=== PATIENT | male | born 1960 | race Hispanic/Latino ===

== ENCOUNTER 2018-06-23 21:01 | Inpatient (IN) | payer SELFPAY ==
[2018-06-23] MEDS ORDERED: Dextrose 5 % And 0.9 % NaCl 1,000 ML IV SCH (22:00)
[2018-06-23] MEDS ORDERED: Lorazepam 2 MG/ML VIAL SLOW IVP PRN (22:13)
[2018-06-23] MEDS: Thiamine HCl 200 MG/2 ML VIAL SLOW IVP SCH ×2 (22:28→22:58)
[2018-06-23] MEDS: Dextrose 5 %-0.45 % NaCl 1,000 ML IV SCH (22:33)
[2018-06-23 22:44] LABS: INR-International Normal Ratio 1.3; PTT 30.2 SEC (22.9-36.1); Prothrombin Time 16.4 SEC (12.0-14.7)
[2018-06-23] MEDS: ADMIXTURE FEE CHEMO IVP SCH (22:58)
[2018-06-23] MEDS: OCTREOTIDE ACETATE IVPB SCH (22:58)
[2018-06-23] MEDS: SODIUM CHLORIDE 0.9% IVP SCH (22:58)
[2018-06-23] MEDS: PANTOPRAZOLE IVP SCH (22:58)
[2018-06-23] MEDS: SODIUM CHLORIDE 0.9% IVPB SCH (22:58)
[2018-06-23 23:03] LABS: ALT (SGPT) 48 U/L (8-55); AST (SGOT) 46 U/L (5-34); Albumin 3.4 g/dL (3.5-5.0); Alkaline Phosphatase 76 U/L (40-150); Anion Gap 12 mmol/L (10-20); BUN (Urea Nitrogen) 17 mg/dL (8.4-25.7); Bilirubin, Total 1.1 mg/dL (0.2-1.2); Calc. Creatinine Clearance 111 mL/min (70-130); Calcium 7.9 mg/dL (7.8-10.44); Carbon Dioxide 22 mmol/L (22-29); Chloride 110 mmol/L (98-107); Estimated GFR-MDRD Greater than 90; Glucose 149 mg/dL (70-105); Potassium 4.7 mmol/L (3.5-5.1); Protein, Total 5.4 g/dL (6.0-8.3); Sodium 139 mmol/L (136-145)
[2018-06-23 23:45] LABS: #Lymphocytes 1.4 thou/uL (1.20-3.40); #Monocytes 0.4 thou/uL (0.11-0.59); #Neutrophils 5.6 thou/uL (1.40-6.50); %Basophils 0.1 % (0.0-1.0); %Eosinophils 0.1 % (0.0-10.0); %Lymphocytes 18.9 % (21.0-51.0); %Monocytes 5.5 % (0.0-10.0); %Neutrophils 75.5 % (42.0-75.0); Hemoglobin 8.9 g/dL (14.0-18.0); MDiff Complete? YES; Macrocytosis SLIGHT = 6-15 cells (100X) (0-5/hpf); Mean Corpuscular HGB CONC 35.4 g/dL (32.0-36.0); Mean Corpuscular Hemoglobin 37.2 pg (27.0-31.0); Mean Platelet Volume 7.5 fL (7.4-10.4); PLT Morphology Comment Appears Decreased; Platelet Count 105 thou/uL (130-400); RBC Distribution Width 12.6 % (11.5-14.5); Red Blood Cell (RBC) Count 2.39 mill/uL (4.70-6.10); White Blood Cell (WBC) Count 7.4 thou/uL (4.8-10.8)
--- NOTE | 2018-06-24 01:11 | HP ---
DATE OF ADMISSION: 06/23/2018 CHIEF COMPLAINT: Vomiting blood. HISTORY OF PRESENT ILLNESS: This is a 57-year-old male with a known history of chronic live r disease with history of chronic smoking and alcohol and severe alcohol consumption. Patient was ne kb hospitalized according to him and has no other known medical issues. He noticed a sudden onset o f vomiting, which started last night with profuse blood vomiting 2-3 times and to the point that he w as feeling dizzy, so he came to the ER and had a thorough evaluation and he was noted to having melan otic stool at the freestanding ER. Patient was transferred to [facility] as a direct admit to the [facility]. Patient was seen in the [facility] with physical therapist technician. Patient denies having any chest pain, n o nausea, no vomiting, no diarrhea at this time. PAST MEDICAL HISTORY: History of chronic alcoholism. PAST SURGICAL HISTORY: None. SOCIAL HISTORY: Patient is a known smoker, smokes half pack a day, and does drink alcohol, 2-3 beers every day. No history of illicit drug use otherwise. FAMILY HISTORY: No significant family history of coronary artery disease or any cancers in the famil y were noted. ALLERGIES: No known drug allergies. HOME MEDICATIONS: None. REVIEW OF SYSTEMS: All 12 systems are reviewed with the patient thoroughly and found to be negative at this time except the ones described in the HPI. Constitutional: Weight loss or gain, sense of we ll-being, ability to conduct usual activities, exercise tolerance. Skin/Breast: Rash, itching, zhu ges in hair growth or loss, nail changes, breast lumps, tenderness, swelling, nipple discharge. Eyes : Vision, double vision, tearing, blind spots, pain. ENT/Mouth: Headaches (location, time of onset , duration, precipitating factors), vertigo, lightheadedness, injury. Vision, double vision, tearing, blind spots, pain, nose bleeding, colds, obstruction, discharge, dental difficulties, gingival bleed ing, dentures, neck stiffness, pain, tenderness, masses in thyroid or other areas. Cardiovascular: Precordial pain, substernal distress, palpitations, syncope, dyspnea on exertion, orthopnea, nocturna l paroxysmal dyspnea, edema, cyanosis, hypertension, heart murmurs, varicosities, phlebitis, claudica tion. Respiratory: Pain, shortness of breath, wheezing, stridor, cough, hemoptysis, fever or night sweats. Gastrointestinal: Poor appetite, dysphagia, indigestion, abdominal pain, heartburn, eructat ion, nausea, vomiting, hematemesis, jaundice, constipation, or diarrhea, abnormal stools (mika-colore d, tarry, bloody, greasy, foul smelling), flatulence, hemorrhoids, recent changes in bowel habits. G enitourinary: Urgency, frequency, dysuria, nocturia, hematuria, polyuria, oliguria, unusual (or zhu ge in) color of urine, stones, hesitancy, change in size of stream, dribbling, acute retention or inc ontinence, libido, potency. Musculoskeletal: Pain, swelling, redness or heat of muscles or joints, limitation, of motion, muscular weakness, atrophy, cramps. Neurologic/Psychiatric: Convulsions, par alyses, tremor, incoordination, paresthesias, difficulties with memory of speech, sensory or motor di sturbances, or muscular coordination (ataxia, tremor), emotional problems, anxiety, depression, previ ous psychiatric care, unusual perceptions, hallucinations. Allergy/Immunologic: Skin rash, anemia, bleeding tendency, polydipsia, polyuria, intolerance to heat or cold. PHYSICAL EXAMINATION: VITAL SIGNS: Blood pressure is 115/59, heart rate is 95, respiratory rate 16, saturation 99%. GENERAL: The patient is moderately built and moderately nourished, does not appear to be in acute di stress at this time. Alert and oriented x3. HEENT: Atraumatic, normocephalic. PERRLA. Extraocular movements were intact. Oral mucosa is pink and moist. CARDIOVASCULAR: S1, S2 normal. No murmurs, rubs, or gallops. LUNGS: Bilateral air entry was equal. No wheezing, no crackles. ABDOMEN: Soft, nontender. No guarding, no rebound tenderness. Bowel sounds normal. MUSCULOSKELETAL: No calf tenderness. No pedal edema. EXTREMITIES: No joint tenderness, no joint swelling. SKIN: No cyanosis, no erythema, no rash, no pallor. NEUROLOGIC: Cranial nerve examination II-XII intact. No focal deficit noted at this time. LABORATORY DATA: WBC is 7.4, hemoglobin is 8.9, hematocrit is 25.1, platelets are 105. His sodium i s 139, potassium 4.7, chloride 110, bicarb is 22, BUN is 17, creatinine is 0.73, blood sugar 149. T 46, ALT 48. ASSESSMENT AND PLAN: 1. Acute severe upper gastrointestinal bleed secondary to chronic alcohol use. 2. Acute thrombocytopenia. 3. Acute anemia of blood loss. 4. Possible history of alcoholic liver cirrhosis. PLAN: 1. Plan is to admit the patient to the [facility] and continue the patient with a Protonix drip at this ti md and we will also start him on octreotide drip, as the patient had severe hematemesis and severely tachycardic at this time. We will consult GI in the morning and keep the patient n.p.o. 2. Patient has acute blood loss and his hemoglobin dropped to 8.9 and tachycardia at this time. We will give 1 unit of PRBC to keep the hemoglobin close to 10 at this time, because of the acute bleedi ng. 3. Patient has severe thrombocytopenia likely from chronic liver disease. We will closely monitor. We will get an ultrasound of the abdomen to look for an evidence of liver cirrhosis. 4. Deep venous thrombosis prophylaxis, SCDs. 5. Patient has history of alcoholism. We will start the patient on thiamine 100 mg daily and with f olic acid. I spent 75 minutes with this patient.
[2018-06-24 07:27] LABS: Anion Gap 11 mmol/L (10-20); BUN (Urea Nitrogen) 14 mg/dL (8.4-25.7); Calc. Creatinine Clearance 113 mL/min (70-130); Calcium 7.5 mg/dL (7.8-10.44); Carbon Dioxide 21 mmol/L (22-29); Chloride 109 mmol/L (98-107); Estimated GFR-MDRD Greater than 90; Glucose 186 mg/dL (70-105); Potassium 3.9 mmol/L (3.5-5.1); Sodium 137 mmol/L (136-145)
[2018-06-24] MEDS: Folic Acid 1 MG TAB PO SCH (09:39)
[2018-06-24] MEDS: Dextrose 5 %-0.45 % NaCl 1,000 ML IV SCH (09:42)
[2018-06-24] MEDS ORDERED: cefTRIAXone Sodium 1,000 MG in Syringe 0 ML IVPB SCH (11:30)
--- NOTE | 2018-06-24 12:13 | OP ---
DATE OF PROCEDURE: 06/24/2018 PROCEDURE: Esophagogastroduodenoscopy (diagnostic). INDICATION FOR PROCEDURE: Hematemesis, melena. DESCRIPTION OF PROCEDURE: After the risks of the procedure were explained to the patient including risks of bleeding, infection, perforation, reaction to anesthesia and/or pain, informed consent was obtained. The patient was then taken to the endoscopy suite where deep sedation was administered via propofol and anesthesia support. Once adequate sedation was achieved, the standard gastroscope was introduced into the mouth with intubation of the esophagus, stomach and the proximal small intestine with the findings listed below. The patient tolerated the procedure well with no immediate perioperative complications. FINDINGS: Esophagus: Normal-appearing mucosa was seen in the proximal and mid esophagus. What appeared to be possible small esophageal varices that flattened completely with insufflation were seen in the distal esophagus extending to the GE junction. They did not exhibit any signs of active/recent bleeding nor did they exhibit any evidence of red spots, fibrin clots, or red faviola sign. There was no evidence of erosions, ulcerations, mass lesions or active/recent bleeding also seen in the distal esophagus. The diaphragmatic pinch was seen at approximately 37 cm while the GE junction was seen at 35 cm denoting a 2 cm hiatal hernia. Stomach: In the proximal stomach within the gastric cardia/within the hernia sac itself were noted to be small red dots with what appeared to be possible red faviola sign within the gastric cardia; however, there were no gastric varices associated with these findings. Given the relative lack of esophageal varices and lack of gastric varices in association with this finding, no intervention was taken at this time; however, throughout the entire remainder of the stomach , including the gastric fundus, body and proximal antrum, there was mild to moderate increased mucosal erythema in a mosaic pattern without any evidence of erosions, ulcerations or active/recent bleeding. Normal appearing mucosa was seen in the gastric antrum. Again, no evidence of active/recent bleeding was seen during this portion of the exam. Duodenum: Normal-appearing mucosa was seen in both the duodenal bulb and second portion of the duodenum. There was no evidence of erosions, ulcerations , mass lesions or active/recent bleeding. IMPRESSION: 1. Possible small distal esophageal varices that flattened completely with insufflation (esophageal varices grade I). 2. 2 cm hiatal hernia. 3. No evidence of gastric varices, but red spots were seen in the gastric cardia concerning for red faviola sign vs portal hypertensive gastropathy vs Camer[place] erosions, but no active bleeding seen in this region as well. 4. [id number] portal hypertensive gastropathy. RECOMMENDATIONS: 1. We would continue to trend H and H and transfuse as necessary to maintain an H and H of 7/21. 2. Continue to monitor clinically for signs of active GI bleeding. 3. We would continue octreotide drip for now with a total therapy duration of 72 hours. 4. We would continue the pantoprazole drip for the next 24 hours, then transfer to pantoprazole 40 mg b.i.d. 5. We would place the patient on ceftriaxone 1 g daily for infection prophylaxis in a patient with an upper gastrointestinal bleed in light of possible cirrhosis. 6. Agree with placing the patient on a possible withdrawal protocol given the amount of alcohol he has been drinking as an outpatient. 7. We would place the patient on propranolol 20 b.i.d. for portal hypertensive gastropathy and probable bleeding from this site. 8. If the patient has repeat episode of hematemesis, continued drop in his H and H or continued melena, would recommend repeat upper endoscopy with possible band ligation of the red spots within the gastric cardia. We will continue to follow. Please call with any questions. KENNEDY
--- NOTE | 2018-06-24 12:22 | CON ---
DATE OF CONSULTATION: 06/24/2018 REASON FOR CONSULTATION: Hematemesis, melena. CONSULTING PHYSICIAN: Dr. Carlos A Mckeon HISTORY OF PRESENT ILLNESS: The patient is a 57-year-old male with past medical history of tobacco abuse, alcohol dependence and chronic liver disease presenting with complaints of hematemesis. He states that he was in his usual state of health until yesterday when he had acute onset of nausea that was shortly followed by vomiting. With his vomitus, he vomited bright red blood approximately 3-4 times continuing into today. He also endorsed approximately 3-4 black color liquid stools during the same time period as well. With the onset of both the nausea, vomiting, and diarrhea, he also had associated increased dizziness, but no loss of consciousness. With the onset of these symptoms prompted him to seek medical care assistance at one of the freestanding Urgent Care Clinics. While in the urgent care clinic, he was noted to have significant anemia as well as melena and ultimately transferred to [facility] for further evaluation. Upon evaluation today, he currently denies any further nausea or vomiting, fevers, chills, shortness of breath, chest pain, dysphagia, odynophagia or further episodes of melena. He does, however, endorse some periumbilical abdominal pain that has been present since this morning characterized as a sharp/cramping type pain, nonradiating and reaching a severity of approximately 3/10. There is no clear alleviating or exacerbating factors with his abdominal pain. REVIEW OF SYSTEMS: A 10-category review of systems was obtained with all responses negative except for the pertinent positives as listed in the HPI. PAST MEDICAL HISTORY: As per HPI. PAST SURGICAL HISTORY: None. FAMILY HISTORY: States that his father was diagnosed with an unknown cancer at the age of 62. Uncle with colon cancer diagnosed after the age of 60. SOCIAL HISTORY: He smokes approximately one half pack per day, but also drinks approximately 2-3 beers daily with more in the weekends consuming upwards of 6- 10 beers on the weekends. Denies any illicit drug use. HOME MEDICATIONS: None. ALLERGIES: No known drug allergies. PHYSICAL EXAMINATION: VITAL SIGNS: Temperature 98.1, pulse 86, blood pressure 105/60, respiratory rate 20, satting 98% on room air. GENERAL: The patient is lying in bed in no acute distress. He is alert and oriented x4. Jordanian speaking only. NECK: Supple. No JVD noted. CARDIOVASCULAR: Regular rate and rhythm with no discernible murmurs, gallops or rubs. LUNGS: Clear to auscultation bilaterally with no discernible wheezes or rales. ABDOMEN: Normoactive bowel sounds, soft, nondistended, mild tenderness to palpation in the suprapubic/periumbilical regions. EXTREMITIES: No cyanosis, clubbing or edema. LABORATORY DATA: CBC with a white blood cell count of 7.4, hemoglobin 8.9, hematocrit 25.1, platelets 105. Chemistry with a sodium of 137, potassium 3.9, chloride 109, CO2 21, BUN 14, creatinine 0.73, glucose 186, AST 46, ALT 48, alkaline phosphatase 76, total bilirubin 1.1, albumin 3.4. INR 1.3, APRI score 1.1. FIB-4 score 3.48. IMAGING DATA: No current GI imaging is available for review. ASSESSMENT AND PLAN: The patient is a 57-year-old male with past medical history of tobacco abuse, alcohol dependence and chronic liver disease presenting with a probable upper GI bleed. Upper GI bleed. The patient is presenting with a longstanding history of alcohol dependence/abuse who was in his usual state of health until yesterday when he had the acute onset of both nausea and vomiting with hematemesis from the first episode. He continued to have hematemesis x3 after that in addition to 3-4 black liquid stools concerning for an upper GI bleeding source. He denies any use of frequent NSAIDs that may contribute to the current problem; however, with his alcohol history, the prospect of cirrhosis is more likely especially with noninvasive calculations of both the APRI and FIB-4 scores showing elevated levels with probable fibrosis and more specifically probable cirrhosis. Differential could also include peptic ulcer disease, arteriovenous malformation, Dieulafoy lesion, esophagitis, gastritis, esophageal varices, gastric varices or possible GI neoplasm. RECOMMENDATIONS: 1. We would keep patient n.p.o. for now with plans for EGD later on this morning. 2. We will proceed with EGD later on today for evaluation of the upper GI tract and identification of a possible GI bleeding source. 3. Would obtain right upper quadrant abdominal ultrasound for visualization of the liver and probable cirrhosis. 4. Strongly recommend alcohol cessation with withdrawal protocols in place given the significant amount of alcohol he is consuming as an outpatient. 5. Further recommendations to follow upper endoscopy. We will continue to follow. Please call with any questions. KENNEDY
[2018-06-24 12:32] LABS: Hemoglobin 8.4 g/dL (14.0-18.0)
[2018-06-24 14:05] VITALS: BMI 27.3
[2018-06-24] MEDS ORDERED: Lidocaine 1% PF 5 ML VIAL ONE (15:02)
[2018-06-24] MEDS ORDERED: PROPOFOL 200 MG/20 ML VIAL ONE (15:02)
[2018-06-24] MEDS: cefTRIAXone\\ROCEPHIN 1 GM in Sodium Chloride 0.9% 100 ML IVPB SCH (15:24)
--- NOTE | 2018-06-24 15:32 | ULT ---
ULTRASOUND ABDOMEN COMPLETE: HISTORY: A 57-year-old male with liver disease, possible cirrhosis. COMPARISON: None. FINDINGS: Liver: Echotexture diffusely slightly heterogeneous. Margins questionably slightly nodular. Not en larged. Gallbladder: Diffuse mural thickening, up to 5 mm, surrounded by pericholecystic fluid/edema. No ga llstones or sludge identified. Common duct: 4 mm. Spleen: 13.5 x 7.5 x 11 cm. Although the greatest dimension is less than 15 cm, the hilum has a lob ulated contour. Pancreas: Nonspecific sonographic appearance. Kidneys: No hydronephrosis. Abdominal aorta: No aneurysm. Inferior vena cava: Hepatic portion unremarkable. Portal vein: Hepatopetal flow in main portal vein. IMPRESSION: 1. Questionable hepatic cirrhosis. 2. Mural thickening and pericholecystic fluid/edema involving the gallbladder. Possible etiologies include hypoalbuminemia and liver disease, and acute cholecystitis. 3. Questionable mild splenomegaly. JN R POS: TPC
[2018-06-24 15:45] LABS: Hemoglobin 8.3 g/dL (14.0-18.0)
--- NOTE | 2018-06-24 15:47 | PDOC.PN ---
- Subjective Encounter Start Date: 06/24/18 Encounter Start Time: 15:45 Subjective: feels much better. passing dark stoolsbut no vomiting -: no abd pain - Objective Resuscitation Status: Resuscitation Status FULL:Full Resuscitation MAR Reviewed: Yes Vital Signs & Weight: Vital Signs (12 hours) Temp Pulse Pulse Resp BP BP Pulse Ox 06/24/18 12:00 98.5 F 93 18 114/73 100 06/24/18 08:00 98.1 F 86 20 06/24/18 07:00 98.1 F 86 20 105/60 98 06/24/18 04:22 98.2 F 75 19 102/61 99 06/24/18 04:01 98.9 F 86 15 102/61 100 Weight Admit Weight 154 lb Weight 154 lb I&O: 06/23/18 06/24/18 06/25/18 06:59 06:59 06:59 Intake Total 1225 Balance 1225 Result Diagrams: 06/24/18 12:21 06/24/18 06:52 Additional Labs: Laboratory Tests 06/23/18 06/24/18 22:28 12:21 Hgb 8.9 L 8.4 L labs reviewed Phys Exam - Physical Examination Constitutional: NAD HEENT: PERRLA, moist MMs, sclera anicteric, oral pharynx no lesions Neck: no nodes, no JVD, supple, full ROM Respiratory: no wheezing, no rales, no rhonchi, clear to auscultation bilateral Cardiovascular: RRR, no significant murmur, no rub Gastrointestinal: soft, non-tender, no distention, positive bowel sounds Musculoskeletal: no edema, pulses present Neurological: non-focal, normal sensation, moves all 4 limbs Psychiatric: normal affect, A&O x 3 Skin: no rash Dx/Plan (1) UGIB (upper gastrointestinal bleed) Code(s): K92.2 - GASTROINTESTINAL HEMORRHAGE, UNSPECIFIED Status: Acute Comment: Monitor H/H.Stable for now. S/P EGD w/o any active bleed (2) Acute blood loss anemia Code(s): D62 - ACUTE POSTHEMORRHAGIC ANEMIA Status: Acute (3) Cholelithiasis and acute cholecystitis without obstruction Code(s): K80.00 - CALCULUS OF GALLBLADDER W ACUTE CHOLECYST W/O OBSTRUCTION Status: Acute (4) Alcohol abuse Code(s): F10.10 - ALCOHOL ABUSE, UNCOMPLICATED Status: Chronic Comment: [facility] protocol (5) Thrombocytopenia Code(s): D69.6 - THROMBOCYTOPENIA, UNSPECIFIED Status: Acute Comment: roshni chronic from Splenomegaly forn liver disease - Plan out of bed/ambulate, DVT proph w/SCDs Cont octreotide & PPI drip. -: add Propranolol for possible varices. -: add rocephin for roshni Cholecystitis,SBP prophylaxis -: monitor H/H serially. -: [facility] protocol * . Review of Systems - Review of Systems Constitutional: negative: fever, chills, sweats, weakness, malaise, other ENT: negative: Ear Pain, Ear Discharge, Nose Pain, Nose Discharge, Nose Congestion, Mouth Pain, Mouth Swelling, Throat Pain, Throat Swelling, Other Respiratory: negative: Cough, Dry, Shortness of Breath, Hemoptysis, SOB with Excertion, Pleuritic Pain, Sputum, Wheezing Cardiovascular: negative: chest pain, palpitations, orthopnea, paroxysmal nocturnal dyspnea, edema, light headedness, other Gastrointestinal: negative: Nausea, Vomiting, Abdominal Pain, Diarrhea, Constipation, Melena, Hematochezia, Other Genitourinary: negative: Dysuria, Frequency, Incontinence, Hematuria, Retention , Other Musculoskeletal: negative: Neck Pain, Shoulder Pain, Arm Pain, Back Pain, Hand Pain, Leg Pain, Foot Pain, Other Skin: negative: Rash, Lesions, Theo, Bruising, Other Neurological: negative: Weakness, Numbness, Incoordination, Change in Speech, Confusion, Seizures, Other - Medications/Allergies Allergies/Adverse Reactions: Allergies Allergy/AdvReac Type Severity Reaction Status Date / Time No Known Allergies Allergy Verified 06/23/18 21:34 Medications: Current Medications Folic Acid (Folvite) 1 mg PO DAILY VARINDER Last Admin: 06/24/18 09:39 Dose: Not Given Dextrose/Sodium Chloride (D5 1/2 Ns) 1,000 mls @ 100 mls/hr IV .Q10H VARINDER Last Admin: 06/24/18 09:42 Dose: 1,000 mls Octreotide Acetate 1,250 mcg/ (Sodium Chloride) 250 mls @ 10 mls/hr IVPB INF VARINDER PRN Reason: 50 MCG/HR Last Admin: 06/23/18 22:58 Dose: 250 mls Pantoprazole Sodium 80 mg/Miscellaneous Medication 1 units/ Sodium Chloride 100 mls @ 10 mls/hr IVP INF VARINDER Last Admin: 06/23/18 22:58 Dose: 100 mls Thiamine HCl 100 mg/ Sodium (Chloride) 51 mls @ 100 mls/hr IVPB Q24HR@2300 VARINDER Ceftriaxone Sodium 1 gm/ (Sodium Chloride) 100 mls @ 200 mls/hr IVPB 1300 VARINDER Stop: 06/29/18 13:01 Last Admin: 06/24/18 15:24 Dose: 100 mls Lorazepam (Ativan) 1 mg SLOW IVP Q4H PRN PRN Reason: Anxiety/Agitation Morphine Sulfate (Morphine) 2 mg SLOW IVP Q4H PRN PRN Reason: Breakthrough Pain Propranolol HCl (Inderal) 20 mg PO Q12HR [facility] Sodium Chloride (Flush - Normal Saline) 10 ml IVF PRN PRN PRN Reason: Saline Flush
[2018-06-24 18:16] LABS: Hemoglobin 8.1 g/dL (14.0-18.0)
[2018-06-24] MEDS: Propranolol 10 MG TAB PO SCH (20:11)
[2018-06-24] MEDS: PANTOPRAZOLE IVP SCH (20:11)
[2018-06-24] MEDS: SODIUM CHLORIDE 0.9% IVP SCH (20:11)
[2018-06-24] MEDS: ADMIXTURE FEE CHEMO IVP SCH (20:11)
[2018-06-24] MEDS: SODIUM CHLORIDE 0.9% IVPB SCH (22:20)
[2018-06-24] MEDS: OCTREOTIDE ACETATE IVPB SCH (22:20)
--- NOTE | 2018-06-25 04:09 | CON ---
DATE OF SERVICE: 06/24/18 HISTORY OF PRESENT ILLNESS: Mr. Vickers is a 57-year-old male with history of heavy drinking. He was vomiting blood and experiencing hematochezia as well as melena by his report. He has undergone endoscopy and since endoscopies had no blood in his stool. PAST MEDICAL HISTORY: Remarkable for alcoholic liver disease. SOCIAL HISTORY: He is half a pack a day smoker. Drinks beer every day. Does not use drugs. FAMILY HISTORY: Negative for lung disease in early age. ALLERGIES: He has no drug allergies. MEDICATIONS: He is on no medications prior to admission. REVIEW OF SYSTEMS: 10-point review of systems completed, otherwise negative. PHYSICAL EXAMINATION: GENERAL: 57-year-old male with history of heavy drinking. VITAL SIGNS: Afebrile, rate 76, respiratory rate is 18, oximetry is 100% on room air. Blood pressure 101/69. HEENT: Pupils are equal. Sclerae is anicteric. LUNGS: Clear. HEART: Regular rhythm, no S3. ABDOMEN: Minimally tender in his epigastrium. EXTREMITIES: Without clubbing, cyanosis, or edema. NEUROLOGIC: Nonfocal. LABORATORY DATA: White count 7.4, hemoglobin has been stable between 8.1 and 8.9 grams. MCV is 105 as expected. Platelet count 205 as expected with alcoholism. Electrolytes are unremarkable. Glucose was 149-186 today. Liver enzymes are mildly elevated with an AST of 46, ALT of 48. Bilirubin is 1.1. IMPRESSION: ? variceal bleed. Endoscopy was not conclusive. PLAN: Continue supportive care. Monitor his hemoglobin and hematocrit, management with the assistance of Gastroenterology, stable to move out of the intermediate care unit in my opinion. This is a 70 minute consult with greater than 50% of time spent on unit with coordination of care. KENNEDY
[2018-06-25 04:31] LABS: #Lymphocytes 1.2 thou/uL (1.20-3.40); #Monocytes 0.3 thou/uL (0.11-0.59); #Neutrophils 1.6 thou/uL (1.40-6.50); %Basophils 0.6 % (0.0-1.0); %Eosinophils 1.4 % (0.0-10.0); %Lymphocytes 37.7 % (21.0-51.0); %Monocytes 9.3 % (0.0-10.0); %Neutrophils 51.1 % (42.0-75.0); Hemoglobin 7.8 g/dL (14.0-18.0); Mean Corpuscular HGB CONC 35.4 g/dL (32.0-36.0); Mean Corpuscular Hemoglobin 37.4 pg (27.0-31.0); Mean Platelet Volume 7.8 fL (7.4-10.4); Platelet Count 73 thou/uL (130-400); Red Blood Cell (RBC) Count 2.08 mill/uL (4.70-6.10); White Blood Cell (WBC) Count 3.2 thou/uL (4.8-10.8)
[2018-06-25 04:41] LABS: Anion Gap 8 mmol/L (10-20); BUN (Urea Nitrogen) 12 mg/dL (8.4-25.7); Calc. Creatinine Clearance 110 mL/min (70-130); Calcium 7.5 mg/dL (7.8-10.44); Carbon Dioxide 25 mmol/L (22-29); Chloride 110 mmol/L (98-107); Estimated GFR-MDRD Greater than 90; Glucose 131 mg/dL (70-105); Potassium 3.9 mmol/L (3.5-5.1); Sodium 139 mmol/L (136-145)
[2018-06-25] MEDS: SODIUM CHLORIDE 0.9% IVP SCH (05:29)
[2018-06-25] MEDS: ADMIXTURE FEE CHEMO IVP SCH (05:29)
[2018-06-25] MEDS: PANTOPRAZOLE IVP SCH (05:29)
[2018-06-25] MEDS: Folic Acid 1 MG TAB PO SCH (08:15)
[2018-06-25] MEDS: Propranolol 10 MG TAB PO SCH ×2 (12:29→21:00)
[2018-06-25] MEDS: cefTRIAXone\\ROCEPHIN 1 GM in Sodium Chloride 0.9% 100 ML IVPB SCH (12:30)
[2018-06-25 14:39] LABS: Hemoglobin 8.3 g/dL (14.0-18.0)
--- NOTE | 2018-06-25 16:31 | PRG ---
DATE OF SERVICE: 06/25/2018 REASON FOR CONSULTATION: Hematemesis, melena, possible cirrhosis SUBJECTIVE: The patient did well overnight with no acute events or problems during that time. Per nursing staff he did have some hypotension this morning ( 86/45) so the propranolol was held. Today, he states that he has had no additional episodes of hematemesis nor melena. Currently, he denies any nausea , vomiting, fevers, chills, abdominal pain, GI bleeding, diarrhea or constipation. He has been able to tolerate a clear liquid diet with no problems. OBJECTIVE: VITAL SIGNS: Temperature 98.3, pulse 77, blood pressure 109/64, respiratory rate 17, satting 98% on room air. GENERAL: The patient is lying in bed, in no acute distress. Alert and oriented x4. CARDIOVASCULAR: Regular rate and rhythm. LUNGS: Clear to auscultation bilaterally. ABDOMEN: Normoactive bowel sounds, soft, nontender, nondistended. EXTREMITIES: No cyanosis, clubbing or edema. LABORATORY DATA: CBC with a white blood cell count of 3.2, hemoglobin 8.3, hematocrit 23.7, platelets 73. Chemistry with a sodium of 139, potassium 3.9, chloride 110, carbon dioxide 25, BUN 12, creatinine 0.75, glucose 131. IMAGING DATA: Abdominal ultrasound obtained on 06/24/2018 showed diffuse slightly heterogeneous echotexture to the liver with questionable slightly nodular margins. However, there was no hepatomegaly or splenomegaly noted. The gallbladder also exhibited diffuse mural thickening up to 5 mm surrounded by pericholecystic fluid/edema. No gallstones or sludge were identified. The pancreas, kidneys, abdominal aorta, inferior vena cava and portal vein were all normal without abnormalities. ASSESSMENT AND PLAN: The patient is a 57-year-old male with past medical history of tobacco abuse, alcohol dependence and chronic liver disease presenting probable with upper GI bleeding and possible cirrhosis. Possible cirrhosis: The patient initially presented with a longstanding history of alcohol dependence/abuse who was in his usual state until approximately 48 hours ago when he had the acute onset of both nausea and vomiting with hematemesis and melenic type stools. He ultimately underwent upper endoscopy on 06/24/2018, which showed mild to moderate portal hypertensive gastropathy as well as small dilated blood vessels in the gastric cardia in the absence of both gastric and esophageal varices. He has not had any further episodes of hematemesis or melena since the upper endoscopy and his H&H has been stable during that same time period as well. Abdominal ultrasound showed slightly nodular morphology to the liver concerning for possible cirrhosis and when coupled with the thrombocytopenia seen on this admission, is again concerning for cirrhosis especially with elevated APRI and FIB-4 scores. RECOMMENDATIONS: 1. We would advance patient's diet to a low sodium, high protein diet as part of cirrhotic type diet. 2. Can transfer patient to pantoprazole 40 mg b.i.d. oral. 3. We would discontinue octreotide given the lack of evidence of esophageal or gastric varices. 4. With hypotension experienced overnight with administration of propranolol, we would decrease propranolol to 10 mg b.i.d. and assess for response. The patient may not be a candidate for nonselective beta blockade due to hypotension associated with medication administration. 5. Strongly recommend alcohol cessation with withdrawal protocols in place. 6. I will order a full liver workup for evaluation of possible other underlying liver disease contributing to possible cirrhosis seen during this admission. 7. We would continue patient on ceftriaxone 1 gram daily for infection prophylaxis in a patient with upper GI bleed with possible cirrhosis. Can discharge patient on ciprofloxacin 500mg daily for total duration of antibiotic therapy being 5 days. 8. We would continue to trend H&H and transfuse as necessary to maintain an H& H of 06/15. We will continue to follow. Please call with any questions. MTDD
--- NOTE | 2018-06-25 17:06 | PDOC.PN ---
- Subjective Encounter Start Date: 06/25/18 Encounter Start Time: 17:05 Subjective: feels well. no more Abd pain,vomiting blood,or BRB TN -: RN reports low BP w Propranolol - Objective Resuscitation Status: Resuscitation Status FULL:Full Resuscitation MAR Reviewed: Yes Vital Signs & Weight: Vital Signs (12 hours) Temp Pulse Resp BP Pulse Ox 06/25/18 15:47 98.3 F 77 17 109/64 06/25/18 11:34 97.2 F L 67 12 97/56 L 06/25/18 08:00 98.4 F 64 16 102/69 06/25/18 07:31 98.8 F 79 14 85/59 L 98 Weight Admit Weight 154 lb Weight 150 lb 5 oz I&O: 06/24/18 06/25/18 06/26/18 06:59 06:59 06:59 Intake Total 1225 1850 Output Total 6 Balance 1225 1844 Result Diagrams: 06/25/18 14:30 06/25/18 03:57 Additional Labs: Laboratory Tests 06/23/18 06/24/18 06/24/18 22:28 12:21 15:37 Hgb 8.9 L 8.4 L 8.3 L 06/24/18 06/25/18 06/25/18 18:09 03:57 14:30 Hgb 8.1 L 7.8 L 8.3 L labs reviewed Phys Exam - Physical Examination Constitutional: NAD HEENT: PERRLA, moist MMs, sclera anicteric, oral pharynx no lesions Neck: no nodes, no JVD, supple, full ROM Respiratory: no wheezing, no rales, no rhonchi, clear to auscultation bilateral Cardiovascular: RRR, no significant murmur, no rub Gastrointestinal: soft, non-tender, no distention, positive bowel sounds Musculoskeletal: no edema, pulses present Neurological: non-focal, normal sensation, moves all 4 limbs Psychiatric: normal affect, A&O x 3 Skin: no rash Dx/Plan (1) UGIB (upper gastrointestinal bleed) Code(s): K92.2 - GASTROINTESTINAL HEMORRHAGE, UNSPECIFIED Status: Acute Comment: Monitor H/H.Stable for now. S/P EGD w/o any active bleed (2) Acute blood loss anemia Code(s): D62 - ACUTE POSTHEMORRHAGIC ANEMIA Status: Acute (3) Cholelithiasis and acute cholecystitis without obstruction Code(s): K80.00 - CALCULUS OF GALLBLADDER W ACUTE CHOLECYST W/O OBSTRUCTION Status: Acute Comment: IV ABx (4) Alcohol abuse Code(s): F10.10 - ALCOHOL ABUSE, UNCOMPLICATED Status: Chronic Comment: [facility] protocol (5) Thrombocytopenia Code(s): D69.6 - THROMBOCYTOPENIA, UNSPECIFIED Status: Acute Comment: roshni chronic from Splenomegaly from liver disease - Plan continue antibiotics, out of bed/ambulate, DVT proph w/SCDs H/H stable. Change IV to PO PPI BID -: DC octreotide drip as EGD did not show Varices per GI -: cont empiric ABx -: OK to transfet to tele -: roshni FIELDS home in am if BP/Hb stable * . Review of Systems - Review of Systems Constitutional: negative: fever, chills, sweats, weakness, malaise, other ENT: negative: Ear Pain, Ear Discharge, Nose Pain, Nose Discharge, Nose Congestion, Mouth Pain, Mouth Swelling, Throat Pain, Throat Swelling, Other Respiratory: negative: Cough, Dry, Shortness of Breath, Hemoptysis, SOB with Excertion, Pleuritic Pain, Sputum, Wheezing Cardiovascular: negative: chest pain, palpitations, orthopnea, paroxysmal nocturnal dyspnea, edema, light headedness, other Gastrointestinal: negative: Nausea, Vomiting, Abdominal Pain, Diarrhea, Constipation, Melena, Hematochezia, Other Genitourinary: negative: Dysuria, Frequency, Incontinence, Hematuria, Retention , Other Musculoskeletal: negative: Neck Pain, Shoulder Pain, Arm Pain, Back Pain, Hand Pain, Leg Pain, Foot Pain, Other Skin: negative: Rash, Lesions, Theo, Bruising, Other Neurological: negative: Weakness, Numbness, Incoordination, Change in Speech, Confusion, Seizures, Other - Medications/Allergies Allergies/Adverse Reactions: Allergies Allergy/AdvReac Type Severity Reaction Status Date / Time No Known Allergies Allergy Verified 06/23/18 21:34 Medications: Current Medications Ferrous Sulfate (Feosol) 325 mg PO TID[facility] Folic Acid (Folvite) 1 mg PO DAILY [facility] Last Admin: 06/25/18 08:15 Dose: 1 mg Ceftriaxone Sodium 1 gm/ (Sodium Chloride) 100 mls @ 200 mls/hr IVPB 1300 VARINDER Stop: 06/29/18 13:01 Last Admin: 06/25/18 12:30 Dose: 100 mls Lorazepam (Ativan) 1 mg SLOW IVP Q4H PRN PRN Reason: Anxiety/Agitation Morphine Sulfate (Morphine) 2 mg SLOW IVP Q4H PRN PRN Reason: Breakthrough Pain Pantoprazole Sodium (Protonix) 40 mg PO Q12HR VARINDER Propranolol HCl (Inderal) 10 mg PO Q12HR VARINDER Sodium Chloride (Flush - Normal Saline) 10 ml IVF PRN PRN PRN Reason: Saline Flush Thiamine HCl (Thiamine) 100 mg PO DAILY VARINDER
[2018-06-25] MEDS: Ferrous Sulfate 325 MG TAB PO SCH (18:03)
--- NOTE | 2018-06-25 18:11 | PRG ---
DATE OF SERVICE: 06/25/2018 SUBJECTIVE: Mr. Vickers denies having any bleeding. OBJECTIVE: VITAL SIGNS: Have been stable. He is afebrile, heart rate 67, respiratory rate 12, and blood pressu re 97/56. LUNGS: Clear. HEART: Regular rhythm. ABDOMEN: Soft and nontender. LABORATORY DATA: Hemoglobin was 8.1 last night, 7.8 this morning, and 8.3 this afternoon. IMPRESSION: ? variceal bleed, clinically stable. He can move out of the Intermediate Care Unit.
[2018-06-26 04:08] LABS: Hemoglobin 8.2 g/dL (14.0-18.0)
[2018-06-26 04:45] LABS: HBSAB Concentration 1.98 mIU/mL; Hep B Core Total Ab Non-Reactive (NonReactive); Hep B Core Total Index 0.08 S/CO (0-0.79); Hep B Surf AB Non-Reactive (NonReactive); Hep B Surf Ag Non-Reactive S/CO (NonReactive); Hep C IgG Ab Non-Reactive (NonReactive); Hep C Index 0.05 S/CO (0-0.79)
[2018-06-26] MEDS: Folic Acid 1 MG TAB PO SCH (08:30)
[2018-06-26] MEDS: Ferrous Sulfate 325 MG TAB PO SCH ×2 (08:30→13:32)
[2018-06-26] MEDS: Propranolol 10 MG TAB PO SCH (08:30)
--- NOTE | 2018-06-26 11:39 | PRG ---
DATE OF SERVICE: 06/26/2018 REASON FOR CONSULTATION: Hematemesis, melena, possible cirrhosis. SUBJECTIVE: The patient did well overnight with no acute events or problems. He did not have any fu rther episodes of hypotension with administration of propranolol yesterday. Today, he states that he is doing well with no complaints of nausea, vomiting, fevers, chills, abdominal pain, GI bleeding, d iarrhea, constipation, encephalopathy or jaundice. He had been able to tolerate a low sodium diet we with no difficulties. OBJECTIVE: VITAL SIGNS: Temperature 98.2, pulse 63, blood pressure 112/67, respiratory rate 18, satting 96% on room air. GENERAL: The patient is lying in bed, in no acute distress. Alert and oriented x4. HEART: Regular rate and rhythm. LUNGS: Clear to auscultation bilaterally. ABDOMEN: Normoactive bowel sounds, soft, nontender, nondistended. EXTREMITIES: No cyanosis, clubbing or edema. LABORATORY DATA: CBC with a hemoglobin of 8.2, hematocrit 22.8. Serologies for both hepatitis B and hepatitis C were both negative. Immunoglobulin profile was normal. IMAGING DATA: No current GI imaging is available for review. ASSESSMENT AND PLAN: The patient is a 57-year-old male with past medical history of tobacco abuse, a lcohol dependence and chronic liver disease presenting with upper GI bleeding and probable cirrhosis. Probable cirrhosis: The patient initially presented with a longstanding history of alcohol dependenc e/abuse, who presented with acute onset of hematemesis and melenic type stools. He subsequently unde rwent upper endoscopy on 06/24/2018 which showed mild to moderate portal hypertensive gastropathy as well as small dilated blood vessels in the gastric cardia, both consistent with portal hypertensive g astropathy and most likely the source of his hematemesis/melena. Over the last 48 hours, he has not had any further episodes of hematemesis or melena and has had stabilization of his H&H as well. Abdo ivy ultrasound obtained during this admission showed nodular morphology to the liver concerning for possible cirrhosis and when coupled with thrombocytopenia and elevated APRI and FIB-4 scores is sugg estive of cirrhosis. RECOMMENDATIONS: 1. We would continue the patient on pantoprazole 40 mg b.i.d. until seen in clinic. 2. We would continue propranolol 10 mg b.i.d. until seen as an outpatient in clinic. 3. We will follow up on the full liver workup obtained during this admission for possible other unde rlying liver disease contributing to possible cirrhosis. 4. We would consider transferring the patient to ciprofloxacin 500 mg daily for antibiotic prophylax is for infection in a cirrhotic individual with an upper GI bleed with total antibiotic therapy being 5 days (would received 2 additional days of antibiotics as an outpatient). 5. Strongly recommend alcohol cessation. 6. Continue current diet. 7. We would continue to trend H&H and transfuse as necessary to maintain an H&H of 7/ while inpati ent. From our standpoint, the patient is stable to be discharged with follow up in the GI clinic as an out patient. We will sign off at this time. Please call with any additional questions.
[2018-06-26 11:42] VITALS: BP 103/64; TEMP 98.1
[2018-06-26] MEDS: cefTRIAXone\\ROCEPHIN 1 GM in Sodium Chloride 0.9% 100 ML IVPB SCH (13:33)
--- NOTE | 2018-06-26 13:42 | DIS ---
DATE OF ADMISSION: 06/24/2018 DATE OF DISCHARGE: 06/26/2018 CONDITION AT THE TIME OF DISCHARGE: Stable and improved. DISCHARGE DISPOSITION: Home. PRIMARY CARE PHYSICIAN: None. Patient is instructed to follow up and set up a primary care physicia n. DISCHARGE DIAGNOSES: 1. Upper gastrointestinal bleed, likely secondary to alcoholic gastritis or esophagitis with possibl e variceal bleed. 2. Acute blood loss anemia. 3. Cholecystitis with possible acute cholecystitis. 4. Chronic alcohol abuse. 5. Thrombocytopenia from chronic alcoholism. CONSULTATION INHOUSE: Gastroenterology, Dr. Jansen. PROCEDURES DONE IN THE HOSPITAL: Include EGD which does not show any specific esophageal or gastric varices. There was some possibility of distal esophageal varices that flattened completely with insu fflation during EGD. He had mild to moderate portal hypertensive gastropathy. DISCHARGE MEDICATIONS: Are as follows; thiamine 100 mg daily, propranolol 10 mg p.o. b.i.d., Protoni x 40 mg p.o. b.i.d., folic acid 1 mg daily, ferrous sulfate 325 mg p.o. t.i.d., ciprofloxacin 500 mg p.o. daily for 3 more days. OUTPATIENT FOLLOWUP: 1. Primary care physician. 2. GI, Dr. Jansen. HISTORY OF PRESENTING ILLNESS: Mr. Vickers is a pleasant 57-year-old male without any sign ificant past medical history or past medical care except for chronic heavy alcoholism who presented t o the ER with complaints of vomiting blood. He has never had the similar symptoms in the past and beltre s never been admitted. He had profuse bloody vomiting 2-3 times and was feeling dizzy prior to comin g to the ER. He was admitted to [facility]. At the time of admission, he was hemodynamically stable with blood pressure of 115/59. His hemoglobin was 8.9 with hematocrit of 25.1. He was started on octreot chetan drip and Protonix drip, given his history of alcoholism and possibility of variceal bleed and por antonette hypertension. He was started on IV fluids as well. He was found to be thrombocytopenic with a p latelet count of 105. Please see admission history and physical for further detail for full informat ion. HOSPITAL COURSE: The patient was seen by Dr. Jansen and serial hemoglobin and hematocrit were followe d. His hemoglobin remained stable and he did not have any bleeding while he was here. He was transf used with 1 unit of blood when his hemoglobin went down from 8.1-7.8 without any bleed. His workup f or hepatic pathology including acute hepatitis panel was negative. IgG, IgA and IgM were checked and were within normal ranges. He underwent an EGD which did not show any specific varices per se, but that the possibility of esoph ageal varices as above. He had some portal hypertensive gastropathy. He was eventually weaned off o f the octreotide and Protonix drip as his hemoglobin and hematocrit was stable and diet was advanced and he had no more bleeding. He was started on inderal for portal hypertension with some resultant h ypotension, so the dose was adjusted. He was started on empiric antibiotics, IV hospital in setting of cirrhosis and GI bleed. He was discharged on oral antibiotics. Abdominal ultrasound was done which showed questionable hepatic cirrhosis and mild pericholecystic fl uid and mural thickening of the gallbladder with the possibility of cholecystitis. CBD was not dilat ed. He was treated and continued on antibiotics for this. As of this morning, he is back to his baseline and is hemodynamically stable and was cleared for disc harge from GI purposes. He will follow up with Dr. Jansen in the outpatient setting. Extensive alcoh olic counseling was provided to the patient. He was seen and examined prior to discharge. PHYSICAL EXAMINATION: VITAL SIGNS: This morning, temperature 98.1, pulse of 59, respirations 20, saturating 97% on room ai r, blood pressure 103/64. GENERAL: No acute distress, awake, alert, oriented x3. CHEST: Clear to auscultation. ABDOMEN: Soft, nontender and nondistended. Discharge plan was discussed with the patient and his son present in the room and they verbalized und erstanding. DISCHARGE LABORATORY DATA: Hemoglobin 8.2, which was 8.9 on presentation with hematocrit of 22.8, ot herwise unremarkable. Total time spent 32 minutes.
[2018-06-26 14:53] LABS: ANA Symphony (Qualitative) Negative (Negative); EliA Vaculitis New Method **** NEW METHOD ****; Mitochondrial Ab 0.7 U/mL (<4 Negative); dsDNA IgG Antibody Less than 0.5 IU/mL (<10 Negative)
[2018-06-26 19:13] LABS: H. pylori IgA ABS Less than 9.0 units (0.0-8.9); H. pylori IgG ABS Greater than 9.40 (0.00-0.79); H. pylori IgM ABS Less than 9.0 units (0.0-8.9)
== END 2018-06-26 15:38 | disposition home or self-care (01) | DRG 378 ==
LOC: IMCU/EMU 21:23 → T4-A 06-25 19:23
PROVIDERS: ADMIT Internal Medicine; ATTEND Internal Medicine
PROC: 30233N1 Transfusion of Nonautologous Red Blood Cells into Peripheral Vein, Percutaneous Approach (ICD-10-PCS; principal; 2018-06-24)
PROC: 0DJ08ZZ Inspection of Upper Intestinal Tract, Via Natural or Artificial Opening Endoscopic (ICD-10-PCS; 2018-06-24)
DX: K92.0 Hematemesis (principal); D62 Acute posthemorrhagic anemia; K76.6 Portal hypertension; K76.9 Liver disease, unspecified; F10.20 Alcohol dependence, uncomplicated; F17.210 Nicotine dependence, cigarettes, uncomplicated; D69.6 Thrombocytopenia, unspecified; K44.9 Diaphragmatic hernia without obstruction or gangrene; K31.89 Other diseases of stomach and duodenum; K92.1 Melena; I99.8 Other disorder of circulatory system; K29.20 Alcoholic gastritis without bleeding; K81.9 Cholecystitis, unspecified
CPT/HCPCS: 36415; 36430; 76700; 80048; 80053; 82103; 82390; 83516; 85014; 85018; 85025; 85610; 85730; 86038; 86225; 86704; 86706; 86803; 86850; 86900; 86901; 87340; C9113; J0696; J2001; J2354; J2704; J3411; J7050; P9016

== ENCOUNTER 2018-10-15 18:23 | Inpatient (IN) | payer OTHER, SELFPAY ==
[2018-10-15 18:50] LABS: #Lymphocytes 1.4 thou/uL (1.20-3.40); #Monocytes 0.3 thou/uL (0.11-0.59); #Neutrophils 5.4 thou/uL (1.40-6.50); %Basophils 0.6 % (0.0-1.0); %Eosinophils 0.6 % (0.0-10.0); %Lymphocytes 19.2 % (21.0-51.0); %Monocytes 3.5 % (0.0-10.0); %Neutrophils 76.1 % (42.0-75.0); Hemoglobin 8.9 g/dL (14.0-18.0); Mean Corpuscular Hemoglobin 31.7 pg (27.0-31.0); Mean Corpuscular Volume 95.9 fL (78.0-98.0); Mean Platelet Volume 8.3 fL (7.4-10.4); Platelet Count 125 thou/uL (130-400); RBC Distribution Width 14.8 % (11.5-14.5); Red Blood Cell (RBC) Count 2.82 mill/uL (4.70-6.10); White Blood Cell (WBC) Count 7.1 thou/uL (4.8-10.8)
[2018-10-15 18:56] LABS: INR-International Normal Ratio 1.2; PTT 29.7 SEC (22.9-36.1); Prothrombin Time 15.2 SEC (12.0-14.7)
[2018-10-15] MEDS ORDERED: Pantoprazole 40 MG VIAL ONE (19:12)
[2018-10-15 19:14] LABS: ALT (SGPT) 32 U/L (8-55); AST (SGOT) 35 U/L (5-34); Albumin 3.5 g/dL (3.5-5.0); Alkaline Phosphatase 122 U/L (40-150); Anion Gap 10 mmol/L (10-20); BUN (Urea Nitrogen) 15 mg/dL (8.4-25.7); Bilirubin, Total 1.6 mg/dL (0.2-1.2); Calc. Creatinine Clearance 0 mL/min (70-130); Calcium 9.1 mg/dL (7.8-10.44); Carbon Dioxide 23 mmol/L (22-29); Chloride 108 mmol/L (98-107); Estimated GFR-MDRD Greater than 90; Globulin 2.5 g/dL (2.4-3.5); Glucose 177 mg/dL (70-105); Potassium 4.4 mmol/L (3.5-5.1); Sodium 137 mmol/L (136-145)
--- NOTE | 2018-10-15 19:54 | PDOC.FPRHP ---
- History of Present Illness Chief Complaint: hematemesis History of Present Illness: Patient is a 58YO gentleman with a PMH significant for alcoholic cirrhosis with known esophageal varices who presented to the ED with a chief complaint of dark, bloody vomit that started around 4PM today. The patient stated that around 3PM he began to feel weak and had a dry mouth and about 1 hour later her threw up a couple of times and noticed that there was some dark blood in his vomit. He said it was not a large amount but enough for him to notice. He then threw up a few more times around 5:30PM but did not have anymore vomiting after that time. He denied any associated sore throat, abdominal pain, fever or chills. He did endorse some diarrhea but stated that there was no bright red blood and said his stool was not black either. ED Course: Patient was given 1L of NS, 40mg IV protonix, 1g of IV rocephin, & 250mcg of IV octreotide. Was also started on NS @ 125mL/hr and IV octreotide at 50mcg/hr. - Allergies/Adverse Reactions Allergies Allergy/AdvReac Type Severity Reaction Status Date / Time No Known Allergies Allergy Verified 06/23/18 21:34 - Home Medications Medication Instructions Recorded Confirmed Type Propranolol [Inderal] 10 mg PO BID #60 tab 06/26/18 10/16/18 Rx - History PMHx: alcoholic cirrhosis w/ esophageal varices PSHx: None FHx: colon CA- uncle HTN - mother Social: Former EtOH & tobacco use. None since his last admission this past May. No drug use. - Review of Systems General: denies: fever/chills Eyes: denies: vision changes ENT: reports: other (no sore throat). denies: nasal congestion Respiratory: denies: cough, congestion, shortness of breath Cardiovascular: denies: chest pain, palpitation Gastrointestinal: reports: nausea, vomiting, diarrhea, GI bleeding. denies: constipation, abdominal pain Genitourinary: reports: other (no hematuria). denies: dysuria Skin: denies: rashes, jaundice Musculoskeletal: denies: pain, arthritis/arthralgias Neurological: denies: syncope Psychological: denies: anxiety, depression - Vital signs BP: 152/81 HR: 103 RR: 19 Tmax: 98.4F Pox: 99% on RA Wt: 67.13kg - Physical Exam Constitutional: NAD, awake, alert and oriented, well developed HEENT: normocephalic and atraumatic, conjunctiva clear, no scleral icterus, grossly normal vision, grossly normal hearing, MMM, oropharynx clear Neck: supple, FROM Chest: no-tender to palpation, no lesions Heart: normal S1/S2, pulses present, no edema (tachycardic with regular rate) Lungs: CTAB, no respiratory distress, no wheezing Abdomen: soft, non-tender, bowel sounds present Musculoskeletal: normal structure, ROM grossly normal Neurological: no focal deficit, CN II-XII intact Skin: no rash/lesions, good turgor, no jaundice Heme/Lymphatic: no unusual bruising or bleeding Psychiatric: normal mood and affect, good judgment and insight, intact recent and remote memory FMR H&P: Results - Labs Result Diagrams: 10/16/18 02:49 10/16/18 02:49 Lab results: WBC 7.1 thou/uL (4.8-10.8) 10/15/18 18:40 Hgb 8.9 g/dL (14.0-18.0) L 10/15/18 18:40 Hct 27.0 % (42.0-52.0) L 10/15/18 18:40 MCV 95.9 fL (78.0-98.0) 10/15/18 18:40 Plt Count 125 thou/uL (130-400) L 10/15/18 18:40 Neutrophils % 76.1 % (42.0-75.0) H 10/15/18 18:40 Sodium 137 mmol/L (136-145) 10/15/18 18:40 Potassium 4.4 mmol/L (3.5-5.1) 10/15/18 18:40 Chloride 108 mmol/L (98-107) H 10/15/18 18:40 Carbon Dioxide 23 mmol/L (22-29) 10/15/18 18:40 BUN 15 mg/dL (8.4-25.7) 10/15/18 18:40 Creatinine 0.81 mg/dL (0.6-1.3) 10/15/18 18:40 Glucose 177 mg/dL (70-105) H 10/15/18 18:40 Calcium 9.1 mg/dL (7.8-10.44) 10/15/18 18:40 Total Bilirubin 1.6 mg/dL (0.2-1.2) H 10/15/18 18:40 AST 35 U/L (5-34) H 10/15/18 18:40 ALT 32 U/L (8-55) 10/15/18 18:40 Alkaline Phosphatase 122 U/L (40-150) 10/15/18 18:40 Serum Total Protein 6.0 g/dL (6.0-8.3) 10/15/18 18:40 Albumin 3.5 g/dL (3.5-5.0) 10/15/18 18:40 - EKG Interpretation EKG: NSR. FMR H&P: A/P - Problem List (1) UGIB (upper gastrointestinal bleed) Current Visit: No Status: Acute Code(s): K92.2 - GASTROINTESTINAL HEMORRHAGE , UNSPECIFIED (2) Acute blood loss anemia Current Visit: No Status: Acute Code(s): D62 - ACUTE POSTHEMORRHAGIC ANEMIA (3) Tobacco abuse Current Visit: Yes Status: Resolved Code(s): Z72.0 - TOBACCO USE (4) Esophageal varices in alcoholic cirrhosis Current Visit: Yes Status: Chronic Code(s): K70.30 - ALCOHOLIC CIRRHOSIS OF LIVER WITHOUT ASCITES; I85.10 - SECONDARY ESOPHAGEAL VARICES WITHOUT BLEEDING - Plan 58YO male w/ a PMH significant for esophageal varices 2/2 alcoholic cirrhosis who presents to the ED w/ a CC of several episodes of hematemesis this afternoon. Upper GI bleed: - Hgb 8.9 on admission and patient has been in and out of tachycardia. Was given 1L of NS and GI, Dr. Warner, was consulted in the ED. Most likely 2/2 known esophageal varices but could be due to new PUD. - Will keep NPO and continue on IVFs w/ D5NS @ 125mL/hr overnight in anticipation of EGD in the AM per GI. - Will also continue IV octreotide & rocephin per GI recs and start on IV protonix Q12H. - Will continue to monitor H/H closely w/ hemagrams Q4H. - Will continue to monitor vitals closely overnight. Anemia 2/2 suspected variceal bleed: - Hgb 8.9 on admission which is stable from previous admission ~5 months ago. - Will continue w/ IVFs and continue to monitor H/H closely w/ hemagrams Q4H. - Will type and cross and transfuse PRN. - Will resume PO iron and home dose of vitamin B1 once able to take PO. h/o known esophageal varices: - Will resume home propanolol once cleared to take PO and treatment for upper GI bleed as outlined above. - GI on board, appreciate recs. Alcoholic Cirrhosis: - Aware, patient follows w/ Dr. Jansen with GI. - Patient no longer drinking since last hospital admission. HTN: - BPs have been elevated w/ SBP ranging from 150s-160s since arrival to ED. However, per patient he did not taker his home propanolol dose today. - Will resume home propanolol dose once taking PO and continue to monitor closely. Hyperglycemia: - BG of 177 on admission w/ a recent fasting BG of 102. - Suspect possible DMII or pre-DMII. - Will order a repeat BMP in the AM. FMR H&P: Upper Level - Pertinent history 58 yo M with PMHx alcohol cirrhosis presents after a few episodes of hematemesis this afternoon. He started feeling poorly at work around 3 pm and then had 2 episodes of light hematemesis (dark, mixed with vomit) around 4pm. He then got home and took a shower at which point he became nauseous and had another episode. At that time he proceeded to ER. He also endorses 3 loose stools this afternoon without any visible blood or melena. He felt a little dizzy during this time but that has since resolved. - Pertinent findings Gen: awake, alert, oriented HEENT: sclera anicteric, no conjunctival injection, slightly pale conjunctiva CV: tachycardic, regular rhythm, no murmur noted RESP: CTAB ABD: soft, nontender, nondistended EXT: pulses 2+ throughout Neuro: strength 5/5 in all extremities, symmetric facial movements - Plan Date/Time: 10/15/181950 58 yo M who presents with hematemsis likely 2/2 esophageal varices 1. Upper GI bleed: Dr. Warner consulted in ED and will see in AM if he remains stable overnight. Octreotide drip started. NPO and will start on IV fluids. Continue rocephin and octreotide as well as PPI. q4h H&H. Type and screen. H&H stable from labs done in June (9.1/26.8). Extensive w/u done on last admission and he last saw Dr. Jansen on 08/28/18. At that time a repeat RUQ sono was recommended for 6 months from now and repeat EGD in 2 years. I, Delia Dick MD, PGY-3, have evaluated this patient and agree with findings/ plan as outlined by design intern resident. Pertinent changes/additions are listed here. Attending Addendum - Attending Addendum Date/Time: 10/16/18 0711 I personally evaluated the patient and discussed the management with Dr. Batista on 10/15/2018 I agree with the History, Examination, Assessment and Plan documented above with any addition or exceptions noted below- 58 yo male with h/o alcohol use none since May and h/o portal gastropathy presents after few episodes of hematemesis. States that he had a few bouts of vomiting and noted some bright red blood in vomitus. Denies any abdominal pain, nausea, diarrhea, BRBPR. Denies any fever/chills. No change in stool. Followed by GI as outpatient due to h/u GI bleed that occurred in May 2018. PMH/PSH/Meds/SH reviewed and agree with resident's documentation. Afebrile P100 BP 152/80 Exam repeated by me and agree with resident's findings. Labs: H/H= 8.9/27, Qif=422, INR=1.2, FQ=549 , K=4.4, Cv=237, CO2=23, BUN/Cr=15/0.81, Jloy=852, tbili=1.6, AST/ALT=35/32. A/P: 1) Hematemesis- possible variceal bleed vs gastric/duodenal ulcer vs gastritis- monitor serial H/H. Continue octreotide and protonix drip. Consult GI. 2) H/o alcohol abuse- reports last drink was in May; continue to monitor. 3 ) Hyperglycemia- will check serial accuchecks and HgbA1c.
[2018-10-15] MEDS ORDERED: cefTRIAXone\\ROCEPHIN 1 GM VIAL ONE (20:21)
[2018-10-15] MEDS ORDERED: Octreotide Acetate 500 MCG/ML VIAL SLOW IVP SCH (20:30)
[2018-10-15] MEDS ORDERED: Octreotide Acetate 1,250 MCG in Sodium Chloride 0.9% 250 ML 250 ML IVPB SCH (20:30)
[2018-10-15] MEDS ORDERED: Ondansetron ODT 4 MG TAB SL PRN (23:06)
[2018-10-15] MEDS ORDERED: Dextrose 5 % And 0.9 % NaCl 1,000 ML IV SCH (23:06)
[2018-10-15] MEDS ORDERED: Ondansetron PF 4 MG/2 ML Vial IVP PRN (23:06)
[2018-10-16] MEDS ORDERED: Sodium Chloride 0.9% 1,000 ML IV SCH (02:53)
[2018-10-16] MEDS ORDERED: Ondansetron ODT 4 MG TAB PO PRN (02:53)
[2018-10-16] MEDS ORDERED: Ondansetron PF 4 MG/2 ML Vial IVP PRN (02:53)
[2018-10-16] MEDS ORDERED: Acetaminophen 500 MG TAB PO PRN (02:53)
[2018-10-16 03:13] LABS: Hemoglobin 7.1 g/dL (14.0-18.0); Mean Corpuscular HGB CONC 31.9 g/dL (32.0-36.0); Mean Corpuscular Hemoglobin 30.8 pg (27.0-31.0); Mean Corpuscular Volume 96.6 fL (78.0-98.0); Mean Platelet Volume 8.7 fL (7.4-10.4); Platelet Count 78 thou/uL (130-400); RBC Distribution Width 14.8 % (11.5-14.5); Red Blood Cell (RBC) Count 2.29 mill/uL (4.70-6.10); White Blood Cell (WBC) Count 4.1 thou/uL (4.8-10.8)
[2018-10-16 03:21] LABS: Anion Gap 10 mmol/L (10-20); BUN (Urea Nitrogen) 14 mg/dL (8.4-25.7); Calc. Creatinine Clearance 114 mL/min (70-130); Calcium 8.1 mg/dL (7.8-10.44); Carbon Dioxide 21 mmol/L (22-29); Chloride 113 mmol/L (98-107); Estimated GFR-MDRD Greater than 90; Glucose 180 mg/dL (70-105); Potassium 4.2 mmol/L (3.5-5.1); Sodium 140 mmol/L (136-145)
--- NOTE | 2018-10-16 06:17 | PDOC.FM ---
- Subjective Subjective: Patient doing well this AM. No significant overnight events. Patient has not had any further episodes of bloody emesis. He states he feels great and has felt great even yesterday when he had bloody emesis. He states that the only reason he came in was because he was scared. He denies chest pain, shortness of breath, diaphoresis, abdominal pain, bloody stools. - Objective MAR Reviewed: Yes Vital Signs & Weight: Vital Signs (12 hours) Temp Pulse Resp BP Pulse Ox 10/16/18 02:55 98.4 F 90 20 101/60 100 10/15/18 22:50 98.6 F 99 16 124/66 97 Weight Weight 69.717 kg I&O: 10/14/18 10/15/18 10/16/18 06:59 06:59 06:59 Intake Total 1000 Balance 1000 Result Diagrams: 10/16/18 07:08 10/16/18 02:49 EKG Reviewed by me: No Radiology Reviewed by me: No <Vianney Somers - Last Filed: 10/16/18 08:57> - Objective Vital Signs & Weight: Weight Admit Weight 69.218 kg Weight 67.857 kg Result Diagrams: 10/18/18 12:46 10/17/18 04:37 <Blanche Kee - Last Filed: 10/21/18 09:41> Phys Exam - Physical Examination Constitutional: NAD HEENT: moist MMs Neck: supple Respiratory: clear to auscultation bilateral Cardiovascular: RRR Gastrointestinal: soft, non-tender, no distention, positive bowel sounds Musculoskeletal: no edema, pulses present Neurological: non-focal Psychiatric: normal affect, A&O x 3 Skin: no rash, cap refill <2 seconds <Vianney Somers - Last Filed: 10/16/18 08:57> Dx/Plan (1) Acute blood loss anemia Code(s): D62 - ACUTE POSTHEMORRHAGIC ANEMIA Status: Acute (2) UGIB (upper gastrointestinal bleed) Code(s): K92.2 - GASTROINTESTINAL HEMORRHAGE, UNSPECIFIED Status: Acute (3) Esophageal varices in alcoholic cirrhosis Code(s): K70.30 - ALCOHOLIC CIRRHOSIS OF LIVER WITHOUT ASCITES; I85.10 - SECONDARY ESOPHAGEAL VARICES WITHOUT BLEEDING Status: Chronic (4) Tobacco abuse Code(s): Z72.0 - TOBACCO USE Status: Resolved (5) Thrombocytopenia Code(s): D69.6 - THROMBOCYTOPENIA, UNSPECIFIED Status: Chronic (6) Alcohol abuse Code(s): F10.10 - ALCOHOL ABUSE, UNCOMPLICATED Status: Resolved - Plan Plan: 58YO male w/ a PMH significant for esophageal varices 2/2 alcoholic cirrhosis who presents to the ED w/ a CC of several episodes of hematemesis yesterday afternoon. Upper GI bleed: - Hgb 8.9 on admission. Was given 1L of NS and GI, Dr. Warner, was consulted in the ED. Most likely 2/2 known esophageal varices but could be due to new PUD. - Keep NPO and continue on IVFs w/ NS @ 125 mL/hr in anticipation of EGD this AM per GI. - Continue IV octreotide & rocephin per GI recs. - Continue IV protonix Q12H. - Continue to monitor H/H closely w/ hemagrams Q4H. H/H this AM 7.1/22.1. Asymptomatic and VSS. Type and crossed 2 units pRBC's. - Continue to monitor vitals closely. Anemia 2/2 suspected variceal bleed: - Hgb 8.9 on admission which is stable from previous admission ~5 months ago. Hg fell to 7.1 this AM. - Continue w/ IVFs and continue to monitor H/H closely w/ hemagrams Q4H. - Transfuse if Hg <7 or patient symptomatic. - Continue PO iron h/o known esophageal varices: - Will resume home propanolol once cleared to take PO and treat for upper GI bleed as outlined above. - GI consulted, appreciate recs. Alcoholic Cirrhosis: - Aware, patient follows w/ Dr. Jansen with GI. - Patient no longer drinking since last hospital admission. HTN: - BP 101/60 this AM. - Will resume home propanolol dose once taking PO and continue to monitor closely. Hyperglycemia: - BG of 177 on admission w/ a recent fasting BG of 102. - Suspect possible DMII or pre-DMII. Will get HgA1c. Dispo: Stable. Plan for EGD today per GI. Appreciate recs. <Vianney Somers - Last Filed: 10/16/18 08:57> (1) Acute blood loss anemia Code(s): D62 - ACUTE POSTHEMORRHAGIC ANEMIA Status: Acute (2) Tobacco abuse Code(s): Z72.0 - TOBACCO USE Status: Chronic (3) Esophageal varices in alcoholic cirrhosis Code(s): K70.30 - ALCOHOLIC CIRRHOSIS OF LIVER WITHOUT ASCITES; I85.10 - SECONDARY ESOPHAGEAL VARICES WITHOUT BLEEDING Status: Chronic <Blanche Kee - Last Filed: 10/21/18 09:41> Attending Addendum - Attending Addendum Date/Time: 10/21/18928 I personally evaluated the patient and discussed the management with Dr. Somers on 10/16/18 I agree with the History, Examination, Assessment and Plan documented above with any addition or exceptions noted below- Patient without complaints. No further hematemesis. Afebrile VSS. A/P: 1) Upper GI bleed most likely secondary to varices- continue octreotide and protonix. Plan for EGD today with GI. Hgb= 7.1 today. Continue to monitor serial H/H. Transfuse below 7mg/dL. 2) Cirrhosis - stable. <Blanche Kee - Last Filed: 10/21/18 09:41>
[2018-10-16 07:21] LABS: Mean Corpuscular HGB CONC 31.9 g/dL (32.0-36.0); Mean Corpuscular Hemoglobin 30.9 pg (27.0-31.0); Mean Corpuscular Volume 96.8 fL (78.0-98.0); Mean Platelet Volume 8.3 fL (7.4-10.4); Platelet Count 68 thou/uL (130-400); RBC Distribution Width 14.6 % (11.5-14.5); Red Blood Cell (RBC) Count 2.27 mill/uL (4.70-6.10); White Blood Cell (WBC) Count 3.4 thou/uL (4.8-10.8)
[2018-10-16] MEDS: Pantoprazole 40 MG VIAL IVP SCH ×2 (08:27→20:19)
[2018-10-16] MEDS ORDERED: Propranolol 10 MG TAB PO SCH ×2 (09:00)
[2018-10-16] MEDS ORDERED: Ondansetron PF 4 MG/2 ML Vial ONE (09:54)
[2018-10-16] MEDS ORDERED: Succinylcholine Chloride 20 MG/ML 10 ml SYRINGE FS ONE (09:54)
[2018-10-16] MEDS ORDERED: PROPOFOL 200 MG/20 ML VIAL ONE (09:54)
[2018-10-16] MEDS ORDERED: Lidocaine 1% PF 5 ML VIAL ONE (09:54)
[2018-10-16] MEDS ORDERED: PHENYLEPHRINE-NS 100 MCG/ML 10 ML SYRINGE ONE (09:54)
[2018-10-16] MEDS: Sodium Chloride 0.9% 1,000 ML IV SCH ×3 (10:31→22:31)
[2018-10-16 11:41] LABS: Hemoglobin 6.9 g/dL (14.0-18.0); Mean Corpuscular HGB CONC 31.7 g/dL (32.0-36.0); Mean Corpuscular Hemoglobin 30.7 pg (27.0-31.0); Mean Corpuscular Volume 96.8 fL (78.0-98.0); Mean Platelet Volume 8.4 fL (7.4-10.4); Platelet Count 74 thou/uL (130-400); RBC Distribution Width 14.8 % (11.5-14.5); Red Blood Cell (RBC) Count 2.25 mill/uL (4.70-6.10); White Blood Cell (WBC) Count 3.4 thou/uL (4.8-10.8)
[2018-10-16 12:39] LABS: Hemoglobin A1c 6.4 % (4.0-6.0)
[2018-10-16] MEDS ORDERED: Promethazine HCl 25 MG/ML VIAL IM PRN (18:10)
[2018-10-16] MEDS ORDERED: Ondansetron HCl/PF 4 MG/2 ML Vial IVP PRN (18:10)
[2018-10-16] MEDS ORDERED: Promethazine HCl 25 MG/ML VIAL SLOW IVP PRN (18:10)
--- NOTE | 2018-10-16 19:24 | CON ---
DATE OF CONSULTATION: 10/16/2018 REASON FOR CONSULTATION: Hematemesis. CONSULTING PHYSICIAN: Blanche Kee M.D. HISTORY OF PRESENT ILLNESS: The patient is a 58-year-old male with past medical history of tobacco abuse, alcohol dependence and alcoholic cirrhosis complicated by esophageal varices, presenti with complaints of hematemesis. The patient was admitted to the hospital in 05/2018 with complain ts of hematemesis associated with increased nausea and vomiting. He subsequently underwent EGD at at time which showed small nonbleeding esophageal varices as well as portal hypertensive gastropathy that was felt to be contributing to the hematemesis. He was subsequently placed on nonselective beta blockade and during his most recent clinic visit had been doing well while taking propranolol every day; however, yesterday he experienced the acute onset of nausea, vomiting, and diarrhea associated w ith the vomiting of minimal bouts of blood characterizes approximately 1-2 tablespoons only. He only experiences 2 episodes of emesis/hematemesis and denies any hematochezia or melena associated with t his. With the episodes of hematemesis, he did feel better after actually throwing up and since then has not had any further recurrences of the hematemesis. Of note, he did not take his propranolol yes terday with a missed dose with these symptoms occurring shortly thereafter during the day. He also e ndorsed increased diarrhea, having approximately 3-4 semisolid liquid stools over the last 24 hours, but no stated melena associated with that. Currently, he is asymptomatic and denies nausea, vomiting , fevers, chills, abdominal pain, hematemesis, melena, hematochezia, diarrhea, constipation, odynopha isabel, dysphagia or weight loss. REVIEW OF SYSTEMS: A 10-category review of systems was obtained with all responses negative except f or the pertinent positives as listed in the HPI. PAST MEDICAL HISTORY: As per HPI. PAST SURGICAL HISTORY: None. FAMILY HISTORY: Father diagnosed with unknown cancer at the age of 62. Uncle diagnosed with colon c ancer after the age of 60. SOCIAL HISTORY: Smokes approximately one half pack per day, but denies any alcohol use since his hos pitalization in 04/2018. Denies any illicit drug use. OUTPATIENT MEDICATIONS: Propranolol 10 mg b.i.d. as well as B12 supplement. ALLERGIES: No known drug allergies. PHYSICAL EXAMINATION: VITAL SIGNS: Temperature 98.1, pulse 82, blood pressure 107/59, respiratory rate 16, satting 97% on room air. GENERAL: The patient is lying in bed in no acute distress. He is alert and oriented x4. NECK: Supple. No JVD noted. No cervical or supraclavicular lymphadenopathy noted either. CARDIOVASCULAR: Regular rate and rhythm with no discernible murmurs, gallops or rubs. LUNGS: Clear to auscultation bilaterally with no discernible wheezes or rales. ABDOMEN: Normoactive bowel sounds, soft, nontender, nondistended. EXTREMITIES: No cyanosis, clubbing or edema. LABORATORY DATA: CBC with a white blood cell count of 3.4, hemoglobin 6.9, hematocrit 21.8, platelet s 74. INR 1.2. Chemistry with a sodium of 140, potassium 4.2, chloride 113, CO2 of 21, BUN 14, crea tinine 0.71, glucose 180, AST 35, ALT 32, alkaline phosphatase 122, total bilirubin 1.6. IMAGING DATA: No current GI imaging is available for review. ASSESSMENT AND PLAN: The patient is a 58-year-old male with past medical history of tobacco abuse, a lcohol dependence and alcoholic cirrhosis of the liver, complicated by small (grade I) esophageal delma ices, presenting with hematemesis. Hematemesis. The patient is presenting with acute onset of nausea, vomiting, and diarrhea with vomit ing approximately 2 tablespoons of bright red blood with immediate resolution of symptoms afterwards. Currently, doing well without any further complaints nor any further episodes of hematemesis since he has been admitted to the hospital. However, upon review of his records, his H and H has remained stable or decreased somewhat since his H and H drawn in 05/2018, which is worrisome for either a bone marrow process or chronic active gastrointestinal bleeding. At this time, given his small esophagea l varices and the amount of blood loss, it is unlikely to be an esophageal varix bleed, but rather th e portal hypertensive gastropathy seen on the prior upper endoscopy; however, this will need to be ru led out. RECOMMENDATIONS: 1. We would continue to trend H and H and transfuse as necessary to maintain an H and H of 06/15. 2. Continue to monitor clinically for signs of active gastrointestinal bleeding. 3. Continue n.p.o. status with plans for EGD later on tonight. 4. Further recommendations to follow upper endoscopy. We will continue to follow. Please call with any questions.
--- NOTE | 2018-10-16 19:41 | OP ---
DATE OF PROCEDURE: 10/16/2018 INDICATION FOR PROCEDURE: Hematemesis. PROCEDURE: Esophagogastroduodenoscopy with band ligation. DESCRIPTION OF PROCEDURE: After the risks and benefits of the procedure were explained to the patien t including risks of bleeding, infection, perforation, reactions to anesthesia, aspiration and/or nathalia n, informed consent was obtained. The patient was then taken to the endoscopy suite where he had pro pofol was administered via anesthesia support. Once adequate sedation was achieved, the standard gas troscope was introduced into the mouth with intubation of the esophagus, stomach and the proximal sma ll intestine upon withdrawal of the scope into the esophagus. There was noted large esophageal varic es with a fibrin clot that upon suctioning started to actively bleed, the gastroscope was removed and the patient underwent endotracheal tube intubation with transfer to general anesthesia at that time. Once the patient was intubated, the gastroscope was reintroduced in the mouth with band ligation de vice and band ligation x3 was then performed with good hemostasis achieved. At the end of the proced ure, there was no active bleeding seen, and the patient was transferred to PACU in satisfactory condi tion. EGD FINDINGS: Esophagus: Normal appearing mucosa was seen in the proximal and mid esophagus; however, a large (gra de 2) esophageal varices were seen in the distal esophagus with the presence of a small fibrin clot/n ipple along one of the varices themselves with suctioning of this area, it caused the varix to start oozing blood which then impeded visualization of the esophageal mucosa. The scope was then withdrawn from the patient, while the patient was undergoing endotracheal tube intubation. A band ligation de vice was attached to the gastroscope and reintroduced into the mouth after general anesthesia was per formed. Band ligation x3 was then performed along these large esophageal varices with good hemostasi s achieved and no bleeding seen at the end of the procedure. There was also a 4-5 cm hiatal hernia w ith the presence of esophageal red faviola sign along the distal aspect of the gastric folds. Band liga tion was also performed at this point, but included as part of the 3 bands placed. Stomach: Mild mucosal erythema was seen in the gastric cardia, fundus, body, greater curvature, antr um and incisura in a mosaic pattern, but did not exhibit any associated erosions, ulcerations, mass l esions or active/recent bleeding. Duodenum: Normal appearing mucosa was seen in both the duodenal bulb and second portion of the duode num. There was no evidence of erosions, ulcerations, mass lesions or active/recent bleeding. IMPRESSION: 1. Large (grade 2) esophageal varices in the distal esophagus with high risk stigmata of recent blee radha, now status post band ligation x3 with good hemostasis achieved. 2. Mild portal hypertensive gastropathy. 3. A 4-5 cm hiatal hernia. RECOMMENDATIONS: 1. We would continue to trend H and H and transfuse as necessary to maintain an H and H of 7/. 2. Continue to monitor clinically for signs of active gastrointestinal bleeding. 3. We would continue patient on octreotide drip for a total therapy of 72 hours along with PPI drip for 24 hours total therapy and then transfer to pantoprazole 40 mg b.i.d. 4. We would continue ceftriaxone for infection prophylaxis and the patient with gastrointestinal ble ed. 5. Patient will need a repeat upper endoscopy in approximately 3-4 weeks for possible repeat band li gation at that time. 6. We would continue propranolol 10 mg b.i.d. and titrate to target heart rate of 55-65 beats a emile te as much as patient can tolerate. We will continue to follow. Please call with any questions.
[2018-10-16] MEDS: cefTRIAXone\\ROCEPHIN 1 GM in Sodium Chloride 0.9% 100 ML IVPB SCH (20:17)
[2018-10-16 20:33] LABS: Hemoglobin 8.1 g/dL (14.0-18.0); Platelet Count 73 thou/uL (130-400)
[2018-10-16] MEDS: Octreotide Acetate 1,250 MCG in Sodium Chloride 0.9% 250 ML 250 ML IVPB SCH (22:32)
[2018-10-17 05:01] LABS: #Lymphocytes 1.2 thou/uL (1.20-3.40); #Monocytes 0.3 thou/uL (0.11-0.59); #Neutrophils 2.2 thou/uL (1.40-6.50); %Basophils 0.5 % (0.0-1.0); %Eosinophils 1.1 % (0.0-10.0); %Lymphocytes 31.6 % (21.0-51.0); %Monocytes 8.6 % (0.0-10.0); %Neutrophils 58.2 % (42.0-75.0); Hemoglobin 8.1 g/dL (14.0-18.0); Mean Corpuscular Hemoglobin 29.6 pg (27.0-31.0); Mean Corpuscular Volume 92.5 fL (78.0-98.0); Mean Platelet Volume 8.6 fL (7.4-10.4); Platelet Count 69 thou/uL (130-400); RBC Distribution Width 18.1 % (11.5-14.5); Red Blood Cell (RBC) Count 2.73 mill/uL (4.70-6.10); White Blood Cell (WBC) Count 3.8 thou/uL (4.8-10.8)
[2018-10-17 05:12] LABS: ALT (SGPT) 35 U/L (8-55); AST (SGOT) 53 U/L (5-34); Albumin 2.9 g/dL (3.5-5.0); Alkaline Phosphatase 85 U/L (40-150); Anion Gap 11 mmol/L (10-20); BUN (Urea Nitrogen) 12 mg/dL (8.4-25.7); Bilirubin, Total 1.2 mg/dL (0.2-1.2); Calc. Creatinine Clearance 102 mL/min (70-130); Calcium 7.7 mg/dL (7.8-10.44); Carbon Dioxide 20 mmol/L (22-29); Chloride 112 mmol/L (98-107); Estimated GFR-MDRD Greater than 90; Globulin 2.1 g/dL (2.4-3.5); Glucose 138 mg/dL (70-105); Potassium 3.7 mmol/L (3.5-5.1); Sodium 139 mmol/L (136-145)
[2018-10-17] MEDS: Sodium Chloride 0.9% 1,000 ML IV SCH ×2 (08:07→16:32)
[2018-10-17] MEDS: Propranolol 10 MG TAB PO SCH ×3 (08:08→20:46)
[2018-10-17] MEDS: Pantoprazole 40 MG VIAL IVP SCH ×2 (08:08→20:37)
--- NOTE | 2018-10-17 08:31 | PDOC.FM ---
- Subjective Subjective: 58 yo M s/p vericeal banding in esophagus. Resting comfortably this am. Complains of minimal pain. No vomiting. No blood in stool. No acute events over night. Denies any new symptoms - Objective MAR Reviewed: Yes Vital Signs & Weight: Vital Signs (12 hours) Temp Pulse Resp BP Pulse Ox 10/17/18 07:35 98.3 F 81 16 117/66 97 10/17/18 03:17 98.8 F 88 19 116/61 98 Weight Admit Weight 69.218 kg Weight 69.037 kg I&O: 10/16/18 10/17/18 10/18/18 06:59 06:59 06:59 Intake Total 1000 2670 Balance 1000 2670 Result Diagrams: 10/17/18 04:37 10/17/18 04:37 <Blake Hicks - Last Filed: 10/17/18 08:28> - Objective Vital Signs & Weight: Vital Signs (12 hours) Temp Pulse Resp BP Pulse Ox 10/17/18 07:35 98.3 F 81 16 117/66 97 10/17/18 03:17 98.8 F 88 19 116/61 98 Weight Admit Weight 69.218 kg Weight 69.037 kg I&O: 10/16/18 10/17/18 10/18/18 06:59 06:59 06:59 Intake Total 1000 2670 Balance 1000 2670 Result Diagrams: 10/17/18 04:37 10/17/18 04:37 <Quique Don - Last Filed: 10/17/18 11:29> Phys Exam - Physical Examination Constitutional: NAD HEENT: PERRLA, moist MMs Neck: no nodes Respiratory: clear to auscultation bilateral Cardiovascular: RRR, no significant murmur Gastrointestinal: soft, non-tender, no distention, positive bowel sounds Musculoskeletal: no edema Neurological: moves all 4 limbs Psychiatric: A&O x 3 Skin: no rash <Blake Hicks - Last Filed: 10/17/18 08:28> Dx/Plan (1) Acute blood loss anemia Code(s): D62 - ACUTE POSTHEMORRHAGIC ANEMIA Status: Acute (2) UGIB (upper gastrointestinal bleed) Code(s): K92.2 - GASTROINTESTINAL HEMORRHAGE, UNSPECIFIED Status: Resolved (3) Esophageal varices in alcoholic cirrhosis Code(s): K70.30 - ALCOHOLIC CIRRHOSIS OF LIVER WITHOUT ASCITES; I85.10 - SECONDARY ESOPHAGEAL VARICES WITHOUT BLEEDING Status: Chronic (4) Tobacco abuse Code(s): Z72.0 - TOBACCO USE Status: Chronic (5) Thrombocytopenia Code(s): D69.6 - THROMBOCYTOPENIA, UNSPECIFIED Status: Chronic (6) Alcohol abuse Code(s): F10.10 - ALCOHOL ABUSE, UNCOMPLICATED Status: Resolved - Plan Plan: Upper GI bleed: - Hgb 8.9 on admission. S/p EGD with banding - Continue IV octreotide & rocephin per GI recs. - Continue IV protonix Q12H. - No concerns for continued bleeding at this time. H&H stable3 - Appreciate GI recommendation Anemia 2/2 suspected variceal bleed: - continue PO iron h/o known esophageal varices: - Continue PO beta alan - GI consulted, appreciate recs. Alcoholic Cirrhosis: - patient no longer uses etoh HTN: - Controlled Hyperglycemia: - No accuchecks over 180, however glucose is persistently elevated. - A1c is 6.4. Patient is at high risk for developing DM. - Consider starting metformin here, would recommend further work up and management in outpt setting Dispo: Stable. Advance diet per GI recommendations and continue to monitor for re bleeding. <Blake Hicks - Last Filed: 10/17/18 08:28> Attending Addendum - Attending Addendum Date/Time: 10/17/18 1128 I personally evaluated the patient and discussed the management with Dr. Hicks. I agree with the History, Examination, Assessment and Plan documented above with any addition or exceptions noted below. Doing well s/p variceal banding. H/H stable. Continue Octreotide, Protonix, Rocephin and titrate Inderal. Await further GI recs. <Quique Don - Last Filed: 10/17/18 11:29>
[2018-10-17] MEDS: Ferrous Sulfate 325 MG TAB PO SCH ×2 (09:53→16:31)
--- NOTE | 2018-10-17 13:27 | PRG ---
DATE OF SERVICE: 10/17/2018 REASON FOR CONSULTATION: Cirrhosis, hematemesis. SUBJECTIVE: The patient did well overnight with no acute events or problems. He did state that he h ad some mild tightness in his chest at the substernal region yesterday, but this has resolved upon wa bob today. He currently denies any nausea, vomiting, fevers, chills, chest pain, abdominal pain, he matemesis, hematochezia, or melena. OBJECTIVE: VITAL SIGNS: Temperature 98.4, pulse 71, blood pressure 112/67, respiratory rate 18, satting 96% on room air. GENERAL: The patient was lying in bed in no acute distress. He is alert and oriented x4. CARDIOVASCULAR: Regular rate and rhythm. LUNGS: Clear to auscultation bilaterally. ABDOMEN: Normoactive bowel sounds, soft, nontender, nondistended. EXTREMITIES: No cyanosis, clubbing or edema. LABORATORY DATA: CBC with a white blood cell count of 3.8, hemoglobin 8.1, hematocrit 25.2, platelet s 69. Chemistry with a sodium of 139, potassium 3.7, chloride 112, CO2 of 20, BUN 12, creatinine 0.8 7, glucose 138, AST 53, ALT 35, alkaline phosphatase 85, total bilirubin 1.2. IMAGING DATA: EGD performed on 10/16/2018 showed the presence of large (grade 2) esophageal varices with a fibrin clot overlying one of these esophageal varices. These were successfully intervened upo n with band ligation x3 with good hemostasis achieved. Otherwise, there was mild portal hypertensive gastropathy seen within the entire stomach. No other further bleeding sources were seen. ASSESSMENT AND PLAN: The patient is a 58-year-old male with past medical history of tobacco abuse, a lcohol dependence and alcoholic cirrhosis of the liver, complicated by esophageal varices, presenting with a probable variceal bleed. Hematemesis/variceal bleeding: The patient is presenting with acute onset of nausea, vomiting, and d iarrhea that occurred approximately 48 hours ago with vomitus containing approximately 2 tablespoons of bright red blood and immediate resolution of the nausea and vomiting afterwards. He subsequently underwent EGD on 10/16/2018 which showed larger esophageal varices which showed a small fibrin clot a long one of these varices being a likely source of his recent hematemesis. During the course of the procedure itself, he did exhibit some oozing of blood that interfered with visualization, but was suc cessfully intervened upon with band ligation x3. Currently, the patient is doing well with no acute events or problems overnight and a stable H&H, making further bleeding from this site highly unlikely . RECOMMENDATIONS: 1. We would continue to trend H&H and transfuse as necessary to maintain an H&H of 7/21. 2. Continue to monitor clinically for signs of active gastrointestinal bleeding. 3. We would advance the patient's diet as tolerated today. 4. We would continue octreotide for at least another 24 hours given his recent esophageal varix blee ding. 5. Continue proton-pump inhibitor and antibiotics in light of variceal bleeding and infection prophy laxis in a cirrhotic individual. 6. We would continue propranolol 20 mg twice daily with titration to target heart rate of 55-65 beat s per minute. We will continue to follow. Please call with any questions.
[2018-10-17] MEDS: cefTRIAXone\\ROCEPHIN 1 GM in Sodium Chloride 0.9% 100 ML IVPB SCH (20:37)
[2018-10-17] MEDS: Octreotide Acetate 1,250 MCG in Sodium Chloride 0.9% 250 ML 250 ML IVPB SCH (23:03)
[2018-10-18] MEDS: Sodium Chloride 0.9% 1,000 ML IV SCH ×3 (00:40→20:55)
--- NOTE | 2018-10-18 08:34 | PDOC.FM ---
- Subjective Subjective: Patient seen resting comfortably in bed. Denies abd pain or n/v. No bleeding or melanotic stool. Denies new symptoms or concerns. No acute events over night. Tolerated liquid diet yesterday - Objective MAR Reviewed: Yes Vital Signs & Weight: Vital Signs (12 hours) Temp Pulse Resp BP Pulse Ox 10/18/18 03:35 98.7 F 73 20 107/66 98 Weight Admit Weight 69.218 kg Weight 69.031 kg I&O: 10/17/18 10/18/18 10/19/18 06:59 06:59 06:59 Intake Total 2670 3545 Output Total 2700 Balance 2670 845 Result Diagrams: 10/17/18 04:37 10/17/18 04:37 <Blake Hicks - Last Filed: 10/18/18 08:32> - Objective Vital Signs & Weight: Vital Signs (12 hours) Temp Pulse Resp BP Pulse Ox 10/18/18 08:00 98.4 F 68 16 113/67 96 10/18/18 03:35 98.7 F 73 20 107/66 98 Weight Admit Weight 69.218 kg Weight 69.031 kg I&O: 10/17/18 10/18/18 10/19/18 06:59 06:59 06:59 Intake Total 2670 3545 Output Total 2700 Balance 2670 845 Result Diagrams: 10/17/18 04:37 10/17/18 04:37 <Quique Don - Last Filed: 10/18/18 10:55> Phys Exam - Physical Examination Constitutional: NAD HEENT: moist MMs Neck: no JVD Respiratory: clear to auscultation bilateral Cardiovascular: RRR, no significant murmur Gastrointestinal: non-tender, no distention Musculoskeletal: pulses present Neurological: moves all 4 limbs Psychiatric: normal affect, A&O x 3 Skin: no rash <Blake Hicks - Last Filed: 10/18/18 08:32> Dx/Plan (1) Acute blood loss anemia Code(s): D62 - ACUTE POSTHEMORRHAGIC ANEMIA Status: Acute (2) UGIB (upper gastrointestinal bleed) Code(s): K92.2 - GASTROINTESTINAL HEMORRHAGE, UNSPECIFIED Status: Resolved (3) Esophageal varices in alcoholic cirrhosis Code(s): K70.30 - ALCOHOLIC CIRRHOSIS OF LIVER WITHOUT ASCITES; I85.10 - SECONDARY ESOPHAGEAL VARICES WITHOUT BLEEDING Status: Chronic (4) Tobacco abuse Code(s): Z72.0 - TOBACCO USE Status: Chronic (5) Thrombocytopenia Code(s): D69.6 - THROMBOCYTOPENIA, UNSPECIFIED Status: Chronic (6) Alcohol abuse Code(s): F10.10 - ALCOHOL ABUSE, UNCOMPLICATED Status: Resolved - Plan Plan: Upper GI bleed, resolved - Continue IV octreotide & rocephin per GI recs. Will dc tomorrow - Continue IV protonix Q12H. - No concerns for continued bleeding at this time. H&H stable3 - Appreciate GI recommendation - Advance diet as tolerated Anemia 2/2 suspected variceal bleed: - continue PO iron h/o known esophageal varices: - Continue PO beta alan - GI consulted, appreciate recs. Alcoholic Cirrhosis: - patient no longer uses etoh HTN: - Controlled Hyperglycemia: - No accuchecks over 180, however glucose is persistently elevated. - A1c is 6.4. Patient is at high risk for developing DM. - Consider starting metformin here, would recommend further work up and management in outpt setting Thrombocytopenia - related to cirrhosis, stable Dispo: Stable. Advance diet per GI recommendations and continue to monitor for re bleeding. <Blake Hicks - Last Filed: 10/18/18 08:32> Attending Addendum - Attending Addendum Date/Time: 10/18/18 1054 I personally evaluated the patient and discussed the management with Dr. Hicks. I agree with the History, Examination, Assessment and Plan documented above with any addition or exceptions noted below. Patient doing well, tolerating diet normally. Will advance. Await further GI recs this afternoon but hopeful discharge today or tomorrow depending clinical course. <Quique Don - Last Filed: 10/18/18 10:55>
[2018-10-18] MEDS: Ferrous Sulfate 325 MG TAB PO SCH ×2 (09:37→17:37)
[2018-10-18] MEDS: Pantoprazole 40 MG VIAL IVP SCH ×2 (09:38→20:55)
[2018-10-18] MEDS: Propranolol 10 MG TAB PO SCH ×3 (10:40→20:55)
[2018-10-18 11:50] VITALS: BMI 26.1
[2018-10-18 13:00] LABS: Hemoglobin 8.3 g/dL (14.0-18.0); Platelet Count 81 thou/uL (130-400)
--- NOTE | 2018-10-18 17:47 | PRG ---
DATE OF SERVICE: 10/18/2018 REASON FOR CONSULTATION: Cirrhosis, hematemesis. SUBJECTIVE: The patient did well overnight and today with no acute events or problems. He currently denies any symptoms including nausea, vomiting, fevers, chills, GI bleeding, diarrhea, constipation, or abdominal pain. He has been able to get up and walk to the bathroom today with no problem with t he increased dose of propranolol, but has not been ambulating otherwise. He did tolerate the clear l iquid and full liquid diet well with his diet being advanced as tolerated at the current time. OBJECTIVE: VITAL SIGNS: Temperature 98.4, pulse 60, blood pressure 121/64, respiratory rate 16, saturating 96% on room air. GENERAL: The patient was lying in bed in no acute distress. Alert and oriented x4. CARDIOVASCULAR: Regular rate and rhythm. LUNGS: Clear to auscultation bilaterally. ABDOMEN: Normoactive bowel sounds. Soft, nontender, nondistended. No shifting dullness. EXTREMITIES: No cyanosis, clubbing, or edema. LABORATORY DATA: No current labs are available for review today. IMAGING DATA: No current GI imaging is available for review today. ASSESSMENT AND PLAN: The patient is a 58-year-old male with past medical history of tobacco abuse, a lcohol dependence, and alcoholic cirrhosis of the liver, complicated by esophageal varices, presentin g with probable variceal bleed. Hematemesis, variceal bleeding. The patient presented with acute onset of nausea, vomiting, and diar renae that occurred approximately 48 hours prior to admission with his vomitus containing approximatel y 2 tablespoons of bright red blood. He subsequently underwent EGD on 10/16/2018, which showed large r esophageal varices as well as a small fibrin clot, while one of the varices being the likely source of his recent hematemesis. This was successfully intervened upon with band ligation x3. Since inte rvention, the patient has been doing well with no acute events or problems since then. He had been i ncreased on his propranolol to 20 mg b.i.d. and has been tolerating this dose well. RECOMMENDATIONS: 1. We would continue to trend H&H and transfuse as necessary to maintain an H&H of 06/15. 2. Continue to monitor clinically for signs of active gastrointestinal bleeding. 3. We would continue to advance the patient's diet today and assess for tolerance. 4. The octreotide could be discontinued today in favor of possible discharge. 5. We would continue proton pump inhibitor and antibiotics for approximately 2 more days for varicea l bleeding and infection prophylaxis in a cirrhotic individual (would continue ciprofloxacin 500 b.i. d. for the next 2 days). 6. We would continue propranolol 20 mg twice daily with titration to target heart rate of 55-65 beat s per minute. At this point, the patient is doing well with no events or problems post-intervention and could be co nsidered a candidate for discharge. We will sign off at this time. Please call with any additional questions.
[2018-10-18] MEDS: cefTRIAXone\\ROCEPHIN 1 GM in Sodium Chloride 0.9% 100 ML IVPB SCH (20:54)
--- NOTE | 2018-10-19 07:08 | PDOC.FM ---
- Subjective Subjective: Patient doing well. No significant overnight events. Patient tolerating PO. He is hungry and ordered breakfast this AM. No BM since admission, but patient has not been eating until last night. Denies any further episodes of emesis. - Objective MAR Reviewed: Yes Vital Signs & Weight: Vital Signs (12 hours) Temp Pulse Resp BP Pulse Ox 10/19/18 04:00 98.3 F 71 16 105/53 L 97 10/18/18 20:00 98.7 F 67 14 113/64 94 L Weight Admit Weight 69.218 kg Weight 69.031 kg I&O: 10/18/18 10/19/18 10/20/18 06:59 06:59 06:59 Intake Total 3545 2340 Output Total 2700 Balance 845 2340 Result Diagrams: 10/18/18 12:46 10/17/18 04:37 EKG Reviewed by me: No Radiology Reviewed by me: Yes <Vianney Somers - Last Filed: 10/19/18 10:34> - Objective Vital Signs & Weight: Vital Signs (12 hours) Temp Pulse Resp BP Pulse Ox 10/19/18 08:03 98.1 F 64 16 112/66 95 10/19/18 04:00 98.3 F 71 16 105/53 L 97 Weight Admit Weight 69.218 kg Weight 67.857 kg I&O: 10/18/18 10/19/18 10/20/18 06:59 06:59 06:59 Intake Total 3545 3819 Output Total 2700 Balance 845 3819 Result Diagrams: 10/18/18 12:46 10/17/18 04:37 <Quique Don - Last Filed: 10/19/18 11:15> Phys Exam - Physical Examination Constitutional: NAD HEENT: moist MMs Neck: supple Respiratory: clear to auscultation bilateral Cardiovascular: RRR Gastrointestinal: soft, non-tender, no distention, positive bowel sounds Musculoskeletal: no edema Neurological: non-focal Psychiatric: normal affect, A&O x 3 Skin: no rash, cap refill <2 seconds <Vianney Somers - Last Filed: 10/19/18 10:34> Dx/Plan (1) Acute blood loss anemia Code(s): D62 - ACUTE POSTHEMORRHAGIC ANEMIA Status: Acute (2) UGIB (upper gastrointestinal bleed) Code(s): K92.2 - GASTROINTESTINAL HEMORRHAGE, UNSPECIFIED Status: Resolved (3) Esophageal varices in alcoholic cirrhosis Code(s): K70.30 - ALCOHOLIC CIRRHOSIS OF LIVER WITHOUT ASCITES; I85.10 - SECONDARY ESOPHAGEAL VARICES WITHOUT BLEEDING Status: Chronic (4) Tobacco abuse Code(s): Z72.0 - TOBACCO USE Status: Chronic (5) Thrombocytopenia Code(s): D69.6 - THROMBOCYTOPENIA, UNSPECIFIED Status: Chronic (6) Alcohol abuse Code(s): F10.10 - ALCOHOL ABUSE, UNCOMPLICATED Status: Resolved - Plan Plan: 58 year old male presents with known alcoholic cirrhosis presents with hematemesis Upper GI bleed 2/2 esophageal varices, resolved - D/c'd octreotide - 2 more days of antibiotics per GI recs - Continue IV protonix Q12H. - No concerns for continued bleeding at this time. H&H stable. - Appreciate GI recommendation - Tolerating PO Anemia 2/2 suspected variceal bleed: - continue PO iron as outpatient. Will prescribe stool softener, as well. - Banded in EGD h/o known esophageal varices: - Continue PO beta alan. - GI consulted, appreciate recs. Alcoholic Cirrhosis: - patient no longer uses etoh HTN: - Controlled Hyperglycemia: - No accuchecks over 180, however glucose is persistently elevated. - A1c is 6.4. Patient is at high risk for developing DM. - Consider starting metformin here, would recommend further work up and management in outpt setting Thrombocytopenia - related to cirrhosis, stable Dispo: Stable. Plan for d/c home today with above recommendations. <Vianney Somers - Last Filed: 10/19/18 10:34> Attending Addendum - Attending Addendum Date/Time: 10/19/18 1115 I personally evaluated the patient and discussed the management with Dr. Somers. I agree with the History, Examination, Assessment and Plan documented above with any addition or exceptions noted below. Patient doing well and tolerating diet well. Will be discharged home today. <Quique Don - Last Filed: 10/19/18 11:15>
[2018-10-19] MEDS: Sodium Chloride 0.9% 1,000 ML IV SCH (07:10)
[2018-10-19] MEDS: Pantoprazole 40 MG VIAL IVP SCH (08:51)
[2018-10-19] MEDS: Ferrous Sulfate 325 MG TAB PO SCH (08:51)
[2018-10-19] MEDS: Propranolol 10 MG TAB PO SCH (08:52)
[2018-10-19 11:36] VITALS: BP 109/64; TEMP 98.5
--- NOTE | 2018-10-19 14:43 | DIS-2 ---
DATE OF ADMISSION: 10/15/2018 DATE OF DISCHARGE: 10/19/2018 ADMITTING ATTENDING: Blanche Kee M.D. DISCHARGE ATTENDING: Quique Don M.D. RESIDENT: Vianney Somers D.O. CONSULTATION: Dr. Torey Jansen, Gastroenterology. PROCEDURES: EGD with band ligation, large (grade 2) esophageal varices in distal esophagus with high risk stigmata of recent bleeding, now status post band ligation x3 with good hemostasis achieved. T here is also mild portal hypertensive gastropathy. A 4-5 cm hiatal hernia was also noted on EGD. PRIMARY DIAGNOSES: 1. Acute symptomatic anemia secondary to upper gastrointestinal bleed. 2. Esophageal varices status post band ligation. SECONDARY DIAGNOSES: 1. Cirrhosis secondary to alcohol abuse. 2. Hypertension. 3. Hyperglycemia without diagnosis of diabetes. 4. Thrombocytopenia secondary to liver cirrhosis. DISCHARGE MEDICATIONS: 1. Acetaminophen 500 mg p.o. q.4 hours p.r.n. 2. Ciprofloxacin 500 mg p.o. q.12 h. x2 days. 3. Ferrous sulfate 325 mg p.o. b.i.d. 4. Pantoprazole 40 mg p.o. b.i.d. 5. Propranolol 20 mg p.o. b.i.d. HISTORY OF PRESENT ILLNESS AND HOSPITAL COURSE: This is a 58-year-old gentleman with a past medical history significant for alcoholic cirrhosis with known esophageal varices, presented to the ED with hemoptysis that started around 4:00 p.m. on the day of admission. He had several episodes of hemoptysis. He did state that it was not large enough for him to notice but it did worry him due to his past history of esophageal bleeds. The patient denies any sore throat, abdominal pain, fever or chills. Patient did endorse some diarrhea, but stated there was no rectal blood or dark stool. The patient was given 1 liter of normal saline, 40 mg IV Protonix, 1 gram Rocephin, and 250 mcg of IV oc treotide. He was also started on normal saline at 125 mL per hour and given IV octreotide 50 mcg per hour per GI recommendations. Gastroenterology was consulted. Dr. Jansen did perform EGD with band ligation of 3 large esophageal v arices. Good hemostasis was achieved. After band ligation, octreotide was discontinued. The patien t was transitioned to clear liquid diet and tolerated it well. He will need to continue his beta blo cker daily with a goal of 55-60 beats per minute. Currently, the patient is on 20 mg of propranolol b.i.d. and his pulse is in 70s range. He would benefit from further titration as an outpatient. The patient had no further episodes of hematemesis during this hospitalization. He states that he felt well and has been ready for discharge home. Per GI recommendations, patient is to continue an additi onal 2 days of ciprofloxacin to complete a course of antibiotics for these esophageal bleeds. Jeyson knox will need to be on Protonix b.i.d. indefinitely. The patient did require 1 unit of packed red blood cells. His hemoglobin and hematocrit remained sta ble around 8.3 and 24.7 post-transfusion and ligation of esophageal varices. The patient also remain ed asymptomatic and his vital signs remained stable. Patient was noted to have hyperglycemia on admission. Hemoglobin A1c was obtained and noted to be 6. 4%. The patient would potentially benefit from being started on metformin as he has high risk for de veloping overt diabetes mellitus. This was discussed with the patient and it would be recommended th at this be worked up further as an outpatient. DISPOSITION: Stable. DISCHARGE INSTRUCTIONS: 1. Location: Home. 2. Activity: No restrictions. 3. Diet: Consistent carbohydrate diet. 4. Followup: The patient to follow up with his primary care physician within 7 days of discharge fr the hospital.
== END 2018-10-19 13:41 | disposition home or self-care (01) | DRG 811 ==
LOC: ERS 18:23 → 2NO 21:58
PROVIDERS: ADMIT Family Medicine; ATTEND Family Medicine
PROC: 06L38CZ Occlusion of Esophageal Vein with Extraluminal Device, Via Natural or Artificial Opening Endoscopic (ICD-10-PCS; principal; 2018-10-16)
PROC: 30233N1 Transfusion of Nonautologous Red Blood Cells into Peripheral Vein, Percutaneous Approach (ICD-10-PCS; 2018-10-16)
DX: D62 Acute posthemorrhagic anemia (principal); I85.11 Secondary esophageal varices with bleeding; K76.6 Portal hypertension; K70.30 Alcoholic cirrhosis of liver without ascites; I10 Essential (primary) hypertension; K44.9 Diaphragmatic hernia without obstruction or gangrene; K31.89 Other diseases of stomach and duodenum; F10.20 Alcohol dependence, uncomplicated; F17.210 Nicotine dependence, cigarettes, uncomplicated; R73.9 Hyperglycemia, unspecified; D69.59 Other secondary thrombocytopenia
CPT/HCPCS: 36415; 36430; 80048; 80053; 80307; 83036; 85014; 85018; 85025; 85027; 85049; 85610; 85730; 86850; 86900; 86901; 93005; 96361; 96365; 96367; 96376; C9113; J0696; J2001; J2354; J2405; J2704; J7050; P9016

== ENCOUNTER 2019-01-13 09:57 | Day surgery (SDC) | payer OTHER ==
[2019-01-10 08:33] VITALS: BMI 25.9
[2019-01-13] MEDS ORDERED: PROPOFOL 200 MG/20 ML VIAL ONE (15:16)
[2019-01-13] MEDS ORDERED: Lidocaine 1% PF 5 ML VIAL ONE (15:16)
--- NOTE | 2019-01-13 15:19 | OP ---
DATE OF PROCEDURE: 01/13/2019 PROCEDURE PERFORMED: Esophagogastroduodenoscopy with band ligation. INDICATION FOR PROCEDURE: History of bleeding esophageal varices. DESCRIPTION OF PROCEDURE: After the risks and benefits of the procedure were explained to the patient including risks of bleeding, infection, perforation, reactions to anesthesia, aspiration and/or pain, informed consent was obtained. The patient was then taken to the endoscopy suite, where deep sedation was administered via propofol and anesthesia support. Once adequate sedation was achieved, the standard gastroscope was introduced into the mouth with intubation of the esophagus, stomach, and the proximal small intestine with the findings listed below. During the esophageal phase of the examination, red faviola sign and small to medium-sized esophageal varices were seen in the distal esophagus. Given his recent history of variceal bleeding, band ligation x4 was performed. The patient tolerated the procedure well with no immediate perioperative complications. Upon conclusion of the procedure, all equipment was removed from the patient and he was transferred to Day Stay in satisfactory condition. FINDINGS: Esophagus: Normal-appearing mucosa was seen in both the proximal and mid esophagus; however, in the distal esophagus, small esophageal varices were seen that did not flatten completely upon insufflation (grade 2) and associated with these esophageal varices were the presence of red faviola sign overlying the varices indicative of a higher risk of repeat bleeding. Band ligation was then performed x4 with good hemostasis achieved and mild oozing of blood from one particular band at the conclusion of the procedure. There was no evidence of erosions, ulcerations, or mass lesions during this portion of the procedure. Stomach: Erythematous mucosa was seen diffusely throughout the entire stomach and resembled a more mosaic type appearance consistent with portal hypertensive gastropathy. This was present in the cardia, fundus, body, greater curvature, antrum, and incisura. There were no associated erosions, ulcerations, mass, lesions, or active/recent bleeding. Duodenum: A small erosion measuring approximately 5 mm in diameter was seen in the duodenal bulb along the anterior wall, but did not exhibit any signs of ulceration, but instead looked like it may have been a healing ulceration. Otherwise, normal-appearing mucosa was seen in the remainder of the bulb and second portion of the duodenum. There was no evidence of ulcerations, mass, lesions, or active/recent bleeding. IMPRESSION: 1. [id number] portal hypertensive gastropathy. 2. Duodenal erosion without any evidence of ulceration or bleeding. 3. Small (grade 2) sized esophageal varices seen in the distal esophagus and associated with red faviola sign, now status post band ligation x4. RECOMMENDATIONS: 1. Would continue nadolol 20 mg b.i.d. with target heart rate between 55 to 65 beats per minute. 2. Would repeat the upper endoscopy in 4 weeks for repeat evaluation of the distal esophagus and possible repeat band ligation performed at that time if the varices have not been eradicated. 3. We will continue to monitor clinically for signs of active GI bleeding. 4. Follow up in the GI Clinic as scheduled. Job ID: [id number]
== END 2019-01-13 15:18 | disposition home or self-care (01) ==
LOC: SDC 09:57
PROVIDERS: ATTEND Internal Medicine
PROC: 0W3P8ZZ Control Bleeding in Gastrointestinal Tract, Via Natural or Artificial Opening Endoscopic (ICD-10-PCS; principal; 2019-01-13)
DX: K76.6 Portal hypertension (principal); K31.89 Other diseases of stomach and duodenum; I85.11 Secondary esophageal varices with bleeding; K26.9 Duodenal ulcer, unspecified as acute or chronic, without hemorrhage or perforation; K70.30 Alcoholic cirrhosis of liver without ascites; Z87.891 Personal history of nicotine dependence; Z79.899 Other long term (current) drug therapy
CPT/HCPCS: J2001; J2704

== ENCOUNTER 2019-02-21 07:02 | Day surgery (SDC) | payer OTHER ==
[2019-02-21] MEDS ORDERED: PROPOFOL 200 MG/20 ML VIAL ONE (10:30)
[2019-02-21] MEDS ORDERED: Lidocaine 1% PF 5 ML VIAL ONE (10:30)
[2019-02-21] MEDS ORDERED: ePHEDrine 50 MG/ML VIAL ONE (10:30)
--- NOTE | 2019-02-21 13:29 | OP ---
DATE OF PROCEDURE: 02/21/2019 PROCEDURE PERFORMED: Esophagogastroduodenoscopy with band ligation. INDICATION FOR PROCEDURE: Cirrhosis with esophageal varices (history of bleeding in the past). DESCRIPTION OF PROCEDURE: After the risks and benefits of the procedure were explained to the patient including risks of bleeding, infection, perforation, reactions to anesthesia, aspiration and/or pain, informed consent was obtained. The patient was then taken to the endoscopy suite, where deep sedation was administered via propofol and anesthesia support. Once adequate sedation was achieved, the standard gastroscope was introduced into the mouth with intubation of the esophagus, stomach, and the proximal small intestine with the findings listed below. With the evaluation of esophageal varices in the distal esophagus, band ligation was performed x2. Upon completion of the procedure, all equipment was removed from the patient and he was transferred to Day Stay in satisfactory condition. FINDINGS: Esophagus: Normal-appearing mucosa was seen in both the proximal and mid esophagus; however, two grade 2/3 esophageal varices were seen in the distal esophagus, one of which did exhibit red faviola sign well. Given his history of varices and bleeding from these varices, band ligation was then performed, approximately two bands were placed with good hemostasis achieved and decompression of the proximal varices. No other abnormalities were seen. There was no evidence of erosions, ulcerations, mass, lesions, or active/recent bleeding. Stomach: Mild mucosal erythema was seen throughout the entire stomach in a mosaic type pattern consistent with previously described portal hypertensive gastropathy. Otherwise, there were no other abnormalities with no evidence of erosions, ulcerations, mass, lesions, or active/recent bleeding. Duodenum: Normal-appearing mucosa was seen in both the duodenal bulb and second portion of the duodenum. There was no evidence of erosions, ulcerations, mass, lesions, or active/recent bleeding. IMPRESSION: 1. Grade 2/3 distal esophageal varices, status post band ligation x2. 2. Mild portal hypertensive gastropathy. RECOMMENDATIONS: 1. Given the presence of varices on examination today, would repeat the EGD in approximately 3 to 4 weeks for repeat evaluation and continued band ligation to eradication of these esophageal varices (if needed). 2. Would continue propranolol at the current dosing. 3. Would continue low-sodium diet. 4. We will follow up in the GI Clinic after the repeat EGD. Job ID: [id number]
== END 2019-02-21 12:10 | disposition home or self-care (01) ==
LOC: SDC 07:02
PROVIDERS: ATTEND Internal Medicine
PROC: 06L34CZ Occlusion of Esophageal Vein with Extraluminal Device, Percutaneous Endoscopic Approach (ICD-10-PCS; principal; 2019-02-21)
DX: K70.30 Alcoholic cirrhosis of liver without ascites (principal); I85.10 Secondary esophageal varices without bleeding; K76.6 Portal hypertension; K31.89 Other diseases of stomach and duodenum; Z87.891 Personal history of nicotine dependence; Z79.899 Other long term (current) drug therapy

== ENCOUNTER 2019-03-24 10:20 | Day surgery (SDC) | payer OTHER ==
[2019-03-21 14:14] VITALS: BMI 25.7
[2019-03-24] MEDS ORDERED: Lidocaine 1% PF 5 ML VIAL ONE (16:54)
[2019-03-24] MEDS ORDERED: PROPOFOL 200 MG/20 ML VIAL ONE (16:54)
--- NOTE | 2019-03-24 20:03 | OP ---
DATE OF PROCEDURE: 03/24/2019 PROCEDURE PERFORMED: Esophagogastroduodenoscopy (diagnostic). INDICATION FOR PROCEDURE: Cirrhosis with a history of bleeding esophageal varices status post band ligation in the past. DESCRIPTION OF PROCEDURE: After the risks and benefits of the procedure were explained to the patient including risks of bleeding, infection, perforation, reactions to anesthesia, aspiration and/or pain, informed consent was obtained. The patient was then taken to the endoscopy suite, where deep sedation was administered via propofol and anesthesia support. Once adequate sedation was achieved, the standard gastroscope was introduced into the mouth with intubation of the esophagus, stomach, and the proximal small intestines with the findings listed below. The patient tolerated the procedure well with no immediate perioperative complications. Upon completion of the procedure, all equipment was removed from the patient. The patient was transferred to Day Stay in satisfactory condition. FINDINGS: Esophagus, normal-appearing mucosa was seen in the proximal and mid esophagus. Small esophageal varices (grade 1) were seen in the distal esophagus that flattened almost completely. Upon insufflation; however, at the GE junction, there was a 3 to 4 mm clean based ulceration with no high-risk stigmata bleeding consistent with prior band ligation site. Otherwise, there was no evidence of erosions, ulcerations, mass, lesions, or active/recent bleeding. No intervention was taken on the small esophageal varices. Given no specific targets for band ligation and good response to treatment while on nonselective beta alan. Stomach, increased mucosal erythema seen throughout the entire stomach and exhibited a mosaic type pattern within the gastric cardia, fundus, body, greater curvature, antrum, and incisura. There was no associated erosions, ulcerations, mass, lesions, or active/recent bleeding. Mildly increased mucosal erythema/normal mucosa was seen in the gastric antrum. Otherwise, there was no evidence of erosions, ulcerations, mass, lesions, or active/recent bleeding. Duodenum, normal-appearing mucosa was seen in both the duodenal bulb and second portion of the duodenum. There was no evidence of erosions, ulcerations, mass, lesions, or active/recent bleeding. IMPRESSION: 1. Small distal esophageal varices (grade 1) with ulceration of the gastroesophageal junction consistent with prior band ligation site. No evidence of active/recent bleeding. 2. Moderate portal hypertensive gastropathy. 3. No evidence of gastric varices on gastric retroflexion. RECOMMENDATIONS: 1. Would have the patient follow up in the GI Clinic in 4 to 6 weeks for continued management of cirrhosis. 2. Would increase the propranolol back up to 20 mg twice daily given the moderate portal hypertensive gastropathy and history of esophageal varices in the past with heart rate not at goal today. 3. Further cirrhosis maintenance to be determined at the outpatient clinic visit. Job ID: [id number]
== END 2019-03-24 14:45 | disposition home or self-care (01) ==
LOC: SDC 10:20
PROVIDERS: ATTEND Internal Medicine
PROC: 0DJ08ZZ Inspection of Upper Intestinal Tract, Via Natural or Artificial Opening Endoscopic (ICD-10-PCS; principal; 2019-03-24)
DX: K74.60 Unspecified cirrhosis of liver (principal); I85.10 Secondary esophageal varices without bleeding; Z98.890 Other specified postprocedural states
CPT/HCPCS: J2001; J2704

== ENCOUNTER 2019-05-19 06:43 | Outpatient (CLI) | payer OTHER ==
--- NOTE | 2019-05-19 07:44 | ULT ---
Exam: Right upper quadrant ultrasound: HISTORY: Cirrhosis COMPARISON: 06/24/2018 FINDINGS: Visualized liver:Coarse liver echogenicity with slight nodularity of the renal margin. No significant change from prior study. Gallbladder:No evidence of gallstones. Minimal pericholecystic fluid. Common bile duct:0.7 cm The visualized pancreas and right kidney are unremarkable. No evidence for abscess or abnormal fluid collection in the right upper quadrant. IMPRESSION: Coarse liver echogenicity concerning for the possibility of cirrhosis. No evidence of gallstones. Mar dence for minimal pericholecystic fluid.
== END 2019-05-19 06:44 | disposition home or self-care (01) ==
LOC: BICULT 06:43
PROVIDERS: ATTEND Physician Assistant Medical
DX: K70.30 Alcoholic cirrhosis of liver without ascites (principal); I85.11 Secondary esophageal varices with bleeding; R93.2 Abnormal findings on diagnostic imaging of liver and biliary tract
CPT/HCPCS: 76705

== ENCOUNTER 2019-11-04 16:01 | Inpatient (IN) | payer OTHER ==
[~2019-11-04 16:01] MED LIST: Iopamidol-370 76% 500 ML 1 ML ONE
[2019-11-04 16:36] LABS: #Eosinphils 0.1 thou/uL (0.0-0.7); #Lymphocytes 2.3 thou/uL (1.20-3.40); #Monocytes 0.5 thou/uL (0.11-0.59); %Basophils 0.7 % (0.0-1.0); %Eosinophils 0.9 % (0.0-10.0); %Lymphocytes 32.9 % (21.0-51.0); %Monocytes 7.7 % (0.0-10.0); %Neutrophils 57.8 % (42.0-75.0); Hemoglobin 12.8 g/dL (14.0-18.0); Mean Corpuscular HGB CONC 34.1 g/dL (32.0-36.0); Mean Corpuscular Hemoglobin 35.2 pg (27.0-31.0); Mean Platelet Volume 8.5 fL (7.4-10.4); Platelet Count 88 thou/uL (130-400); RBC Distribution Width 12.6 % (11.5-14.5); Red Blood Cell (RBC) Count 3.64 mill/uL (4.70-6.10); White Blood Cell (WBC) Count 6.9 thou/uL (4.8-10.8)
[2019-11-04 16:54] LABS: ALT (SGPT) 35 U/L (8-55); AST (SGOT) 32 U/L (5-34); Albumin 3.9 g/dL (3.5-5.0); Alkaline Phosphatase 121 U/L (40-110); Anion Gap 8 mmol/L (10-20); BUN (Urea Nitrogen) 19 mg/dL (8.4-25.7); Bilirubin, Total 1.3 mg/dL (0.2-1.2); CK (CPK) 100 U/L (30-200); Calc. Creatinine Clearance 0 mL/min (70-130); Calcium 8.7 mg/dL (7.8-10.44); Carbon Dioxide 26 mmol/L (22-29); Chloride 110 mmol/L (98-107); Estimated GFR-MDRD Greater than 90; Globulin 2.5 g/dL (2.4-3.5); Glucose 142 mg/dL (70-105); Lipase 14 U/L (8-78); Protein, Total 6.4 g/dL (6.0-8.3); Sodium 140 mmol/L (136-145)
[2019-11-04] MEDS ORDERED: Pantoprazole 40 MG VIAL ONE (18:05)
[2019-11-04 19:01] LABS: INR-International Normal Ratio 1.1; Prothrombin Time 14.3 SEC (12.0-14.7)
[2019-11-04] MEDS ORDERED: Octreotide Acetate 1,250 MCG in Sodium Chloride 0.9% 250 ML 250 ML IVPB SCH (19:15)
--- NOTE | 2019-11-04 19:19 | CT ---
CT ABDOMEN AND PELVIS WITH CONTRAST: 11/04/19 HISTORY: Abdominal pain. COMPARISON: None. FINDINGS: Lung bases are clear. No pericardial effusion. There is extensive gastric varices. Low grade splenic varices. Incidental note is made of a splenule. The aortoiliac contour is nonaneurysmal. No retroperitoneal or periaortic adenopathy. Hypodensity in hepatic segment II, too small to fully characterize but statistically likely a cyst. The gallbladder is normal. The appendix is visualized and is normal. The portal vein is patent. No dilated loops of large or small bowel. Adrenal glands are unremarkable. No hydronephrosis. Subtle nodular contour of the liver. No acute osseous abnormality. IMPRESSION: Hepatic cirrhosis with findings of portal hypertension including splenomegaly along with large gastri c and esophageal varices. POS: HOME
--- NOTE | 2019-11-04 19:32 | PDOC.FPRHP ---
- History of Present Illness Chief Complaint: black tarry stool, coffee ground emesis History of Present Illness: Patient is a 59M with PMHx of cirrhosis, alcohol abuse, HTN presenting after having 1 black tarry stool and 1 episode of coffee ground emesis today. Patient reports that symptoms of nausea occurred yesterday around 5pm. Per patient, the episode of coffee ground emesis occurred this morning at 1am. He also had 1 episode of black tarry stool today. He denies any other symptoms, and denies any abdominal pain. He is followed by Dr. Jansen, GI; last EGD February 2019. No recorded hx of colonoscopy. Per patient he quit smoking and drinking alcohol 1 year ago, but had drank 6 beers/day for "many years" prior to quitting. PCP: [facility] ED Course: IV pantoprazole 80mg, , pantoprazole 8mg/hr, IV octeotride drip 50mcg/hr, 1L NS - Allergies/Adverse Reactions Allergies Allergy/AdvReac Type Severity Reaction Status Date / Time No Known Allergies Allergy Verified 11/04/19 21:26 - Home Medications Medication Instructions Recorded Confirmed Type Propranolol [Inderal] 20 mg PO BID #60 tab 10/19/18 11/04/19 Rx - History PMHx: Cirrhosis, HTN PSHx: none FHx: dad-passed of cancer of unknown cause Social: quit smoking and alcohol use 1 year ago, alcohol consumption use to be 6 beers/day, no drug use - Review of Systems General: denies: fever/chills, weight/appetite/sleep changes Eyes: denies: eye pain, vision changes ENT: denies: nasal congestion, rhinorrhea Respiratory: denies: cough, shortness of breath Cardiovascular: denies: chest pain, edema Gastrointestinal: reports: nausea, vomiting, GI bleeding. denies: diarrhea Genitourinary: denies: incontinence, discharge Skin: denies: jaundice, itching Musculoskeletal: denies: stiffness, swelling Neurological: denies: syncope, seizure Psychological: denies: anxiety, depression - Vital signs BP: [116/76] HR: [85] RR: [16] Tmax: [98] Pox: [96]% on [RA] Wt: [68.49kg] - Physical Exam Constitutional: NAD, awake, alert and oriented HEENT: EOMI, MMM Neck: supple, FROM Chest: no-tender to palpation, no lesions Heart: RRR, normal S1/S2 Lungs: CTAB, no respiratory distress Abdomen: soft, non-tender, bowel sounds present Musculoskeletal: normal structure, normal tone Neurological: no focal deficit, normal sensation Skin: no rash/lesions, good turgor Heme/Lymphatic: no unusual bruising or bleeding, no purpura Psychiatric: normal mood and affect, good judgment and insight FMR H&P: Results - Labs Result Diagrams: 11/04/19 16:22 11/04/19 16:21 Lab results: WBC 6.9 thou/uL (4.8-10.8) 11/04/19 16:22 Hgb 12.8 g/dL (14.0-18.0) L 11/04/19 16:22 Hct 37.4 % (42.0-52.0) L 11/04/19 16:22 MCV 103.0 fL (78.0-98.0) H 11/04/19 16:22 Plt Count 88 thou/uL (130-400) L 11/04/19 16:22 Neutrophils % 57.8 % (42.0-75.0) 11/04/19 16:22 Sodium 140 mmol/L (136-145) 11/04/19 16:21 Potassium 4.0 mmol/L (3.5-5.1) 11/04/19 16:21 Chloride 110 mmol/L (98-107) H 11/04/19 16:21 Carbon Dioxide 26 mmol/L (22-29) 11/04/19 16:21 BUN 19 mg/dL (8.4-25.7) 11/04/19 16:21 Creatinine 0.80 mg/dL (0.7-1.3) 11/04/19 16:21 Glucose 142 mg/dL (70-105) H 11/04/19 16:21 Calcium 8.7 mg/dL (7.8-10.44) 11/04/19 16:21 Total Bilirubin 1.3 mg/dL (0.2-1.2) H 11/04/19 16:21 AST 32 U/L (5-34) 11/04/19 16:21 ALT 35 U/L (8-55) 11/04/19 16:21 Alkaline Phosphatase 121 U/L (40-110) H 11/04/19 16:21 Creatine Kinase 100 U/L (30-200) 11/04/19 16:21 Serum Total Protein 6.4 g/dL (6.0-8.3) 11/04/19 16:21 Albumin 3.9 g/dL (3.5-5.0) 11/04/19 16:21 Lipase 14 U/L (8-78) 11/04/19 16:21 - Radiology Interpretation CT scan - abdomen Status: report reviewed by me (Hepatic cirrhosis with findings of portal hypertension including splenomegaly along with large gastric and esophageal varices) FMR H&P: A/P - Problem List (1) HTN (hypertension) Current Visit: Yes Status: Acute Code(s): I10 - ESSENTIAL (PRIMARY) HYPERTENSION (2) Esophageal varices in alcoholic cirrhosis Current Visit: No Status: Chronic Code(s): K70.30 - ALCOHOLIC CIRRHOSIS OF LIVER WITHOUT ASCITES; I85.10 - SECONDARY ESOPHAGEAL VARICES WITHOUT BLEEDING (3) UGIB (upper gastrointestinal bleed) Current Visit: No Status: Resolved Code(s): K92.2 - GASTROINTESTINAL HEMORRHAGE, UNSPECIFIED - Plan Patient is a 59M with PMHx of cirrhosis, hx of alcohol abuse, HTN admitted for upper GI bleed. #Upper GI Bleed -vss stable at this time, only 1 episode coffee ground emesis and 1 episode black tarry stool -CT demonstrates esophageal varices -H/H stable -FOBT + -started on octreotide in ED, continue drip for now -started on 80mg IV pantoprazole, will continue to finish bag and starte 40mg IV pantoprazole BID in am -will start IV rocephin for infection ppx -patient sees Dr. Jansen outpatient, will consult in am -SCDs for dvt ppx, will hold anticoagulation for now due to bleed #HTN -not currently taking any medications outpatient and BP 139/64 -will continue to monitor #Hx of alcohol abuse and liver cirrhosis -followed by Dr. Jansen outpatient -GI consult in am DVT ppx: SCDs due to bleeding risk Diet: NPO Dispo: medical obs for monitoring of emesis, IV protonix and octeotride, monitor H/H and vitals, consult Dr. Jansen in am Code: full FMR H&P: Upper Level - Plan Date/Time: 11/04/19 193 I, Pierre Tejeda MD, have evaluated this patient and agree with findings/ plan as outlined by operations intern resident. Pertinent changes/additions are listed here. 59 yo male with known alcoholic cirrhosis presents due to 1 episode of coffee ground emesis and nausea. Please see operations intern note above for further information. 1. Alcoholic cirrhosis -s/p cessation of drinking - regularly sees Dr. Jansen, GI - Plan to consult GI in AM 2. Esophageal varices with GI bleed - FOBT positive in ED - GI consult in AM - Trend H&H - Octreotide and Protonix initiated - Prophylactic Rocephin initiated All other chronic conditions reviewed and medications to be restarted as appropriate. PCP: [facility] Davis CODE STATUS: FULL CODE Disposition: Stable, will admit to medical floor for further evaluation and management. Addendum - Attending - Attending Attestation Date/Time: 11/05/19 0032 I personally evaluated the patient and discussed the management with the team on 11/04. I agree with the History, Examination, Assessment and Plan documented above with any addition or exceptions noted below.
[2019-11-04] MEDS ORDERED: Ondansetron PF 4 MG/2 ML Vial IVP PRN (21:21)
[2019-11-04] MEDS ORDERED: Sodium Chloride 0.9% 1,000 ML IV SCH (21:21)
[2019-11-04] MEDS ORDERED: Ondansetron ODT 4 MG TAB SL PRN (21:21)
[2019-11-04] MEDS ORDERED: Ondansetron ODT 4 MG TAB PO PRN (21:24)
[2019-11-04] MEDS ORDERED: Lactated Ringer's 1,000 ML IV SCH (21:24)
[2019-11-04 21:27] VITALS: BMI 27.5
[2019-11-04] MEDS: Sodium Chloride 0.9% 1,000 ML IV SCH (22:07)
[2019-11-04] MEDS: cefTRIAXone\\ROCEPHIN 1 GM in Sodium Chloride 0.9% 100 ML IVPB SCH (22:08)
--- NOTE | 2019-11-05 06:26 | PDOC.FM ---
- Subjective Subjective: Pt denies any more episodes of melena, hematemasis. He has one episode of each yesterday. He denies any other symptoms. - Objective Vital Signs & Weight: Vital Signs (12 hours) Temp Pulse Resp BP BP Pulse Ox 11/05/19 05:10 98.7 F 81 18 110/65 96 11/05/19 00:00 98.2 F 77 18 102/63 94 L 11/04/19 21:15 98 F 81 16 136/80 98 11/04/19 21:10 97 F L 81 16 136/80 98 Weight Weight 72.688 kg I&O: 11/03/19 11/04/19 11/05/19 06:59 06:59 06:59 Intake Total 2039 Balance 2039 Result Diagrams: 11/05/19 06:01 11/05/19 06:01 Phys Exam - Physical Examination Constitutional: NAD HEENT: PERRLA, moist MMs Respiratory: no wheezing, no rales, clear to auscultation bilateral Cardiovascular: RRR, no significant murmur Gastrointestinal: soft, non-tender, no distention Musculoskeletal: no edema, pulses present Psychiatric: normal affect, A&O x 3 Dx/Plan (1) HTN (hypertension) Code(s): I10 - ESSENTIAL (PRIMARY) HYPERTENSION Status: Acute (2) Acute blood loss anemia Code(s): D62 - ACUTE POSTHEMORRHAGIC ANEMIA Status: Acute (3) Esophageal varices in alcoholic cirrhosis Code(s): K70.30 - ALCOHOLIC CIRRHOSIS OF LIVER WITHOUT ASCITES; I85.10 - SECONDARY ESOPHAGEAL VARICES WITHOUT BLEEDING Status: Chronic (4) Thrombocytopenia Code(s): D69.6 - THROMBOCYTOPENIA, UNSPECIFIED Status: Chronic (5) Alcohol abuse Code(s): F10.10 - ALCOHOL ABUSE, UNCOMPLICATED Status: Resolved (6) UGIB (upper gastrointestinal bleed) Code(s): K92.2 - GASTROINTESTINAL HEMORRHAGE, UNSPECIFIED Status: Resolved - Plan Plan: Patient is a 59M with PMHx of cirrhosis, hx of alcohol abuse, HTN admitted for upper GI bleed. #Upper GI Bleed # Portal HTN # Gastric/Esophageal Varices - CT noted hepatic cirrhosis, portal HTN, slenomegaly, large gastric/esophageal varices -vss stable at this time, only 1 episode coffee ground emesis and 1 episode black tarry stool -CT demonstrates esophageal varices -Hgb 12.8 --> 10.6 -FOBT + -started on octreotide in ED, continue drip for now -started on 80mg IV pantoprazole, will continue to finish bag and starte 40mg IV pantoprazole BID in am -will continue IV rocephin for infection ppx -patient sees Dr. Jansen outpatient, seen by Dr. Jansen who will perform EGD today. -SCDs for dvt ppx, will hold anticoagulation for now due to bleed #HTN -not currently taking any medications outpatient and BP 110/65 -will continue to monitor #Hx of alcohol abuse and liver cirrhosis -followed by Dr. Jansen outpatient -GI consult in am # Acute Blood Loss Anemia on Chronic Anemia - As above # Thrombocytopenia - likely secondary to cirrhosis DVT ppx: SCDs due to bleeding risk Diet: NPO Dispo: medical obs for monitoring of emesis, IV protonix and octeotride, monitor H/H and vitals, EGD with Dr. Jansen today. Code: full
[2019-11-05] MEDS: Sodium Chloride 0.9% 1,000 ML IV SCH ×2 (06:27→16:49)
[2019-11-05 06:32] LABS: INR-International Normal Ratio 1.2; PTT 32.4 SEC (22.9-36.1); Prothrombin Time 15.3 SEC (12.0-14.7)
[2019-11-05 06:35] LABS: #Eosinphils 0.1 thou/uL (0.0-0.7); #Lymphocytes 1.4 thou/uL (1.20-3.40); #Monocytes 0.2 thou/uL (0.11-0.59); #Neutrophils 1.8 thou/uL (1.40-6.50); %Basophils 0.8 % (0.0-1.0); %Eosinophils 2.1 % (0.0-10.0); %Lymphocytes 40.1 % (21.0-51.0); %Monocytes 6.7 % (0.0-10.0); %Neutrophils 50.4 % (42.0-75.0); Hemoglobin 10.6 g/dL (14.0-18.0); Mean Corpuscular HGB CONC 35.2 g/dL (32.0-36.0); Mean Corpuscular Hemoglobin 36.1 pg (27.0-31.0); Mean Platelet Volume 8.7 fL (7.4-10.4); Platelet Count 62 thou/uL (130-400); RBC Distribution Width 12.5 % (11.5-14.5); Red Blood Cell (RBC) Count 2.95 mill/uL (4.70-6.10); White Blood Cell (WBC) Count 3.5 thou/uL (4.8-10.8)
[2019-11-05 06:45] LABS: Anion Gap 10 mmol/L (10-20); BUN (Urea Nitrogen) 16 mg/dL (8.4-25.7); Calc. Creatinine Clearance 94 mL/min (70-130); Carbon Dioxide 23 mmol/L (22-29); Chloride 114 mmol/L (98-107); Estimated GFR-MDRD 88; Glucose 144 mg/dL (70-105); Potassium 3.9 mmol/L (3.5-5.1); Sodium 143 mmol/L (136-145)
[2019-11-05] MEDS: Pantoprazole 40 MG VIAL IVP SCH ×2 (09:03→20:04)
[2019-11-05 09:39] LABS: Hemoglobin A1c 6.3 % (4.0-6.0)
[2019-11-05] MEDS ORDERED: PROPOFOL 200 MG/20 ML VIAL ONE (10:09)
[2019-11-05 11:34] LABS: HBSAB Concentration 1.76 mIU/mL; HBSAg Index 0.23 S/CO (0-0.99); Hep B Core Total Ab Non-Reactive (NonReactive); Hep B Core Total Index 0.05 S/CO (0-0.79); Hep B Surf AB Non-Reactive (NonReactive); Hep B Surf Ag Non-Reactive S/CO (NonReactive)
--- NOTE | 2019-11-05 13:59 | CON ---
DATE OF CONSULTATION: 11/05/2019 REASON FOR CONSULTATION: Hematemesis, melena. CONSULTING PROVIDER: Dr. Lakeshia Salguero. HISTORY OF PRESENT ILLNESS: The patient is a 59-year-old male with past medical history of hypertension and alcoholic cirrhosis, complicated by esophageal varices that have bled in the past and has undergone multiple band ligation, presenting with complaints of hematemesis and melena. He states that he was in his usual state of health until approximately yesterday afternoon when he began to have increased nausea/midepigastric abdominal discomfort. This persisted throughout the latter portion of the day and ultimately at around 1:00 a.m. this morning, the patient experienced nausea and vomiting with coffee-ground appearing emesis. At the same time, he did have an episode of diarrhea that he characterized as a dark black liquid type stool with no difficulty with defecation. Since that time, he has only had 1 episode. These only episodes of coffee-ground emesis and black colored stools with no further recurrences throughout the day. He also states that upon vomiting his midepigastric discomfort resolved as well. However, given his history of bleeding esophageal varices in the past with the appearance of the darker colored vomitus and melena, it prompted him to seek healthcare assistance in the [facility] ER. Currently, he denies any fever, chills, hematochezia, dysphagia, odynophagia, constipation, or weight loss. Of note, the patient had been placed on propranolol 20 mg b.i.d. as an outpatient as part of primary prophylaxis for esophageal varix bleeding. Per the patient and his , he has been faithful to this medication with no missed doses. Also of note, his last EGD was in 02/2019 with band ligation not performed at that time, but with small varices seen during that examination. REVIEW OF SYSTEMS: A 10-category review of systems was obtained with all responses negative except for the pertinent positives as listed in HPI. PAST MEDICAL HISTORY: As per HPI. PAST SURGICAL HISTORY: Upper endoscopies (multiple). FAMILY HISTORY: Father diagnosed with unknown cancer, but otherwise no GI malignancies. SOCIAL HISTORY: Denies any tobacco, alcohol, or illicit drug use. Prior heavy alcohol consumption before one year ago. OUTPATIENT MEDICATIONS: Propranolol 20 mg b.i.d. ALLERGIES: NO KNOWN DRUG ALLERGIES. PHYSICAL EXAMINATION: VITAL SIGNS: Temperature 98.7, pulse 82, blood pressure 106/64, respiratory rate 18, and saturating 93% on room air. GENERAL: The patient was lying in bed, in no acute distress. Alert and oriented x4. HEENT: Neck is supple. No JVD or scleral icterus noted. Normocephalic and atraumatic. CARDIOVASCULAR: Regular rate and rhythm with no discernable murmurs, gallops, or rubs. RESPIRATORY: Clear to auscultation bilaterally with no discernable wheezes or rales. ABDOMEN: Normoactive bowel sounds. Soft, nontender, and nondistended. EXTREMITIES: No cyanosis, clubbing, or edema. LABORATORY DATA: CBC with a white blood cell count of 3.5, hemoglobin 10.6, hematocrit 30.2, and platelets 62. INR 1.2. Chemistry with a sodium of 143, potassium 3.9, chloride 114, CO2 of 23, BUN 16, creatinine 0.89, and glucose 144. AST 32, ALT 35, alkaline phosphatase 121, and total bilirubin 1.3. Calculated MELD score of 9. IMAGING DATA: A CT of the abdomen and pelvis was obtained on 11/04/2019, showing extensive gastric varices as well as the presence of esophageal and splenic varices. Cirrhotic morphology was seen in the liver without any mention of gross masses or lesions. EGD was performed on 03/24/2019, which showed small esophageal varices (grade 1) in the distal esophagus with an ulceration at the GE junction, consistent with prior band ligation site, but there was no evidence of active or recent bleeding at that time. Moderate portal hypertensive gastropathy was also seen during that examination, but there was no evidence of gastric varices during that procedure. ASSESSMENT AND PLAN: The patient is a 59-year-old male with past medical history of hypertension and alcoholic cirrhosis, complicated by esophageal varices that have undergone multiple band ligation in the past, presenting with hematemesis and melena, concerning for an upper gastrointestinal bleed. Upper gastrointestinal bleeding/hematemesis/melena: The patient is presenting with acute onset of hematemesis and melena x1 in light of a history of alcoholic cirrhosis and esophageal varices that have bled in the past, requiring the placement of band ligation. At this time, given his relatively negative prior upper endoscopy in 02/2019 and concurrent administration of propranolol 20 mg b.i.d., the likelihood of an esophageal varix bleed is low, but still on the differential. Differential could include esophagitis, portal hypertensive gastropathy, arteriovenous malformation, Dieulafoy lesion, esophageal varices, gastric varices, peptic ulcer disease, and/or gastrointestinal neoplasm (much less likely given negative endoscopy in February). RECOMMENDATIONS: 1. We would continue to trend his hemoglobin and hematocrit and transfuse as necessary to maintain a hemoglobin and hematocrit of 7/21. 2. Continue to monitor clinically for signs of active GI bleeding. 3. We would continue patient on both pantoprazole and octreotide drips until after upper endoscopy. 4. We would continue with antibiotic prophylaxis with ceftriaxone daily in light of the patient's concurrent diagnosis of cirrhosis. 5. We would continue n.p.o. status with plans to repeat the upper endoscopy today. We will continue to follow. Please call with any questions. Job ID: [id number]
[2019-11-05] MEDS ORDERED: Fentanyl 100 MCG/2 ML VIAL ONE (15:17)
[2019-11-05] MEDS: Octreotide Acetate 1,250 MCG in Sodium Chloride 0.9% 250 ML 250 ML IVPB SCH (18:06)
--- NOTE | 2019-11-05 19:37 | ULT ---
EXAM: US Hepatic Doppler PROVIDED CLINICAL HISTORY: Esophageal varices COMPARISON: None FINDINGS: The abdominal aorta and pancreas are obscured. The spleen is enlarged, measuring about 15.6 cm in aircraft servicer niocaudal dimension. The liver demonstrates no evidence for mass or intrahepatic biliary ductal dilatation. The common duct is nondilated. Bladder wall appears thickened without gallstones or peric holecystic fluid. Sonographic Fernandez sign is documented as negative. Right kidney demonstrates no hydronephrosis or mass. Color Doppler and spectral analysis of the hepatic portal, hepatic venous, hepatic arterial, splenic arterial and splenic venous waveforms demonstrates normal direction of lobe. IMPRESSION: Normal hepatic Doppler. Splenomegaly.
--- NOTE | 2019-11-05 21:23 | OP ---
DATE OF PROCEDURE: 11/05/2019 PROCEDURE: EGD with band ligation. INDICATION FOR PROCEDURE: Hematemesis, melena, history of bleeding esophageal varices with EGD in 02/2019 showing small esophageal varices and no bleeding. DESCRIPTION OF PROCEDURE: After the risks and benefits of the procedure were explained to the patient including risks of bleeding, infection, perforation, reactions to anesthesia, aspiration and/or pain, informed consent was obtained. The patient was then taken to the endoscopy suite, where he was placed in the left lateral decubitus position, followed by introduction of propofol via Anesthesia support. Once adequate sedation was achieved, the standard gastroscope was introduced into the mouth with intubation of the esophagus, stomach, and the proximal small intestines with the findings listed below. The patient tolerated the procedure well with no immediate perioperative complications. Upon conclusion of the procedure, the patient was transferred to PACU in satisfactory condition. FINDINGS: Esophagus: Normal-appearing mucosa was seen in the proximal and midesophagus. Esophageal varices (grade 2) were seen in the distal esophagus that did not flatten with insufflation. Two of these columns of esophageal varices also exhibited red Faviola sign, but no evidence of active or recent bleeding. Otherwise, there was no evidence of erosions, ulcerations, mass, lesions, or active/recent bleeding. Given that the red Faviola signs are high-risk stigmata of bleeding, band ligation was then performed with bands x3 placed in the distal esophagus with good hemostasis achieved. Also noted was an increased amount of scar tissue in the distal esophagus in a radial like pattern consistent with prior band ligation. Stomach: Increased mucosal erythema was seen throughout the entire stomach and exhibited a mosaic type pattern within the gastric cardia, fundus, body, greater curvature, antrum, and incisura. There were 2 areas of increased redness to this mucosal erythema in a linear type fashion. It did exhibit a mild oozing of blood, but upon irrigation of these bleeding areas, no additional bleeding was seen. Otherwise, there was no evidence of erosions, ulcerations, or mass lesions seen throughout the entire stomach. No gastric varices were seen on gastric retroflexion. Duodenum: Normal-appearing mucosa was seen in both the duodenal bulb and second portion of the duodenum. There was no evidence of erosions, ulcerations, mass, lesions, or active/recent bleeding. IMPRESSION: 1. Grade 2 distal esophageal varices with red faviola sign status post band ligation x3. 2. Moderate portal hypertensive gastropathy with mild oozing of blood. 3. No evidence of gastric varices on gastric retroflexion. RECOMMENDATIONS: 1. We would continue to trend his H and H and transfuse as necessary to maintain an H and H of 7/21. 2. We would continue PPI drip for the next 24 hours then transfer to 40 mg IV b.i.d. 3. We would continue the octreotide drip for total duration of therapy of approximately 72 hours given the presence of probable bleeding esophageal varices. 4. We would continue antibiotic prophylaxis with total duration of therapy of [address] days[address] 5[address] We will place the patient on a clear liquid diet today to avoid disruption of the bands placed today, but would advance his diet as tolerated in 24 hours. 6. I will order a right upper quadrant ultrasound with Doppler studies to evaluate for possible worsening portal hypertension that would contribute to a portal hypertensive gastropathy and worsening esophageal varices given his response to band ligation in the past. 7. We would restart the patient on propranolol 20 mg b.i.d. in approximately 48 hours, if hemodynamically stable and continue with goal target heart rate of between 55 to 65 beats per minute. 8. We will continue to follow. Please call with any questions. Job ID: [id number]
[2019-11-05] MEDS: cefTRIAXone\\ROCEPHIN 1 GM in Sodium Chloride 0.9% 100 ML IVPB SCH (21:27)
[2019-11-06] MEDS: Sodium Chloride 0.9% 1,000 ML IV SCH ×2 (04:48→17:38)
[2019-11-06 06:55] LABS: #Eosinphils 0.1 thou/uL (0.0-0.7); #Lymphocytes 0.9 thou/uL (1.20-3.40); #Monocytes 0.2 thou/uL (0.11-0.59); #Neutrophils 1.3 thou/uL (1.40-6.50); %Basophils 1.2 % (0.0-1.0); %Eosinophils 2.9 % (0.0-10.0); %Lymphocytes 35.9 % (21.0-51.0); %Monocytes 7.9 % (0.0-10.0); Hemoglobin 10.2 g/dL (14.0-18.0); Mean Corpuscular HGB CONC 35.4 g/dL (32.0-36.0); Mean Corpuscular Hemoglobin 35.9 pg (27.0-31.0); Mean Platelet Volume 8.2 fL (7.4-10.4); Platelet Count 49 thou/uL (130-400); RBC Distribution Width 12.4 % (11.5-14.5); Red Blood Cell (RBC) Count 2.84 mill/uL (4.70-6.10); White Blood Cell (WBC) Count 2.4 thou/uL (4.8-10.8)
[2019-11-06 07:16] LABS: Anion Gap 8 mmol/L (10-20); BUN (Urea Nitrogen) 10 mg/dL (8.4-25.7); Calc. Creatinine Clearance 106 mL/min (70-130); Calcium 7.5 mg/dL (7.8-10.44); Carbon Dioxide 24 mmol/L (22-29); Chloride 110 mmol/L (98-107); Estimated GFR-MDRD Greater than 90; Glucose 127 mg/dL (70-105); Potassium 3.6 mmol/L (3.5-5.1); Sodium 138 mmol/L (136-145)
--- NOTE | 2019-11-06 07:25 | PDOC.FM ---
- Subjective Subjective: Pt is doing well today. He denies melena, hematochezia, N/V, syncope, lightheadedness. He has no complaints or questions. - Objective Vital Signs & Weight: Vital Signs (12 hours) Temp Pulse Resp BP Pulse Ox 11/06/19 04:00 98.3 F 80 16 106/67 96 11/06/19 00:24 98.3 F 77 18 119/72 96 Weight Weight 72.688 kg I&O: 11/05/19 11/06/19 11/07/19 06:59 06:59 06:59 Intake Total 2039 3830 Balance 2039 3830 Result Diagrams: 11/06/19 06:43 11/06/19 06:43 Phys Exam - Physical Examination Constitutional: NAD HEENT: PERRLA, moist MMs Respiratory: no wheezing, no rales, clear to auscultation bilateral Cardiovascular: RRR, no significant murmur Gastrointestinal: soft, non-tender, no distention Musculoskeletal: no edema, pulses present Dx/Plan (1) HTN (hypertension) Code(s): I10 - ESSENTIAL (PRIMARY) HYPERTENSION Status: Acute (2) Acute blood loss anemia Code(s): D62 - ACUTE POSTHEMORRHAGIC ANEMIA Status: Acute (3) Esophageal varices in alcoholic cirrhosis Code(s): K70.30 - ALCOHOLIC CIRRHOSIS OF LIVER WITHOUT ASCITES; I85.10 - SECONDARY ESOPHAGEAL VARICES WITHOUT BLEEDING Status: Chronic (4) Thrombocytopenia Code(s): D69.6 - THROMBOCYTOPENIA, UNSPECIFIED Status: Chronic (5) Alcohol abuse Code(s): F10.10 - ALCOHOL ABUSE, UNCOMPLICATED Status: Resolved (6) UGIB (upper gastrointestinal bleed) Code(s): K92.2 - GASTROINTESTINAL HEMORRHAGE, UNSPECIFIED Status: Resolved - Plan Plan: Patient is a 59M with PMHx of cirrhosis, hx of alcohol abuse, HTN admitted for upper GI bleed. #Upper GI Bleed # Portal HTN # Gastric/Esophageal Varices - CT noted hepatic cirrhosis, portal HTN, slenomegaly, large gastric/esophageal varices -vss stable at this time, only 1 episode coffee ground emesis and 1 episode black tarry stool -CT demonstrates esophageal varices -Hgb 12.8 --> 10.6 -FOBT + -will continue IV rocephin for infection ppx -patient sees Dr. Jansen outpatient, seen by Dr. Jansen who performed EGD yesterday - great 2 esophageal varices w/ red faviola sign s/p band ligation x 3, HTN gatrsopathy w/ mild oozing. Recommends protonix drip for 24 hours then switch to IV, abx x 5 days, advance diet at 1600 from clear liquid, restart propanolol at 48 hours if HR, BP can tolerate. -SCDs for dvt ppx, will hold anticoagulation for now due to bleed #HTN -not currently taking any medications outpatient and BP 110/65 -will continue to monitor #Hx of alcohol abuse and liver cirrhosis -followed by Dr. Jansen outpatient -repeat u/s RUQ # Acute Blood Loss Anemia on Chronic Anemia - As above - B12, folate pending; ferrous sulfate BID # Thrombocytopenia - likely secondary to cirrhosis DVT ppx: SCDs due to bleeding risk Diet: NPO Dispo: medical obs for monitoring of emesis, IV protonix and octeotride, monitor H/H and vitals, EGD with Dr. Jansen today. Code: full
[2019-11-06] MEDS: Pantoprazole 40 MG VIAL IVP SCH ×2 (08:39→21:08)
[2019-11-06] MEDS: Ferrous Sulfate 325 MG TAB PO SCH ×2 (08:40→17:31)
[2019-11-06] MEDS ORDERED: Recombivax (HEP-B) 5 MCG/0.5 ML VIAL IM ONE (09:45)
--- NOTE | 2019-11-06 12:18 | PRG ---
DATE OF SERVICE: 11/06/2019 REASON FOR CONSULTATION: Hematemesis, melena, history of cirrhosis. SUBJECTIVE: Overnight, the patient did not have any acute events or problems. He did have 1 bowel movement yesterday prior to the EGD, but it was normal in consistency and color. Since that time, he has had no further episodes of coffee-ground emesis or melenic type stools. He currently denies any nausea, vomiting, fevers, chills, abdominal pain, chest pain, GI bleeding, dysphagia, or odynophagia. OBJECTIVE: VITAL SIGNS: Temperature 98.6, pulse 77, blood pressure 117/65, respiratory rate 18, saturating 97% on room air. GENERAL: The patient was lying in bed, in no acute distress. Alert and oriented x4. CARDIOVASCULAR: Regular rate and rhythm. RESPIRATORY: Clear to auscultation bilaterally. ABDOMEN: Normoactive bowel sounds. Soft, nontender, nondistended. EXTREMITIES: No cyanosis, clubbing, or edema. LABORATORY DATA: CBC with a white blood cell count of 2.4, hemoglobin 10.2, hematocrit 28.8, platelets 49. Chemistry with a sodium of 138, potassium 3.6, chloride 110, CO2 of 24, BUN 10, creatinine 0.79, glucose 127. IMAGING DATA: EGD was performed on November 05, 2019, with the findings of grade 2 esophageal varices in the distal esophagus with associated red faviola sign concerning for recent bleeding. This was intervened upon with band ligation x3 with good hemostasis achieved. Right upper quadrant ultrasound was also performed on November 05, 2019, which showed splenomegaly, but did not show any evidence of hepatic masses, intra or extrahepatic dilatation, or derangements in blood flow both in and out of the liver on Doppler evaluation. There was no evidence of hepatic portal, hepatic venous, hepatic arterial, splenic arterial, or splenic venous thrombosis. ASSESSMENT AND PLAN: The patient is a 59-year-old male with past medical history of hypertension and alcoholic cirrhosis complicated by esophageal varices, who has undergone multiple band ligation in the past, presenting with hematemesis and melena and with endoscopic findings consistent with a variceal bleeding. Upper GI bleed/esophageal varices: The patient initially presented with acute onset of hematemesis and melena with only one occurrence prior to admission. He ultimately underwent EGD on November 05, 2019, with the findings of grade 2 esophageal varices with red faviola sign overlying them concerning for a possible recent bleed. This was intervened upon with band ligation x3 with good hemostasis achieved. Since intervention, he has not had any further episodes of hematemesis nor melena. His hemoglobin and hematocrit are also has remained stable over the last 24 hours. Right upper quadrant ultrasound performed on November 05, 2019, did not show any evidence of portal vein thrombosis that might contribute to worsening esophageal varices. At this time, his esophageal varices have been worsening over the last 6 months despite the fact of being on propranolol as primary prophylaxis for variceal bleeding. Given the lack of evidence of portal vein thrombosis, an obstructive or vascular process is unlikely and may be more indicative of worsening scar tissue within the liver creating increasing portal hypertension. If the patient were to experience another episode of hematemesis or melena, he should be considered for possible TIPS procedure. 1. Recommendations: a. We would continue to trend his hemoglobin and hematocrit and transfuse as necessary to maintain a hemoglobin and hematocrit of 7/21. b. Continue to monitor clinically for signs of active GI bleeding. c. We would continue the patient on pantoprazole, but transfer to IV formulations b.i.d. d. We would continue octreotide drip for at least 48 to 72 hours total duration of therapy. e. We would continue antibiotic prophylaxis with ceftriaxone while inpatient, but could transfer the patient to ciprofloxacin as an outpatient to achieve 5 days of total therapy. f. Advance the patient's diet as tolerated. Alcoholic cirrhosis: The patient is presenting with a history of alcoholic cirrhosis with decompensated disease as evidenced by the presence of esophageal varices. However, upon calculation of his MELD score during this admission, his current MELD score is 9 and Child-Saleh classification A, which is indicative of a good 90-day prognosis. Right upper quadrant ultrasound obtained during this admission was negative for the presence of hepatocellular carcinoma. 1. Recommendations: a. The patient will need imaging of the liver every 6 months for screening for hepatocellular carcinoma. b. Management of esophageal varices as above. c. I reiterated to the patient the importance of alcohol cessation or continued alcohol abstinence. We will continue to follow. Please call with any questions. Job ID: [id number]
[2019-11-06] MEDS ORDERED: Hepatitis B Vaccine 10 MCG/0.5 ML SYR IM ONE (17:00)
[2019-11-06] MEDS: Octreotide Acetate 1,250 MCG in Sodium Chloride 0.9% 250 ML 250 ML IVPB SCH (19:44)
[2019-11-06] MEDS: cefTRIAXone\\ROCEPHIN 1 GM in Sodium Chloride 0.9% 100 ML IVPB SCH (21:08)
[2019-11-07] MEDS: Sodium Chloride 0.9% 1,000 ML IV SCH (05:18)
[2019-11-07 06:22] LABS: #Eosinphils 0.1 thou/uL (0.0-0.7); #Lymphocytes 0.8 thou/uL (1.20-3.40); #Monocytes 0.2 thou/uL (0.11-0.59); #Neutrophils 1.1 thou/uL (1.40-6.50); %Eosinophils 4.1 % (0.0-10.0); %Lymphocytes 36.6 % (21.0-51.0); %Monocytes 7.4 % (0.0-10.0); Hemoglobin 10.2 g/dL (14.0-18.0); Mean Corpuscular HGB CONC 35.9 g/dL (32.0-36.0); Mean Corpuscular Hemoglobin 36.5 pg (27.0-31.0); Mean Platelet Volume 8.4 fL (7.4-10.4); Platelet Count 59 thou/uL (130-400); RBC Distribution Width 12.4 % (11.5-14.5); Red Blood Cell (RBC) Count 2.79 mill/uL (4.70-6.10); White Blood Cell (WBC) Count 2.2 thou/uL (4.8-10.8)
[2019-11-07 06:24] LABS: INR-International Normal Ratio 1.2; Prothrombin Time 15.3 SEC (12.0-14.7)
--- NOTE | 2019-11-07 06:37 | PDOC.FM ---
- Subjective Subjective: Pt is doing well. He is unchanged. He denies symptomatic anemia, melena, hematochezia, hemopytsis, hematemasis. - Objective Vital Signs & Weight: Vital Signs (12 hours) Temp Pulse Resp BP Pulse Ox 11/06/19 19:45 96 11/06/19 19:43 97.7 F 73 18 136/78 96 Weight Weight 72.688 kg I&O: 11/05/19 11/06/19 11/07/19 06:59 06:59 06:59 Intake Total 2039 3830 1710 Balance 2039 3830 1710 Result Diagrams: 11/07/19 05:54 11/07/19 05:54 Phys Exam - Physical Examination Constitutional: NAD Respiratory: no wheezing, clear to auscultation bilateral Cardiovascular: RRR, no significant murmur Gastrointestinal: soft, non-tender, no distention Musculoskeletal: no edema, pulses present Dx/Plan (1) HTN (hypertension) Code(s): I10 - ESSENTIAL (PRIMARY) HYPERTENSION Status: Acute (2) Acute blood loss anemia Code(s): D62 - ACUTE POSTHEMORRHAGIC ANEMIA Status: Acute (3) Esophageal varices in alcoholic cirrhosis Code(s): K70.30 - ALCOHOLIC CIRRHOSIS OF LIVER WITHOUT ASCITES; I85.10 - SECONDARY ESOPHAGEAL VARICES WITHOUT BLEEDING Status: Chronic (4) Thrombocytopenia Code(s): D69.6 - THROMBOCYTOPENIA, UNSPECIFIED Status: Chronic (5) Alcohol abuse Code(s): F10.10 - ALCOHOL ABUSE, UNCOMPLICATED Status: Resolved (6) UGIB (upper gastrointestinal bleed) Code(s): K92.2 - GASTROINTESTINAL HEMORRHAGE, UNSPECIFIED Status: Resolved - Plan Plan: Patient is a 59M with PMHx of cirrhosis, hx of alcohol abuse, HTN admitted for upper GI bleed. #Upper GI Bleed - No change in plan. Pt will be on IV octreotide for 72 hours from procedure, 11/05 1600 - end 11/08 1600. # Portal HTN # Gastric/Esophageal Varices - CT noted hepatic cirrhosis, portal HTN, slenomegaly, large gastric/esophageal varices -vss stable at this time, only 1 episode coffee ground emesis and 1 episode black tarry stool -CT demonstrates esophageal varices -Hgb 12.8 --> 10.6 -FOBT + -will continue IV rocephin for infection ppx -patient sees Dr. Jansen outpatient, seen by Dr. Jansen who performed EGD yesterday - great 2 esophageal varices w/ red faviola sign s/p band ligation x 3, HTN gatrsopathy w/ mild oozing. Recommends protonix drip for 24 hours then switch to IV, abx x 5 days, advance diet at 1600 from clear liquid, restart propanolol at 48 hours if HR, BP can tolerate. -SCDs for dvt ppx, will hold anticoagulation for now due to bleed #HTN -not currently taking any medications outpatient and BP 110/65 -will continue to monitor #Hx of alcohol abuse and liver cirrhosis -followed by Dr. Jansen outpatient -repeat u/s RUQ # Acute Blood Loss Anemia on Chronic Anemia - As above - B12, folate pending; ferrous sulfate BID # Thrombocytopenia - likely secondary to cirrhosis DVT ppx: SCDs due to bleeding risk Diet: Advance as tolerated Dispo: medical inpatient for monitoring of emesis, IV protonix and octeotride x 3 days Code: full
[2019-11-07 06:40] LABS: Anion Gap 11 mmol/L (10-20); BUN (Urea Nitrogen) 7 mg/dL (8.4-25.7); Calc. Creatinine Clearance 105 mL/min (70-130); Calcium 7.6 mg/dL (7.8-10.44); Carbon Dioxide 20 mmol/L (22-29); Chloride 111 mmol/L (98-107); Estimated GFR-MDRD Greater than 90; Glucose 130 mg/dL (70-105); Potassium 4.2 mmol/L (3.5-5.1); Sodium 138 mmol/L (136-145)
[2019-11-07] MEDS: Ferrous Sulfate 325 MG TAB PO SCH ×2 (08:32→16:49)
[2019-11-07] MEDS: Pantoprazole 40 MG VIAL IVP SCH ×2 (08:33→20:54)
[2019-11-07] MEDS ORDERED: Propranolol HCl 20 MG TAB PO SCH (14:30)
[2019-11-07 15:10] LABS: Folate,Hemolysate 456.4 ng/mL (Not Estab.); RBC Folate Test Component 1521 ng/mL (>498)
--- NOTE | 2019-11-07 16:06 | PRG ---
DATE OF SERVICE: 11/07/2019 REASON FOR CONSULTATION: Hematemesis, melena, history of cirrhosis. SUBJECTIVE: The patient did well overnight with no acute events or problems. Earlier this afternoon, the patient did have a bowel movement that was described as dark, black, and tarry in consistency, but upon further examination, may have been dark brown. Currently, he states that he is doing well with no further episodes of coffee-grounds emesis. He currently denies any nausea, vomiting, fevers, chills, dysphagia, odynophagia, or overt GI bleeding. OBJECTIVE: VITAL SIGNS: Temperature 99.1, pulse 79, blood pressure 124/71, respiratory rate 18, and saturating 95% on room air. GENERAL: The patient is lying in bed, in no acute distress. Alert and oriented x4. CARDIOVASCULAR: Regular rate and rhythm. RESPIRATORY: Clear to auscultation bilaterally. ABDOMEN: Normoactive/hyperactive bowel sounds. Soft, nontender, and nondistended. EXTREMITIES: No cyanosis, clubbing, or edema. LABORATORY DATA: CBC with a white blood cell count of 2.2, hemoglobin 10.2, hematocrit 28.3, platelets 59. Chemistry with a sodium of 138, potassium 4.2, chloride 111, CO2 of 20, BUN 7, creatinine 0.8, and glucose 130. INR 1.2. Calculated MELD score of 11 with a less than 2% estimated 90-day mortality. IMAGING DATA: No current GI imaging is available for review. ASSESSMENT AND PLAN: The patient is a 59-year-old male with past medical history of hypertension and alcoholic cirrhosis complicated by esophageal varices, status post multiple band ligation in the past, presenting with hematemesis and melena with endoscopic findings consistent with variceal bleeding. Upper gastrointestinal bleed/esophageal varices: The patient initially presented with hematemesis and melena with only one occurrence of each prior to admission. He ultimately underwent esophagogastroduodenoscopy on November 05, 2019, with the findings of grade 2 esophageal varices with red faviola sign overlying them concerning for recent bleeding. This was intervened upon with band ligation x3 with good hemostasis achieved. Since this intervention, he has not had any further episodes of hematemesis; although, he did have a darker black-colored bowel movement earlier today, but no change in his hemoglobin and hematocrit. Right upper quadrant ultrasound obtained on November 05, 2019, did not show any evidence of portal vein thrombosis or features that might contribute to worsening portal hypertension. At this time, the most likely etiology for his worsening esophageal varices would be worsening portal hypertension due to chronic liver disease. If the patient were to experience another episode of hematemesis or melena, he should be considered for possible TIPS procedure given his response to band ligation in the past. Recommendations: 1. We would continue to trend his H and H and transfuse as necessary to maintain an H and H of 7/21. 2. Continue to monitor clinically for signs of active GI bleeding. 3. We would continue the patient on PPI b.i.d. 4. We will continue the patient on octreotide drip for total duration of therapy of 72 hours (later on tonight) and then discontinue at that time. 5. We would continue with antibiotic prophylaxis with ceftriaxone while inpatient, but the patient could be transferred to ciprofloxacin 500 b.i.d. as an outpatient to achieve 5 days of total therapy. 6. Advance the patient's diet as tolerated. Alcoholic cirrhosis: The patient is presenting with a history of alcoholic cirrhosis with decompensated disease as evidenced by the presence of esophageal varices. Upon calculation of his MELD score during this admission, it was initially 9, but with a MELD score of 11 as of today with a Child-Saleh classification A. Right upper quadrant ultrasound obtained during this admission was negative for the presence of hepatocellular carcinoma. Recommendations: 1. The patient will need repeat imaging of the liver every 6 months for screening for HCC. 2. Management of esophageal varices as above. 3. Continued abstinence from alcohol. At this time, the patient's H and H have remained fairly stable with the darker colored stool today, possibly retained contents from his earlier bleed. If the patient's H and H are stable tomorrow and otherwise hemodynamically stable, could be potentially discharged to home with followup in the GI clinic in 3 weeks. We will sign off at this time. Please call with any questions. Job ID: [id number]
[2019-11-07] MEDS: Propranolol HCl 20 MG TAB PO SCH (20:53)
[2019-11-07] MEDS: cefTRIAXone\\ROCEPHIN 1 GM in Sodium Chloride 0.9% 100 ML IVPB SCH (20:54)
--- NOTE | 2019-11-08 05:43 | PDOC.FM ---
- Subjective Subjective: Pt is Divehi-speaking. Says he is feeling good this AM. No nausea, vomiting. No bleeding in stools that he knows of. - Objective MAR Reviewed: Yes Vital Signs & Weight: Vital Signs (12 hours) Temp Pulse Resp BP Pulse Ox 11/07/19 20:45 135/66 11/07/19 20:04 97 11/07/19 19:16 98.3 F 59 L 16 166/80 H 97 Weight Weight 72.688 kg I&O: 11/06/19 11/07/19 11/08/19 06:59 06:59 06:59 Intake Total 3830 1710 Balance 3830 1710 Result Diagrams: 11/07/19 05:54 11/07/19 05:54 Phys Exam - Physical Examination Constitutional: NAD Respiratory: clear to auscultation bilateral Cardiovascular: RRR Gastrointestinal: soft Musculoskeletal: no edema Psychiatric: normal affect Dx/Plan (1) HTN (hypertension) Code(s): I10 - ESSENTIAL (PRIMARY) HYPERTENSION Status: Acute (2) Acute blood loss anemia Code(s): D62 - ACUTE POSTHEMORRHAGIC ANEMIA Status: Acute (3) Esophageal varices in alcoholic cirrhosis Code(s): K70.30 - ALCOHOLIC CIRRHOSIS OF LIVER WITHOUT ASCITES; I85.10 - SECONDARY ESOPHAGEAL VARICES WITHOUT BLEEDING Status: Chronic (4) Thrombocytopenia Code(s): D69.6 - THROMBOCYTOPENIA, UNSPECIFIED Status: Chronic (5) Alcohol abuse Code(s): F10.10 - ALCOHOL ABUSE, UNCOMPLICATED Status: Resolved - Plan Plan: Patient is a 59M with PMHx of cirrhosis, hx of alcohol abuse, HTN admitted for upper GI bleed. Upper GI Bleed - s/p EGD w/ esophageal varices banding x3 - Completed IV octreotide for 72 hours Portal HTN Gastric/Esophageal Varices - CT noted hepatic cirrhosis, portal HTN, splenomegaly, large gastric/ esophageal varices - Hgb pending today. If stable, pt may be d/c home - completed 4 days ceftriaxone. Per GI, needs 5 days. If home today will do 1 day of ciprofloxacin BID; otherwise, one dose ceftriaxone tonight - GI, Dr. Jansen consulted; appreciate recs; signed off. - protonix IV. Continue as outpatient - propanolol restarted - SCDs for dvt ppx, will hold pharm ppx HTN -not currently taking any medications outpatient and BP 110/65 -will continue to monitor Hx of alcohol abuse and liver cirrhosis - followed by Dr. Jansen outpatient - RUQ u/s repeated Acute Blood Loss Anemia on Chronic Anemia - B12, folate WNL - ferrous sulfate BID Thrombocytopenia Neutropenia - likely secondary to cirrhosis DVT ppx: SCDs due to bleeding risk Diet: Advance as tolerated Dispo: medical inpatient. Code: full
[2019-11-08 07:49] VITALS: BP 121/70; TEMP 98.6
[2019-11-08] MEDS: Pantoprazole 40 MG VIAL IVP SCH (08:14)
[2019-11-08] MEDS: Propranolol HCl 20 MG TAB PO SCH (08:14)
[2019-11-08] MEDS: Ferrous Sulfate 325 MG TAB PO SCH (08:14)
[2019-11-08 08:20] LABS: #Eosinphils 0.1 thou/uL (0.0-0.7); #Monocytes 0.2 thou/uL (0.11-0.59); #Neutrophils 1.1 thou/uL (1.40-6.50); %Basophils 0.5 % (0.0-1.0); %Eosinophils 2.3 % (0.0-10.0); %Lymphocytes 44.1 % (21.0-51.0); %Monocytes 7.7 % (0.0-10.0); %Neutrophils 45.3 % (42.0-75.0); Hemoglobin 10.6 g/dL (14.0-18.0); Mean Corpuscular Hemoglobin 35.8 pg (27.0-31.0); Mean Platelet Volume 8.5 fL (7.4-10.4); Platelet Count 65 thou/uL (130-400); RBC Distribution Width 12.7 % (11.5-14.5); Red Blood Cell (RBC) Count 2.96 mill/uL (4.70-6.10); White Blood Cell (WBC) Count 2.4 thou/uL (4.8-10.8)
[2019-11-08 08:30] LABS: Anion Gap 11 mmol/L (10-20); BUN (Urea Nitrogen) 5 mg/dL (8.4-25.7); Calc. Creatinine Clearance 107 mL/min (70-130); Calcium 8.1 mg/dL (7.8-10.44); Carbon Dioxide 23 mmol/L (22-29); Chloride 109 mmol/L (98-107); Estimated GFR-MDRD Greater than 90; Glucose 124 mg/dL (70-105); Potassium 3.9 mmol/L (3.5-5.1); Sodium 139 mmol/L (136-145)
== END 2019-11-08 14:53 | disposition home or self-care (01) | DRG 432 ==
LOC: ERS 16:01 → T4-B 19:38 → OBSVTOIN 19:38 → T4-B 21:03
PROVIDERS: ADMIT Emergency Medicine; ATTEND Emergency Medicine
PROC: 06L38CZ Occlusion of Esophageal Vein with Extraluminal Device, Via Natural or Artificial Opening Endoscopic (ICD-10-PCS; principal; 2019-11-06)
DX: K70.30 Alcoholic cirrhosis of liver without ascites (principal); I85.11 Secondary esophageal varices with bleeding; F10.188 Alcohol abuse with other alcohol-induced disorder; D62 Acute posthemorrhagic anemia; K76.6 Portal hypertension; D69.59 Other secondary thrombocytopenia; D70.4 Cyclic neutropenia; I10 Essential (primary) hypertension; Z79.899 Other long term (current) drug therapy; Z28.1 Immunization not carried out because of patient decision for reasons of belief or group pressure
CPT/HCPCS: 36415; 74177; 76705; 80048; 80053; 82274; 82550; 82607; 82747; 83036; 83690; 84484; 85025; 85610; 85730; 86704; 86706; 86708; 86850; 86900; 86901; 87340; 93005; 96361; 96365; 96375; C9113; J0696; J2354; J2704; J3010; J3490; J7050; Q9967

== ENCOUNTER 2020-01-02 06:58 | Day surgery (SDC) | payer OTHER ==
[2020-01-01 10:27] VITALS: BMI 25.7
[2020-01-02] MEDS ORDERED: Fentanyl 100 MCG/2 ML VIAL ONE (09:59)
[2020-01-02] MEDS ORDERED: PROPOFOL 200 MG/20 ML VIAL ONE (10:43)
--- NOTE | 2020-01-02 11:41 | OP ---
DATE OF PROCEDURE: 01/02/2020 PROCEDURE PERFORMED: Esophagogastroduodenoscopy with band ligation. INDICATIONS FOR PROCEDURE: Personal history of bleeding esophageal varices, band ligation to eradication. DESCRIPTION OF PROCEDURE: After the risks and benefits of the procedure were explained to the patient including risks of bleeding, infection, perforation, reactions to anesthesia, aspiration, and/or pain, informed consent was obtained. The patient was then taken to the endoscopy suite, where he was placed in the left lateral decubitus position. Once in proper position, deep sedation was administered via propofol and anesthesia support. Once adequate sedation was achieved, the standard gastroscope was introduced into the mouth with intubation of the esophagus, stomach, and the proximal small intestines with the findings listed below. The patient tolerated the procedure well with no immediate perioperative complications. Upon conclusion of the procedure, he was transferred to Day Stay in satisfactory condition. FINDINGS: Esophagus: Normal-appearing mucosa was seen in the proximal and mid esophagus; however, in the distal esophagus, significant white-appearing tissue and radial type patterns were seen throughout the distal esophagus consistent with prior band ligation and scar formation. There were no esophageal varices seen in the distal esophagus. However, at the gastroesophageal junction, there were 2 areas consistent with a red faviola sign given the increased risk of bleeding from this particular stigmata. Band ligation x3 was performed with good hemostasis achieved. However, during the course of after the 2nd band was placed, significant active bleeding was noted when the patient coughed, the 3rd band was able to be placed successfully with no further bleeding seen after that. Otherwise, there was no evidence of erosions, ulcerations, or mass lesions. Stomach: Increased mucosal erythema was seen throughout the entire stomach and exhibited a mosaic type pattern within the gastric cardia, fundus, and body with greater areas of erythema seen in the cardia, fundus, and proximal body. They did not exhibit any active bleeding at least initially, but with suctioning of the scope, it did ooze a blood from the lining of the stomach, but not a significant amount and it did slow and stop with direct visualization. No additional areas of bleeding were seen with fairly normal-appearing mucosa within the antrum and incisura. Otherwise, there was no evidence of erosions, ulcerations, mass lesions, or gastric varices seen on retroflexion. Duodenum: Normal-appearing mucosa was seen in both the duodenal bulb and second portion of the duodenum. There was no evidence of erosions, ulcerations, mass lesions, or active/recent bleeding. IMPRESSION: 1. Fairly complete absence of distal esophageal varices in the distal esophagus. 2. Red faviola sign seen at the gastroesophageal junction that did exhibit active bleeding. Band ligation x3 was performed with good hemostasis achieved. 3. Moderate portal hypertensive gastropathy with mild oozing of blood. 4. No gastric varices on gastric retroflexion. 5. Significant scar formation in the distal esophagus, consistent with prior band ligation and successful eradication of distal esophageal varices. RECOMMENDATIONS: 1. Would continue to monitor the patient clinically for signs of active GI bleeding. 2. Would continue the patient on PPI 40 mg daily. 3. Would continue nonselective beta-blockade with propranolol 20 mg b.i.d. with target heart rate between 55 and 65 beats per minute. (Heart rate was 67 beats per minute today). 4. Would repeat the upper endoscopy in 8 weeks for repeat evaluation of these bleeding sites. 5. Would have the patient follow up in the GI Clinic as scheduled. Job ID: [id number]
== END 2020-01-02 11:22 | disposition home or self-care (01) ==
LOC: SDC 06:58
PROVIDERS: ATTEND Internal Medicine
PROC: 0W3P8ZZ Control Bleeding in Gastrointestinal Tract, Via Natural or Artificial Opening Endoscopic (ICD-10-PCS; principal; 2020-01-02)
DX: K74.60 Unspecified cirrhosis of liver (principal); I85.11 Secondary esophageal varices with bleeding; Z79.899 Other long term (current) drug therapy; Z87.891 Personal history of nicotine dependence
CPT/HCPCS: J2704; J3010

== ENCOUNTER 2020-02-11 20:00 | Emergency (ER) | payer OTHER ==
--- NOTE | 2020-02-11 20:24 | RAD ---
TWO VIEW CHEST: 02/11/20 HISTORY: Cough, shortness of breath. Lung kearns are clear. No infiltrate. The heart and mediastinum appear normal. Osseous structures unr emarkable. IMPRESSION: No acute abnormality. POS: [facility]
[2020-02-11 20:34] LABS: #Basophils 0.1 thou/uL (0.0-0.2); #Eosinphils 0.1 thou/uL (0.0-0.7); #Lymphocytes 1.8 thou/uL (1.20-3.40); #Monocytes 0.4 thou/uL (0.11-0.59); %Eosinophils 1.7 % (0.0-10.0); %Lymphocytes 41.8 % (21.0-51.0); %Monocytes 8.3 % (0.0-10.0); %Neutrophils 46.3 % (42.0-75.0); Hemoglobin 13.6 g/dL (14.0-18.0); Mean Corpuscular HGB CONC 33.6 g/dL (32.0-36.0); Mean Corpuscular Hemoglobin 31.2 pg (27.0-31.0); Mean Corpuscular Volume 92.7 fL (78.0-98.0); Platelet Count 85 thou/uL (130-400); RBC Distribution Width 15.5 % (11.5-14.5); Red Blood Cell (RBC) Count 4.37 mill/uL (4.70-6.10); White Blood Cell (WBC) Count 4.3 thou/uL (4.8-10.8)
[2020-02-11 20:54] LABS: ALT (SGPT) 43 U/L (8-55); AST (SGOT) 48 U/L (5-34); Albumin 4.2 g/dL (3.5-5.0); Alkaline Phosphatase 155 U/L (40-110); Anion Gap 12 mmol/L (10-20); BUN (Urea Nitrogen) 7 mg/dL (8.4-25.7); Bilirubin, Total 1.5 mg/dL (0.2-1.2); Calc. Creatinine Clearance 0 mL/min (70-130); Calcium 8.9 mg/dL (7.8-10.44); Carbon Dioxide 22 mmol/L (22-29); Chloride 108 mmol/L (98-107); Estimated GFR-MDRD 80; Globulin 2.7 g/dL (2.4-3.5); Glucose 113 mg/dL (70-105); Potassium 3.6 mmol/L (3.5-5.1); Protein, Total 6.9 g/dL (6.0-8.3); Sodium 138 mmol/L (136-145)
--- NOTE | 2020-02-11 22:04 | ULT ---
GALLBLADDER ULTRASOUND: 02/11/20 HISTORY: Epigastric pain and increased liver function tests. FINDINGS: Gallbladder appears unremarkable. No evidence of gallstones. Common duct is normal caliber measured a t 6 mm. Liver appears unremarkable. The pancreas is obscured. The right kidney is unremarkable. IMPRESSION: Unremarkable gallbladder ultrasound. POS: [facility]
--- NOTE | 2020-02-14 14:55 | EKG ---
Test Reason : EMERGENCY Blood Pressure : / mmHG Vent. Rate : 066 BPM Atrial Rate : 066 BPM P-R Int : 100 ms QRS Dur : 094 ms QT Int : 424 ms P-R-T Axes : -11 018 017 degrees QTc Int : 444 ms Sinus rhythm with short [place] Otherwise normal ECG Confirmed by ESTRELLA DIAZ ([id number]), news videotape editor JOSUÉ WILL ([id number] on 02/14/2020 2:54:33 PM Referred By: Confirmed By:ESTRELLA Ferreira
== END 2020-02-11 23:17 | disposition home or self-care (01) ==
LOC: ERS 20:00
DX: K21.9 Gastro-esophageal reflux disease without esophagitis (principal); R07.89 Other chest pain; I10 Essential (primary) hypertension; Z87.891 Personal history of nicotine dependence
CPT/HCPCS: 36415; 71046; 76705; 80053; 84484; 85025; 93005

== ENCOUNTER 2020-09-02 10:54 | Outpatient (CLI) | payer OTHER ==
--- NOTE | 2020-09-02 12:31 | ULT ---
EXAM: US Hepatic Doppler PROVIDED CLINICAL HISTORY: Cirrhosis. Follow-up evaluation. COMPARISON: 11/05/2019. FINDINGS: Pancreas is mostly obscured by bowel gas. There is a echogenic focus within the left hepatic lobe suggesting reverberation artifact which can b e seen with focus of gas. Is difficult to further evaluate on this examination, and follow-up CT abdomen is recommended. No focal hepatic lesion is otherwise visualized. No gallbladder calculus is present. Gallbladder wall is thickened measuring 0.5 cm. There is no peric holecystic fluid. The common duct measures 0.7 cm in diameter. Common duct on study on 02/11/2020 measured 0.6 cm in diameter. No intrahepatic biliary ductal dilatation is appreciated. The spleen is enlarged measuring 14.8 cm. Hepatic Doppler evaluation spectral analysis and color flow evaluation: Arterial waveforms are present within the hepatic and splenic arteries. There is evidence of hepatope alexis flow within the portal, hepatic, and splenic veins. IMPRESSION: 1. Single focus of ringdown artifact within the left hepatic lobe. This cannot be further evaluated o n this examination. This type of artifact within the liver is usually seen with gas. No additional ringdown artifacts are seen. CT abdomen is recommended for further evaluation. 2. Splenomegaly. 3. Gallbladder wall thickening without gallbladder calculi. This is a nonspecific finding and can be seen with hypoproteinemia, liver disease, cholecystitis in the correct clinical scenario, or other etiologies. Depending on clinical concern, hepatobiliary study may be helpful for further evaluation. 4. Dilatation of the common duct which measures 0.7 cm. No intrahepatic biliary ductal dilatation is seen. 5. Hepatopedal flow.
== END 2020-09-02 10:55 | disposition home or self-care (01) ==
LOC: BICULT 10:54
PROVIDERS: ATTEND Internal Medicine
DX: K70.30 Alcoholic cirrhosis of liver without ascites (principal); I85.01 Esophageal varices with bleeding; R93.2 Abnormal findings on diagnostic imaging of liver and biliary tract; R16.1 Splenomegaly, not elsewhere classified; K83.8 Other specified diseases of biliary tract
CPT/HCPCS: 76705

== ENCOUNTER 2022-09-20 17:02 | Inpatient (IN) | payer OTHER, SELFPAY ==
[2022-09-20] MEDS ORDERED: Ondansetron PF 4 MG/2 ML Vial ONE (17:28)
[2022-09-20] MEDS ORDERED: Pantoprazole 40 MG VIAL ONE (17:28)
[2022-09-20] MEDS ORDERED: Octreotide Acetate 1,250 MCG in Sodium Chloride 0.9% 250 ML 250 ML IVPB SCH (17:45)
[2022-09-20] MEDS ORDERED: Octreotide Acetate 50 MCG/ML AMP SLOW IVP SCH (17:45)
[2022-09-20 17:49] LABS: #Eosinphils 0.1 thou/uL (0.0-0.7); #Lymphocytes 2.4 thou/uL (1.20-3.40); #Monocytes 0.8 thou/uL (0.11-0.59); %Basophils 0.2 % (0.0-1.0); %Eosinophils 0.6 % (0.0-10.0); %Lymphocytes 23.6 % (21.0-51.0); %Neutrophils 67.6 % (42.0-75.0); Hemoglobin 11.1 g/dL (14.0-18.0); Mean Corpuscular HGB CONC 34.6 g/dL (32.0-36.0); Mean Corpuscular Hemoglobin 36.4 pg (27.0-31.0); RBC Distribution Width 12.8 % (11.5-14.5); Red Blood Cell (RBC) Count 3.07 mill/uL (4.70-6.10); White Blood Cell (WBC) Count 10.3 thou/uL (4.8-10.8)
[2022-09-20 17:59] LABS: INR-International Normal Ratio 1.3; PTT 28.8 sec (22.9-36.1); Prothrombin Time 16.1 sec (12.0-14.7)
[2022-09-20 18:08] LABS: ALT (SGPT) 48 U/L (8-55); AST (SGOT) 40 U/L (5-34); Albumin 3.4 g/dL (3.5-5.0); Alkaline Phosphatase 112 U/L (40-110); Anion Gap 10 mmol/L (10-20); BUN (Urea Nitrogen) 22 mg/dL (8.4-25.7); Bilirubin, Total 1.6 mg/dL (0.2-1.2); CK (CPK) 42 U/L (30-200); Calc. Creatinine Clearance 0 mL/min (70-130); Calcium 8.4 mg/dL (7.8-10.44); Carbon Dioxide 23 mmol/L (22-29); Chloride 111 mmol/L (98-107); Estimated GFR 99; Globulin 2.3 g/dL (2.4-3.5); Glucose 261 mg/dL (70-105); Lipase 19 U/L (8-78); Potassium 4.3 mmol/L (3.5-5.1); Protein, Total 5.7 g/dL (6.0-8.3); Sodium 140 mmol/L (136-145)
[2022-09-20 18:09] LABS: MDiff Complete? YES; Macrocytosis SLIGHT = 6-15 cells (100X) (0-5/hpf); Mean Platelet Volume 9.3 fL (7.4-10.4); Platelet Count 112 thou/uL (130-400); Platelet Morphology Comment Appears Decreased; Polychromasia SLIGHT = 2-3 cells (100X) (0-2/hpf)
[2022-09-20] MEDS ORDERED: Lactated Ringer's 1,000 ML IV SCH (20:00)
[2022-09-20 21:55] VITALS: BMI 25.4
[2022-09-20] MEDS ORDERED: Ondansetron ODT 4 MG TAB PO PRN (22:07)
[2022-09-20] MEDS ORDERED: Ondansetron PF 4 MG/2 ML Vial IVP PRN (22:07)
[2022-09-20] MEDS ORDERED: Propranolol 40 MG TAB PO SCH (22:30)
[2022-09-20] MEDS: cefTRIAXone\\ROCEPHIN 1 GM in Sodium Chloride 0.9% 100 ML IVPB SCH (22:54)
[2022-09-20] MEDS: Pantoprazole 40 MG VIAL IVP SCH (22:55)
[2022-09-21 00:16] LABS: Hemoglobin 9.2 g/dL (14.0-18.0)
[2022-09-21] MEDS: Lactated Ringer's 1,000 ML IV SCH ×3 (00:46→11:19)
[2022-09-21 04:25] LABS: SARS-CoV-2 NAA Rapid Test Not Detected (NotDetected)
[2022-09-21 04:39] LABS: #Eosinphils 0.1 thou/uL (0.0-0.7); #Lymphocytes 2.2 thou/uL (1.20-3.40); #Monocytes 0.6 thou/uL (0.11-0.59); #Neutrophils 4.3 thou/uL (1.40-6.50); %Basophils 0.6 % (0.0-1.0); %Eosinophils 1.3 % (0.0-10.0); %Lymphocytes 30.7 % (21.0-51.0); %Monocytes 8.6 % (0.0-10.0); %Neutrophils 58.9 % (42.0-75.0); ALT (SGPT) 36 U/L (8-55); AST (SGOT) 30 U/L (5-34); Albumin 2.8 g/dL (3.5-5.0); Alkaline Phosphatase 86 U/L (40-110); Anion Gap 10 mmol/L (10-20); BUN (Urea Nitrogen) 19 mg/dL (8.4-25.7); Bilirubin, Total 0.9 mg/dL (0.2-1.2); Calc. Creatinine Clearance 93 mL/min (70-130); Calcium 7.8 mg/dL (7.8-10.44); Carbon Dioxide 23 mmol/L (22-29); Chloride 114 mmol/L (98-107); Estimated GFR 101; Globulin 1.9 g/dL (2.4-3.5); Glucose 206 mg/dL (70-105); Hemoglobin 9.2 g/dL (14.0-18.0); Mean Corpuscular HGB CONC 35.3 g/dL (32.0-36.0); Mean Corpuscular Hemoglobin 38.1 pg (27.0-31.0); Mean Platelet Volume 9.3 fL (7.4-10.4); Platelet Count 87 thou/uL (130-400); Protein, Total 4.7 g/dL (6.0-8.3); RBC Distribution Width 12.9 % (11.5-14.5); Sodium 143 mmol/L (136-145); White Blood Cell (WBC) Count 7.2 thou/uL (4.8-10.8)
[2022-09-21] MEDS: Pantoprazole 40 MG VIAL IVP SCH ×2 (09:24→21:04)
[2022-09-21] MEDS: Propranolol 10 MG TAB PO SCH ×2 (09:24→21:04)
[2022-09-21] MEDS ORDERED: PROPOFOL 200 MG/20 ML VIAL ONE (10:14)
[2022-09-21] MEDS ORDERED: Ketamine 50 MG/ML (10ML VIAL) ONE (10:37)
[2022-09-21] MEDS: Octreotide Acetate 1,250 MCG in Sodium Chloride 0.9% 250 ML 250 ML IVPB SCH (21:04)
[2022-09-21] MEDS: cefTRIAXone\\ROCEPHIN 1 GM in Sodium Chloride 0.9% 100 ML IVPB SCH (21:07)
[2022-09-22] MEDS: Lactated Ringer's 1,000 ML IV SCH (01:36)
[2022-09-22 04:17] LABS: #Eosinphils 0.1 thou/uL (0.0-0.7); #Lymphocytes 1.3 thou/uL (1.20-3.40); #Monocytes 0.4 thou/uL (0.11-0.59); #Neutrophils 1.7 thou/uL (1.40-6.50); %Basophils 0.3 % (0.0-1.0); %Eosinophils 2.4 % (0.0-10.0); %Lymphocytes 36.6 % (21.0-51.0); %Monocytes 10.2 % (0.0-10.0); %Neutrophils 50.5 % (42.0-75.0); Hemoglobin 7.2 g/dL (14.0-18.0); Mean Corpuscular HGB CONC 34.1 g/dL (32.0-36.0); Mean Corpuscular Hemoglobin 36.4 pg (27.0-31.0); Mean Platelet Volume 9.1 fL (7.4-10.4); Platelet Count 52 thou/uL (130-400); RBC Distribution Width 13.3 % (11.5-14.5); Red Blood Cell (RBC) Count 1.96 mill/uL (4.70-6.10); White Blood Cell (WBC) Count 3.4 thou/uL (4.8-10.8)
[2022-09-22 04:33] LABS: ALT (SGPT) 35 U/L (8-55); AST (SGOT) 46 U/L (5-34); Albumin 2.6 g/dL (3.5-5.0); Alkaline Phosphatase 75 U/L (40-110); Anion Gap 10 mmol/L (10-20); BUN (Urea Nitrogen) 15 mg/dL (8.4-25.7); Bilirubin, Total 0.7 mg/dL (0.2-1.2); Calc. Creatinine Clearance 91 mL/min (70-130); Calcium 7.5 mg/dL (7.8-10.44); Carbon Dioxide 23 mmol/L (22-29); Chloride 112 mmol/L (98-107); Estimated GFR 101; Globulin 1.8 g/dL (2.4-3.5); Glucose 146 mg/dL (70-105); Potassium 3.5 mmol/L (3.5-5.1); Protein, Total 4.4 g/dL (6.0-8.3); Sodium 141 mmol/L (136-145)
[2022-09-22 09:00] LABS: Hemoglobin 7.2 g/dL (14.0-18.0)
[2022-09-22] MEDS: Propranolol 10 MG TAB PO SCH ×2 (10:31→20:12)
[2022-09-22] MEDS: Pantoprazole 40 MG VIAL IVP SCH ×2 (10:31→20:11)
[2022-09-22] MEDS ORDERED: Iron, Sodium Ferric Gluconate 250 MG in Sodium Chloride 0.9% 250 ML 250 ML IVPB SCH (15:30)
[2022-09-22] MEDS: Octreotide Acetate 1,250 MCG in Sodium Chloride 0.9% 250 ML 250 ML IVPB SCH (17:18)
[2022-09-22] MEDS: cefTRIAXone\\ROCEPHIN 1 GM in Sodium Chloride 0.9% 100 ML IVPB SCH (20:11)
[2022-09-23 06:23] LABS: #Lymphocytes 0.8 thou/uL (1.20-3.40); #Monocytes 0.2 thou/uL (0.11-0.59); #Neutrophils 1.2 thou/uL (1.40-6.50); %Basophils 0.3 % (0.0-1.0); %Eosinophils 1.7 % (0.0-10.0); %Lymphocytes 36.9 % (21.0-51.0); %Monocytes 9.1 % (0.0-10.0); Mean Corpuscular Hemoglobin 35.2 pg (27.0-31.0); Mean Platelet Volume 8.7 fL (7.4-10.4); Platelet Count 45 thou/uL (130-400); RBC Distribution Width 13.4 % (11.5-14.5); Red Blood Cell (RBC) Count 1.98 mill/uL (4.70-6.10); White Blood Cell (WBC) Count 2.3 thou/uL (4.8-10.8)
[2022-09-23 06:29] LABS: Anion Gap 9 mmol/L (10-20); BUN (Urea Nitrogen) 11 mg/dL (8.4-25.7); Calc. Creatinine Clearance 84 mL/min (70-130); Carbon Dioxide 23 mmol/L (22-29); Chloride 110 mmol/L (98-107); Potassium 3.6 mmol/L (3.5-5.1); Sodium 138 mmol/L (136-145)
[2022-09-23 06:30] LABS: ALT (SGPT) 52 U/L (8-55); AST (SGOT) 73 U/L (5-34); Albumin 2.8 g/dL (3.5-5.0); Alkaline Phosphatase 90 U/L (40-110); Bilirubin, Total 0.7 mg/dL (0.2-1.2); Calcium 7.3 mg/dL (7.8-10.44); Estimated GFR 98; Globulin 1.6 g/dL (2.4-3.5); Glucose 161 mg/dL (70-105); Protein, Total 4.4 g/dL (6.0-8.3)
[2022-09-23] MEDS: Pantoprazole 40 MG VIAL IVP SCH ×2 (08:08→20:20)
[2022-09-23] MEDS: Propranolol 10 MG TAB PO SCH ×2 (08:12→20:21)
[2022-09-23] MEDS ORDERED: FLU VACC QS2022-23(6MOS UP)/PF 60 MCG/0.5 ML SYRINGE IM ONE (09:00)
[2022-09-23 12:12] LABS: Hemoglobin 7.1 g/dL (14.0-18.0); Mean Corpuscular Hemoglobin 35.2 pg (27.0-31.0); Mean Platelet Volume 9.6 fL (7.4-10.4); Platelet Count 43 thou/uL (130-400); White Blood Cell (WBC) Count 2.3 thou/uL (4.8-10.8)
[2022-09-23] MEDS: Sulfameth/Trimethoprim DS 800-160mg TAB PO SCH (20:20)
[2022-09-23 21:33] LABS: Hemoglobin 8.5 g/dL (14.0-18.0); Mean Corpuscular HGB CONC 32.9 g/dL (32.0-36.0); Mean Corpuscular Hemoglobin 33.6 pg (27.0-31.0); Mean Platelet Volume 9.3 fL (7.4-10.4); Platelet Count 51 thou/uL (130-400); RBC Distribution Width 18.7 % (11.5-14.5); Red Blood Cell (RBC) Count 2.51 mill/uL (4.70-6.10); White Blood Cell (WBC) Count 2.8 thou/uL (4.8-10.8)
[2022-09-24 06:42] LABS: ALT (SGPT) 41 U/L (8-55); AST (SGOT) 57 U/L (5-34); Albumin 2.8 g/dL (3.5-5.0); Alkaline Phosphatase 91 U/L (40-110); Anion Gap 12 mmol/L (10-20); BUN (Urea Nitrogen) 9 mg/dL (8.4-25.7); Bilirubin, Total 1.1 mg/dL (0.2-1.2); Calc. Creatinine Clearance 89 mL/min (70-130); Calcium 7.6 mg/dL (7.8-10.44); Carbon Dioxide 22 mmol/L (22-29); Chloride 109 mmol/L (98-107); Estimated GFR 100; Globulin 1.8 g/dL (2.4-3.5); Glucose 140 mg/dL (70-105); Potassium 3.7 mmol/L (3.5-5.1); Protein, Total 4.6 g/dL (6.0-8.3); Sodium 139 mmol/L (136-145)
[2022-09-24 06:43] LABS: #Eosinphils 0.1 thou/uL (0.0-0.7); #Lymphocytes 0.9 thou/uL (1.20-3.40); #Monocytes 0.3 thou/uL (0.11-0.59); #Neutrophils 1.3 thou/uL (1.40-6.50); %Basophils 0.1 % (0.0-1.0); %Eosinophils 3.1 % (0.0-10.0); %Lymphocytes 35.5 % (21.0-51.0); %Monocytes 10.3 % (0.0-10.0); %Neutrophils 50.9 % (42.0-75.0); Hemoglobin 8.8 g/dL (14.0-18.0); Mean Corpuscular HGB CONC 35.3 g/dL (32.0-36.0); Mean Corpuscular Hemoglobin 35.9 pg (27.0-31.0); Platelet Count 47 thou/uL (130-400); RBC Distribution Width 18.4 % (11.5-14.5); Red Blood Cell (RBC) Count 2.45 mill/uL (4.70-6.10); White Blood Cell (WBC) Count 2.5 thou/uL (4.8-10.8)
[2022-09-24] MEDS: Sulfameth/Trimethoprim DS 800-160mg TAB PO SCH (08:11)
[2022-09-24] MEDS: Propranolol 10 MG TAB PO SCH (08:11)
[2022-09-24] MEDS: Pantoprazole 40 MG VIAL IVP SCH (08:16)
[2022-09-24 08:45] VITALS: BP 125/71; TEMP 98.5
== END 2022-09-24 16:04 | disposition home or self-care (01) | DRG 369 ==
LOC: ERS 17:02 → 2NO 18:27 → T4-A 09-22 16:17
PROVIDERS: ADMIT Student in an Organized Health Care Education/Training Program; ATTEND Student in an Organized Health Care Education/Training Program
PROC: 06L38CZ Occlusion of Esophageal Vein with Extraluminal Device, Via Natural or Artificial Opening Endoscopic (ICD-10-PCS; principal; 2022-09-21)
DX: I85.01 Esophageal varices with bleeding (principal); K76.6 Portal hypertension; N39.0 Urinary tract infection, site not specified; K70.31 Alcoholic cirrhosis of liver with ascites; D53.9 Nutritional anemia, unspecified; I86.4 Gastric varices; Z20.822 Contact with and (suspected) exposure to COVID-19; K31.89 Other diseases of stomach and duodenum; Z79.899 Other long term (current) drug therapy; Z87.891 Personal history of nicotine dependence; Z98.84 Bariatric surgery status
CPT/HCPCS: 36415; 36430; 71045; 76705; 80053; 82105; 82550; 82607; 83690; 83880; 84484; 85025; 85610; 85730; 86850; 86900; 86901; 93005; 96361; 96365; 96366; 96375; C9113; J0696; J2354; J2405; J2704; J2916; J3490; J7050; J7120; P9016; U0002; U0003; U0005

== ENCOUNTER 2022-10-17 06:44 | Day surgery (SDC) | payer OTHER ==
[2022-10-13 12:03] VITALS: BMI 26.1
[2022-10-17] MEDS ORDERED: PROPOFOL 200 MG/20 ML VIAL ONE (09:18)
== END 2022-10-17 10:43 | disposition home or self-care (01) ==
LOC: SDC 06:44
PROVIDERS: ATTEND Internal Medicine
PROC: 06L38CZ Occlusion of Esophageal Vein with Extraluminal Device, Via Natural or Artificial Opening Endoscopic (ICD-10-PCS; principal; 2022-10-17)
DX: K70.30 Alcoholic cirrhosis of liver without ascites (principal); I85.10 Secondary esophageal varices without bleeding; K76.6 Portal hypertension; K31.89 Other diseases of stomach and duodenum; I86.4 Gastric varices; D50.0 Iron deficiency anemia secondary to blood loss (chronic); Z87.891 Personal history of nicotine dependence; Z79.2 Long term (current) use of antibiotics; Z79.899 Other long term (current) drug therapy
CPT/HCPCS: J2704

== ENCOUNTER 2024-06-06 07:39 | Outpatient (CLI) | payer OTHER | END 2024-06-06 07:40 | disposition home or self-care (01) | LOC: BICULT 07:39 | PROVIDERS: ATTEND Student in an Organized Health Care Education/Training Program | DX: Z12.9 Encounter for screening for malignant neoplasm, site unspecified (principal); R18.8 Other ascites; R16.1 Splenomegaly, not elsewhere classified | CPT/HCPCS: 76700 ==